=== PATIENT | male | born 1935 | race Caucasian/White ===

== ENCOUNTER 2018-06-14 15:12 | Inpatient (IN) | payer MEDICARE, MEDICAID ==
[~2018-06-14] VITALS: Ht 177.8 cm; Wt 90.5 kg
[~2018-06-14 15:12] MED LIST: ALLO300T2; AZIT250T7 PO; DOCU-94 PO; DOXA1TAB28; ENAL20TA70 OR; FAMO40TA49 PO; FLUO20CA19; ISOS20TA56; METO-169; TAMS0.4C36 OR; WARF2TAB55 PO
[2018-06-14 16:45] LABS: Basophils # (auto) 0 uL; Basophils % (auto) 0.5 % (0.0-2.0); Eosinophils # (auto) 0.1 uL; Eosinophils % (auto) 0.5 % (0.0-7.0); Hematocrit 30.6 % (41.0-53.0); Hemoglobin 10.2 g/dL (13.5-17.5); Lymphocytes # (auto) 0.6 uL; Lymphocytes % (auto) 6.3 % (10.0-50.0); Mean Corpuscular Hemoglobin 32.1 pg (28.0-32.0); Mean Corpuscular Hgb Conc. 33.3 g/dL (32.0-36.0); Mean Corpuscular Volume 96.5 fL (80.0-100.0); Monocytes # (auto) 0.6 uL; Monocytes % (auto) 6.4 % (0.0-12.0); Neutrophils # (auto) 8.4 uL; Neutrophils % (auto) 86.3 % (37.0-80.0); Platelet Count (auto) 110 10^3/uL (140-450); Red Blood Cells 3.17 10^6/uL (4.5-5.90); Red Cell Distribution Width 15.9 % (11.8-14.3); White Blood Cell 9.8 10^3/uL (4.4-10.8)
[2018-06-14 16:58] LABS: INR 2.3 (0.9-1.15); Partial Thromboplastin Time 51.3 sec (23.78-33.04); Prothrombin Time 23.5 sec (9.27-12.13)
[2018-06-14 17:01] LABS: Albumin 2.9 g/dL (3.4-5.0); BUN/Creatinine Ratio 10.8; Calcium 8.2 mg/dL (8.5-10.1); Magnesium 2.2 mg/dL (1.6-2.6); Potassium 5.1 mmol/L (3.5-5.1)
[2018-06-14 17:07] LABS: Bilirubin, Total 0.4 mg/dL (0.2-1.0); Total Protein 7.1 g/dL (6.4-8.2)
[2018-06-14 17:16] LABS: Urine Bacteria NONE SEEN /hpf (None Seen); Urine Blood Negative /uL (Negative); Urine Hyaline Cast FEW /lpf (0 - 2); Urine Mucus FEW (None Seen); Urine Specific Gravity 1.014 (1.001-1.035); Urine WBC 1 /hpf (0 - 3)
[2018-06-14] MEDS ORDERED: ASPirin 81 mg TAB PO ONE (17:45)
[2018-06-14] MEDS ORDERED: ENOXAPARIN SOD 100 MG/1 ML SYRINGE SC ONE (17:45)
[2018-06-14] MEDS ORDERED: B-CO1CAP6 PO (19:01)
[2018-06-14] MEDS ORDERED: MULT1CAP30 PO (19:01)
[2018-06-14] MEDS ORDERED: FERR27TA2 PO (19:01)
[2018-06-14] MEDS ORDERED: MAGN400T5 OR (19:01)
[2018-06-14] MEDS ORDERED: CETI10TA93 PO (19:01)
[2018-06-14] MEDS ORDERED: B-COCAP34 OR (19:01)
[2018-06-14] MEDS ORDERED: CHOL20007 PO (19:01)
[2018-06-14] MEDS ORDERED: CITA-73 PO (19:01)
[2018-06-14] MEDS ORDERED: MORPHINE SULF INJ 2 MG/ML SYRINGE 1ML IV PRN (21:45)
[2018-06-14] MEDS ORDERED: TEMAZEPAM 15 MG CAP PO PRN (21:45)
[2018-06-14] MEDS ORDERED: ONDANSETRON HCL 4 MG/2 ML VIAL IV PRN (21:45)
[2018-06-14] MEDS ORDERED: HYDROcodone-ACET 5/325MG TAB PO PRN (21:45)
[2018-06-14] MEDS ORDERED: NITROGLYCERIN 0.4 MG SL TAB SL PRN (21:45)
[2018-06-14] MEDS ORDERED: ACETAMINOPHEN 325 MG TAB PO PRN (21:45)
[2018-06-14] MEDS ORDERED: DOXAZOSIN MESYL 2 MG TAB PO SCH (22:00)
[2018-06-14] MEDS ORDERED: METOPROLOL TARTRATE 50 MG TAB PO SCH (22:00)
[2018-06-14 23:00] VITALS: BP 132/83
[2018-06-14] MEDS: FAMOTIDINE 20 MG TAB PO SCH (23:06)
[2018-06-14] MEDS: ISOSORBIDE MONONITRATE 20 MG TAB PO SCH (23:06)
[2018-06-14] MEDS ORDERED: FUROSEMIDE 20 MG/2 ML VIAL IV ONE (23:15)
[2018-06-14] MEDS ORDERED: ALBUTEROL SULF 2.5 MG/0.5ML(0.5%) NEB SOLN NEB PRN (23:30)
[2018-06-14] MEDS ORDERED: METO25TA62 PO (23:46)
[2018-06-15] VITALS (7 sets, daily range): BP systolic 108–145; BP diastolic 73–85
[2018-06-15 05:52] LABS: Basophils # (auto) 0.1 uL; Eosinophils # (auto) 0.1 uL; Eosinophils % (auto) 1.6 % (0.0-7.0); Hematocrit 33.1 % (41.0-53.0); Lymphocytes # (auto) 1.1 uL; Lymphocytes % (auto) 16.2 % (10.0-50.0); Mean Corpuscular Hemoglobin 33.6 pg (28.0-32.0); Mean Corpuscular Hgb Conc. 33.2 g/dL (32.0-36.0); Mean Corpuscular Volume 101.3 fL (80.0-100.0); Monocytes # (auto) 0.5 uL; Monocytes % (auto) 7.6 % (0.0-12.0); Neutrophils # (auto) 4.8 uL; Neutrophils % (auto) 73.6 % (37.0-80.0); Nucleated Red Blood Cells % 0.1 %; Platelet Count (auto) 129 10^3/uL (140-450); Red Blood Cells 3.26 10^6/uL (4.5-5.90); White Blood Cell 6.6 10^3/uL (4.4-10.8)
[2018-06-15 06:23] LABS: Alanine Aminotransferase 29 U/L (16-61); Albumin 3.3 g/dL (3.4-5.0); Anion Gap 8 (5-15); Aspartate Aminotransferase 27 U/L (15-37); BUN/Creatinine Ratio 11.4; Blood Urea Nitrogen 20 mg/dL (7-18); Calcium 9.1 mg/dL (8.5-10.1); Carbon Dioxide 22 mmol/L (21-32); Chloride 110 mmol/L (98-107); GFR African American 48 mL/min; GFR Non-African American 40 mL/min; Glucose 89 mg/dL (74-106); Potassium 4.9 mmol/L (3.5-5.1); Sodium 140 mmol/L (136-145)
[2018-06-15 06:25] LABS: Alkaline Phosphatase 139 U/L (45-117); Bilirubin, Total 0.6 mg/dL (0.2-1.0); Total Protein 8.2 g/dL (6.4-8.2)
[2018-06-15] MEDS ORDERED: FUROSEMIDE 40 MG TAB PO SCH (10:00)
[2018-06-15] MEDS: METOPROLOL SUCCINATE XL 50 MG TAB PO SCH ×2 (10:55→22:51)
[2018-06-15] MEDS: ASPirin 81 mg TAB PO SCH (10:55)
[2018-06-15] MEDS: ENALAPRIL MALEATE 10 MG TAB PO SCH (10:56)
[2018-06-15] MEDS: ALLOPURINOL 300 MG TAB PO SCH (10:56)
[2018-06-15] MEDS ORDERED: SODIUM CHLORIDE 0.9% 1,000 ML IV ONE (14:15)
[2018-06-15 14:32] LABS: INR 1.91 (0.9-1.15); Prothrombin Time 19.7 sec (9.27-12.13)
[2018-06-15] MEDS ORDERED: WARFARIN SODIUM 2.5 MG TAB PO ONE (17:00)
[2018-06-15] MEDS: ISOSORBIDE MONONITRATE 20 MG TAB PO SCH (22:50)
[2018-06-15] MEDS: FAMOTIDINE 20 MG TAB PO SCH (22:51)
[2018-06-16 05:49] VITALS: BP 107/77
[2018-06-16 05:54] LABS: INR 1.69 (0.9-1.15); Prothrombin Time 17.6 sec (9.27-12.13)
[2018-06-16 06:10] LABS: Albumin 3.1 g/dL (3.4-5.0); BUN/Creatinine Ratio 14.8; Bilirubin, Total 0.5 mg/dL (0.2-1.0); Calcium 8.6 mg/dL (8.5-10.1); Potassium 4.6 mmol/L (3.5-5.1); Total Protein 7.5 g/dL (6.4-8.2)
[2018-06-16 08:00] VITALS: BP 115/81
[2018-06-16] MEDS: ASPirin 81 mg TAB PO SCH (10:00)
[2018-06-16] MEDS: METOPROLOL SUCCINATE XL 50 MG TAB PO SCH ×2 (10:04→22:29)
[2018-06-16] MEDS: ENALAPRIL MALEATE 10 MG TAB PO SCH (10:04)
[2018-06-16] MEDS: ALLOPURINOL 300 MG TAB PO SCH (10:04)
[2018-06-16 12:00] VITALS: BP 110/75
[2018-06-16] MEDS ORDERED: FUROSEMIDE 40 MG TAB PO ONE (12:45)
[2018-06-16 17:00] VITALS: BP 98/58
[2018-06-16] MEDS ORDERED: WARFARIN SODIUM 5 MG TAB PO ONE (17:00)
[2018-06-16] MEDS ORDERED: TAMSULOSIN HYDROCHLORIDE 0.4 MG CAP PO SCH (18:00)
[2018-06-16 21:30] VITALS: BP 122/77
[2018-06-16] MEDS: FAMOTIDINE 20 MG TAB PO SCH (22:30)
[2018-06-16] MEDS: ISOSORBIDE MONONITRATE 20 MG TAB PO SCH (22:30)
[2018-06-17 04:59] VITALS: BP 97/64
[2018-06-17 06:12] LABS: Basophils # (auto) 0.1 uL; Basophils % (auto) 0.9 % (0.0-2.0); Eosinophils # (auto) 0.2 uL; Eosinophils % (auto) 3.4 % (0.0-7.0); Hematocrit 32.1 % (41.0-53.0); Hemoglobin 10.6 g/dL (13.5-17.5); Lymphocytes % (auto) 17.1 % (10.0-50.0); Mean Corpuscular Volume 97.1 fL (80.0-100.0); Monocytes # (auto) 0.5 uL; Monocytes % (auto) 8.7 % (0.0-12.0); Neutrophils # (auto) 4.1 uL; Neutrophils % (auto) 69.9 % (37.0-80.0); Nucleated Red Blood Cells % 0.1 %; Platelet Count (auto) 123 10^3/uL (140-450); Red Blood Cells 3.31 10^6/uL (4.5-5.90); Red Cell Distribution Width 15.6 % (11.8-14.3); White Blood Cell 5.8 10^3/uL (4.4-10.8)
[2018-06-17 06:24] LABS: INR 1.63 (0.9-1.15); Partial Thromboplastin Time 44.6 sec (23.78-33.04)
[2018-06-17 06:31] LABS: Potassium 4.3 mmol/L (3.5-5.1)
[2018-06-17 06:39] LABS: BUN/Creatinine Ratio 15.5; Calcium 8.9 mg/dL (8.5-10.1)
[2018-06-17] MEDS ORDERED: ALLOPURINOL 300 MG TAB PO SCH (10:00)
[2018-06-17] MEDS ORDERED: ENALAPRIL MALEATE 10 MG TAB PO SCH (10:00)
[2018-06-17] MEDS ORDERED: FUROSEMIDE 40 MG TAB PO SCH (10:00)
[2018-06-17] MEDS: METOPROLOL SUCCINATE XL 50 MG TAB PO SCH (10:55)
[2018-06-17 12:50] VITALS: BP 96/68
[2018-06-17 13:39] VITALS: BP 109/72
[2018-06-17] MEDS ORDERED: WARFARIN SODIUM 5 MG TAB PO ONE (17:00)
== END 2018-06-17 15:30 | disposition home or self-care (01) | DRG 280 ==
LOC: EDUNIT# 15:12 → ER 15:12 → TELE 15:13 → TELE-EAST 22:21
PROVIDERS: ADMIT Nurse Practitioner; ATTEND Internal Medicine
DX: I21.4 Non-ST elevation (NSTEMI) myocardial infarction (principal); I50.43 Acute on chronic combined systolic (congestive) and diastolic (congestive) heart failure; I13.0 Hypertensive heart and chronic kidney disease with heart failure and stage 1 through stage 4 chronic kidney disease, or unspecified chronic kidney disease; D68.69 Other thrombophilia; D64.9 Anemia, unspecified; J44.9 Chronic obstructive pulmonary disease, unspecified; I48.91 Unspecified atrial fibrillation; N40.0 Benign prostatic hyperplasia without lower urinary tract symptoms; M10.9 Gout, unspecified; N18.3 Chronic kidney disease, stage 3 (moderate); I25.10 Atherosclerotic heart disease of native coronary artery without angina pectoris; F32.9 Major depressive disorder, single episode, unspecified; E78.5 Hyperlipidemia, unspecified; Z80.1 Family history of malignant neoplasm of trachea, bronchus and lung; Z80.8 Family history of malignant neoplasm of other organs or systems; Z82.0 Family history of epilepsy and other diseases of the nervous system; Z82.49 Family history of ischemic heart disease and other diseases of the circulatory system; Z82.5 Family history of asthma and other chronic lower respiratory diseases; Z82.62 Family history of osteoporosis; Z83.3 Family history of diabetes mellitus; I25.2 Old myocardial infarction; Z85.828 Personal history of other malignant neoplasm of skin; Z95.810 Presence of automatic (implantable) cardiac defibrillator; Z82.3 Family history of stroke; Z81.8 Family history of other mental and behavioral disorders; Z80.42 Family history of malignant neoplasm of prostate; Z80.3 Family history of malignant neoplasm of breast
CPT/HCPCS: 36415; 71045; 73700; 80048; 80053; 81001; 83735; 83880; 84484; 85025; 85610; 85730; 87081; 93005; 93306; 96374

== ENCOUNTER 2018-07-04 13:35 | Inpatient (IN) | payer MEDICARE, MEDICAID ==
[~2018-07-04] VITALS: Ht 172.7 cm; Wt 93.0 kg
[~2018-07-04 13:35] MED LIST changes: +B-CO1CAP6 PO; +B-COCAP34 OR; +CETI10TA93 PO; +CHOL20007 PO; +CITA-73 PO; -DOXA1TAB28; +FERR27TA2 PO; +MAGN400T5 OR; -METO-169; +METO25TA62 PO; +MULT1CAP30 PO
[2018-07-04] MEDS ORDERED: SODIUM CHLORIDE 0.9% 500 ML IVB ONE (13:50)
[2018-07-04 14:44] LABS: Basophils # (auto) 0 uL; Basophils % (auto) 0.2 % (0.0-2.0); Eosinophils # (auto) 0 uL; Hematocrit 33.4 % (41.0-53.0); Hemoglobin 10.9 g/dL (13.5-17.5); Lymphocytes # (auto) 0.3 uL; Lymphocytes % (auto) 2.5 % (10.0-50.0); Mean Corpuscular Hemoglobin 31.5 pg (28.0-32.0); Mean Corpuscular Hgb Conc. 32.6 g/dL (32.0-36.0); Mean Corpuscular Volume 96.6 fL (80.0-100.0); Monocytes # (auto) 0.6 uL; Monocytes % (auto) 5.4 % (0.0-12.0); Neutrophils # (auto) 10.7 uL; Neutrophils % (auto) 91.9 % (37.0-80.0); Red Blood Cells 3.45 10^6/uL (4.5-5.90); White Blood Cell 11.6 10^3/uL (4.4-10.8)
[2018-07-04] MEDS ORDERED: LEVOFLOXACIN 750MG 150 ML IV ONE (14:45)
[2018-07-04 15:05] LABS: INR 2.31 (0.9-1.15); Partial Thromboplastin Time 43.7 sec (23.78-33.04); Prothrombin Time 23.6 sec (9.27-12.13)
[2018-07-04 15:07] LABS: Platelet Count (auto) 97 10^3/uL (140-450)
[2018-07-04 15:12] LABS: Alanine Aminotransferase 24 U/L (16-61); Albumin 3.1 g/dL (3.4-5.0); Alkaline Phosphatase 112 U/L (45-117); Anion Gap 11 (5-15); Aspartate Aminotransferase 30 U/L (15-37); Bilirubin, Total 0.5 mg/dL (0.2-1.0); Blood Alcohol < 3.0 mg/dL (0-5); Blood Urea Nitrogen 34 mg/dL (7-18); Calcium 8.5 mg/dL (8.5-10.1); Carbon Dioxide 23 mmol/L (21-32); Chloride 106 mmol/L (98-107); GFR African American 28 mL/min; GFR Non-African American 23 mL/min; Glucose 98 mg/dL (74-106); Magnesium 2.8 mg/dL (1.6-2.6); Potassium 4.9 mmol/L (3.5-5.1); Sodium 140 mmol/L (136-145); Total Protein 7.6 g/dL (6.4-8.2)
[2018-07-04] MEDS ORDERED: LACTULOSE 20Gm/30ML SOLN PO PRN (15:15)
[2018-07-04] MEDS ORDERED: PROMETHAZINE HCL 25 MG/ML 1ML IV PRN (15:15)
[2018-07-04] MEDS ORDERED: HYDROcodone-ACET 5/325MG TAB PO PRN (15:15)
[2018-07-04] MEDS ORDERED: LORazepam 0.5 MG TAB PO PRN (15:15)
[2018-07-04] MEDS ORDERED: MORPHINE SULF INJ 2 MG/ML SYRINGE 1ML IV PRN ×2 (15:15)
[2018-07-04] MEDS ORDERED: NITROGLYCERIN 0.4 MG SL TAB SL PRN (15:15)
[2018-07-04] MEDS ORDERED: ACETAMINOPHEN 500 MG TAB PO PRN (15:15)
[2018-07-04] MEDS ORDERED: PANTOPRAZOLE 40 MG TAB PO ONE (15:30)
[2018-07-04] MEDS ORDERED: cefTRIAXone 1GM/10ml IVPUSH 10 ML IV SCH (15:30)
[2018-07-04] MEDS ORDERED: AZITHROMYCIN 500MG/ 250ML 250 ML IV ONE (15:30)
[2018-07-04] MEDS ORDERED: ENOXAPARIN SOD 40 MG/0.4 ML SYRINGE SC ONE (15:30)
[2018-07-04] MEDS ORDERED: SODIUM CHLORIDE 0.9% 1,000 ML IV ONE (16:00)
[2018-07-04] MEDS: SODIUM CHLORIDE 0.9% 1,000 ML IV SCH ×2 (16:21→21:43)
[2018-07-04 16:58] LABS: Amylase 52 U/L (25-115); Lipase 148 U/L (73-393)
[2018-07-04] MEDS: ALBUTEROL SULF 2.5 MG/0.5ML(0.5%) NEB SOLN NEB SCH (18:13)
[2018-07-04 18:47] LABS: Hemoglobin 10.6 g/dL (13.5-17.5)
[2018-07-04] MEDS: TEMAZEPAM 15 MG CAP PO PRN (21:42)
[2018-07-04] MEDS: CARVEDILOL 3.125 MG TAB PO SCH (21:43)
[2018-07-05 01:04] LABS: Hematocrit 32.7 % (41.0-53.0); Hemoglobin 10.4 g/dL (13.5-17.5)
[2018-07-05] MEDS: ALBUTEROL SULF 2.5 MG/0.5ML(0.5%) NEB SOLN NEB SCH ×4 (01:12→18:42)
[2018-07-05 06:05] VITALS: BP 97/50
[2018-07-05 06:09] LABS: Basophils # (auto) 0.1 uL; Basophils % (auto) 0.6 % (0.0-2.0); Eosinophils # (auto) 0 uL; Eosinophils % (auto) 0.3 % (0.0-7.0); Hemoglobin 10.3 g/dL (13.5-17.5); Lymphocytes # (auto) 0.6 uL; Lymphocytes % (auto) 7.1 % (10.0-50.0); Mean Corpuscular Volume 96.8 fL (80.0-100.0); Monocytes # (auto) 0.5 uL; Monocytes % (auto) 5.7 % (0.0-12.0); Neutrophils # (auto) 7.7 uL; Neutrophils % (auto) 86.3 % (37.0-80.0); Platelet Count (auto) 78 10^3/uL (140-450); Red Blood Cells 3.21 10^6/uL (4.5-5.90); Red Cell Distribution Width 15.9 % (11.8-14.3); White Blood Cell 8.9 10^3/uL (4.4-10.8)
[2018-07-05 06:51] LABS: Albumin 2.8 g/dL (3.4-5.0); BUN/Creatinine Ratio 15.9; Bilirubin, Total 0.7 mg/dL (0.2-1.0); Calcium 8.6 mg/dL (8.5-10.1); Potassium 4.7 mmol/L (3.5-5.1); Total Protein 6.9 g/dL (6.4-8.2)
[2018-07-05 07:50] VITALS: BP 104/66
[2018-07-05] MEDS: cefTRIAXone 1GM/10ml IVPUSH 10 ML IV SCH (09:14)
[2018-07-05] MEDS ORDERED: PANTOPRAZOLE 40 MG TAB PO SCH (10:00)
[2018-07-05] MEDS ORDERED: ENOXAPARIN SOD 40 MG/0.4 ML SYRINGE SC SCH (10:00)
[2018-07-05] MEDS: CARVEDILOL 3.125 MG TAB PO SCH ×2 (10:00→21:24)
[2018-07-05] MEDS: AZITHROMYCIN 500MG/ 250ML 250 ML IV SCH (10:09)
[2018-07-05 11:47] VITALS: BP 101/61
[2018-07-05] MEDS ORDERED: PANTOPRAZOLE 40 MG/10 ML VIAL IV ONE (12:15)
[2018-07-05 14:01] LABS: INR 2.5 (0.9-1.15); Prothrombin Time 25.4 sec (9.27-12.13)
[2018-07-05] MEDS: SODIUM CHLORIDE 0.9% 1,000 ML IV SCH ×2 (14:36→23:56)
[2018-07-05 15:50] VITALS: BP 97/64
[2018-07-05] MEDS ORDERED: WARFARIN SODIUM 2.5 MG TAB PO ONE (17:00)
[2018-07-05] MEDS: TAMSULOSIN HYDROCHLORIDE 0.4 MG CAP PO SCH (17:35)
[2018-07-05 19:50] VITALS: BP 123/62
[2018-07-05] MEDS: TEMAZEPAM 15 MG CAP PO PRN (23:43)
[2018-07-06] VITALS: BP 108/66
[2018-07-06] MEDS: ALBUTEROL SULF 2.5 MG/0.5ML(0.5%) NEB SOLN NEB SCH ×4 (00:25→18:11)
[2018-07-06 04:00] VITALS: BP 105/73
[2018-07-06 07:10] LABS: Basophils # (auto) 0 uL; Eosinophils # (auto) 0.1 uL; Hemoglobin 9.1 g/dL (13.5-17.5); Lymphocytes # (auto) 0.5 uL; Mean Corpuscular Hgb Conc. 32.5 g/dL (32.0-36.0); Monocytes # (auto) 0.4 uL
[2018-07-06 07:13] LABS: Basophils % (auto) 0.3 % (0.0-2.0); Lymphocytes % (auto) 8.9 % (10.0-50.0); Mean Corpuscular Hemoglobin 31.4 pg (28.0-32.0); Mean Corpuscular Volume 96.7 fL (80.0-100.0); Monocytes % (auto) 7.1 % (0.0-12.0); Neutrophils # (auto) 4.5 uL; Neutrophils % (auto) 82.7 % (37.0-80.0); Platelet Count (auto) 66 10^3/uL (140-450); Red Cell Distribution Width 16.1 % (11.8-14.3); White Blood Cell 5.4 10^3/uL (4.4-10.8)
[2018-07-06 07:16] LABS: Albumin 2.7 g/dL (3.4-5.0); BUN/Creatinine Ratio 14.4; Bilirubin, Total 0.6 mg/dL (0.2-1.0); Calcium 8.6 mg/dL (8.5-10.1); Magnesium 2.2 mg/dL (1.6-2.6); Total Protein 6.8 g/dL (6.4-8.2)
[2018-07-06 07:46] LABS: INR 2.29 (0.9-1.15); Prothrombin Time 23.4 sec (9.27-12.13)
[2018-07-06 08:00] VITALS: BP 107/79
[2018-07-06] MEDS ORDERED: MAGNESIUM OXIDE 400 MG TAB PO SCH (10:00)
[2018-07-06] MEDS: CARVEDILOL 3.125 MG TAB PO SCH ×2 (10:00→22:00)
[2018-07-06] MEDS ORDERED: ENALAPRIL MALEATE 10 MG TAB PO SCH ×2 (10:00)
[2018-07-06] MEDS: MAGNESIUM OXIDE 400 MG TAB PO SCH (10:42)
[2018-07-06] MEDS: FLUoxetine HCL 20 MG CAP PO SCH (10:42)
[2018-07-06] MEDS: AZITHROMYCIN 500MG/ 250ML 250 ML IV SCH (10:42)
[2018-07-06] MEDS: cefTRIAXone 1GM/10ml IVPUSH 10 ML IV SCH (10:43)
[2018-07-06] MEDS: PANTOPRAZOLE 40 MG/10 ML VIAL IV SCH (10:43)
[2018-07-06 12:00] VITALS: BP 102/65
[2018-07-06 16:00] VITALS: BP 111/65
[2018-07-06] MEDS: SODIUM CHLORIDE 0.9% 1,000 ML IV SCH (16:15)
[2018-07-06] MEDS ORDERED: WARFARIN SODIUM 1 MG TAB PO ONE (17:00)
[2018-07-06] MEDS: TAMSULOSIN HYDROCHLORIDE 0.4 MG CAP PO SCH (17:47)
[2018-07-06 19:59] VITALS: BP 100/63
[2018-07-06] MEDS: TEMAZEPAM 15 MG CAP PO PRN (22:14)
[2018-07-07] MEDS: ALBUTEROL SULF 2.5 MG/0.5ML(0.5%) NEB SOLN NEB SCH ×4 (00:07→19:52)
[2018-07-07] MEDS: SODIUM CHLORIDE 0.9% 1,000 ML IV SCH ×3 (01:05→13:34)
[2018-07-07 05:17] LABS: Eosinophils # (auto) 0.1 uL; Eosinophils % (auto) 2.2 % (0.0-7.0); Hemoglobin 9.1 g/dL (13.5-17.5); Lymphocytes # (auto) 0.4 uL; Lymphocytes % (auto) 12.1 % (10.0-50.0); Mean Corpuscular Hemoglobin 32.2 pg (28.0-32.0); Platelet Count (auto) 63 10^3/uL (140-450); White Blood Cell 3.5 10^3/uL (4.4-10.8)
[2018-07-07 05:19] LABS: Basophils # (auto) 0 uL; Basophils % (auto) 0.7 % (0.0-2.0); Hematocrit 27.4 % (41.0-53.0); Mean Corpuscular Hgb Conc. 33.2 g/dL (32.0-36.0); Mean Corpuscular Volume 97.1 fL (80.0-100.0); Monocytes # (auto) 0.2 uL; Neutrophils # (auto) 2.8 uL; Red Blood Cells 2.82 10^6/uL (4.5-5.90); Red Cell Distribution Width 15.6 % (11.8-14.3)
[2018-07-07 05:29] LABS: INR 2.35 (0.9-1.15)
[2018-07-07 05:36] LABS: Albumin 2.6 g/dL (3.4-5.0); BUN/Creatinine Ratio 12.4; Bilirubin, Total 0.5 mg/dL (0.2-1.0); Calcium 8.5 mg/dL (8.5-10.1); Potassium 4.4 mmol/L (3.5-5.1); Total Protein 6.5 g/dL (6.4-8.2)
[2018-07-07 07:50] VITALS: BP 109/61
[2018-07-07] MEDS: cefTRIAXone 1GM/10ml IVPUSH 10 ML IV SCH (09:15)
[2018-07-07] MEDS: PANTOPRAZOLE 40 MG/10 ML VIAL IV SCH (10:35)
[2018-07-07] MEDS: MAGNESIUM OXIDE 400 MG TAB PO SCH (10:36)
[2018-07-07] MEDS: FLUoxetine HCL 20 MG CAP PO SCH (10:36)
[2018-07-07] MEDS: AZITHROMYCIN 500MG/ 250ML 250 ML IV SCH (10:37)
[2018-07-07] MEDS: CARVEDILOL 3.125 MG TAB PO SCH ×2 (10:37→22:00)
[2018-07-07 11:51] VITALS: BP 102/69
[2018-07-07 14:34] VITALS: BP 102/69
[2018-07-07 16:00] VITALS: BP 105/74
[2018-07-07] MEDS ORDERED: WARFARIN SODIUM 2.5 MG TAB PO ONE (17:00)
[2018-07-07] MEDS: TAMSULOSIN HYDROCHLORIDE 0.4 MG CAP PO SCH (17:31)
[2018-07-07] MEDS: TEMAZEPAM 15 MG CAP PO PRN (21:00)
[2018-07-07 22:00] VITALS: BP 99/62
[2018-07-08] MEDS: ALBUTEROL SULF 2.5 MG/0.5ML(0.5%) NEB SOLN NEB SCH ×4 (00:39→19:26)
[2018-07-08 05:00] VITALS: BP 115/64
[2018-07-08] MEDS: SODIUM CHLORIDE 0.9% 1,000 ML IV SCH ×3 (05:25→21:29)
[2018-07-08 07:08] LABS: Basophils # (auto) 0 uL; Basophils % (auto) 0.5 % (0.0-2.0); Eosinophils # (auto) 0.1 uL; Eosinophils % (auto) 2.9 % (0.0-7.0); Hematocrit 27.6 % (41.0-53.0); Hemoglobin 9.2 g/dL (13.5-17.5); Lymphocytes # (auto) 0.3 uL; Lymphocytes % (auto) 9.7 % (10.0-50.0); Mean Corpuscular Hemoglobin 32.3 pg (28.0-32.0); Mean Corpuscular Hgb Conc. 33.2 g/dL (32.0-36.0); Mean Corpuscular Volume 97.3 fL (80.0-100.0); Monocytes # (auto) 0.3 uL; Monocytes % (auto) 8.6 % (0.0-12.0); Neutrophils # (auto) 2.7 uL; Neutrophils % (auto) 78.3 % (37.0-80.0); Platelet Count (auto) 71 10^3/uL (140-450); Red Blood Cells 2.83 10^6/uL (4.5-5.90); Red Cell Distribution Width 15.8 % (11.8-14.3); White Blood Cell 3.4 10^3/uL (4.4-10.8)
[2018-07-08 07:16] LABS: Calcium 8.7 mg/dL (8.5-10.1); Potassium 4.3 mmol/L (3.5-5.1)
[2018-07-08 07:23] LABS: Albumin 2.5 g/dL (3.4-5.0); Bilirubin, Total 0.6 mg/dL (0.2-1.0); Total Protein 6.5 g/dL (6.4-8.2)
[2018-07-08 07:26] LABS: INR 2.53 (0.9-1.15); Prothrombin Time 25.7 sec (9.27-12.13)
[2018-07-08 09:00] VITALS: BP 110/70
[2018-07-08] MEDS: cefTRIAXone 1GM/10ml IVPUSH 10 ML IV SCH (09:37)
[2018-07-08] MEDS: PANTOPRAZOLE 40 MG/10 ML VIAL IV SCH (09:37)
[2018-07-08] MEDS: MAGNESIUM OXIDE 400 MG TAB PO SCH (09:39)
[2018-07-08] MEDS: FLUoxetine HCL 20 MG CAP PO SCH (09:39)
[2018-07-08] MEDS: AZITHROMYCIN 500MG/ 250ML 250 ML IV SCH (09:40)
[2018-07-08] MEDS: CARVEDILOL 3.125 MG TAB PO SCH ×2 (09:40→21:28)
[2018-07-08 13:00] VITALS: BP 107/74
[2018-07-08 17:00] VITALS: BP 109/67
[2018-07-08] MEDS ORDERED: WARFARIN SODIUM 2.5 MG TAB PO ONE (17:00)
[2018-07-08] MEDS: TAMSULOSIN HYDROCHLORIDE 0.4 MG CAP PO SCH (17:40)
[2018-07-08] MEDS: TEMAZEPAM 15 MG CAP PO PRN (21:28)
[2018-07-08 22:00] VITALS: BP 118/70
[2018-07-09] MEDS: ALBUTEROL SULF 2.5 MG/0.5ML(0.5%) NEB SOLN NEB SCH ×4 (00:31→18:32)
[2018-07-09 05:00] VITALS: BP 114/76
[2018-07-09] MEDS: SODIUM CHLORIDE 0.9% 1,000 ML IV SCH ×3 (05:38→17:27)
[2018-07-09 06:41] LABS: INR 2.58 (0.9-1.15); Prothrombin Time 26.2 sec (9.27-12.13)
[2018-07-09 06:46] LABS: Basophils # (auto) 0 uL; Basophils % (auto) 0.6 % (0.0-2.0); Eosinophils # (auto) 0.1 uL; Eosinophils % (auto) 2.9 % (0.0-7.0); Hemoglobin 9.3 g/dL (13.5-17.5); Lymphocytes # (auto) 0.4 uL; Lymphocytes % (auto) 10.6 % (10.0-50.0); Mean Corpuscular Hemoglobin 32.2 pg (28.0-32.0); Mean Corpuscular Hgb Conc. 33.1 g/dL (32.0-36.0); Mean Corpuscular Volume 97.1 fL (80.0-100.0); Monocytes # (auto) 0.4 uL; Monocytes % (auto) 9.6 % (0.0-12.0); Neutrophils % (auto) 76.3 % (37.0-80.0); Nucleated Red Blood Cells % 0.1 %; Platelet Count (auto) 79 10^3/uL (140-450); Red Blood Cells 2.88 10^6/uL (4.5-5.90); Red Cell Distribution Width 15.6 % (11.8-14.3); White Blood Cell 3.9 10^3/uL (4.4-10.8)
[2018-07-09 06:53] LABS: Potassium 4.2 mmol/L (3.5-5.1)
[2018-07-09 06:58] LABS: Albumin 2.6 g/dL (3.4-5.0); BUN/Creatinine Ratio 11.4; Bilirubin, Total 0.4 mg/dL (0.2-1.0); Calcium 8.7 mg/dL (8.5-10.1); Total Protein 6.5 g/dL (6.4-8.2)
[2018-07-09 08:30] VITALS: BP 121/78
[2018-07-09] MEDS: AZITHROMYCIN 500MG/ 250ML 250 ML IV SCH (09:30)
[2018-07-09] MEDS: PANTOPRAZOLE 40 MG/10 ML VIAL IV SCH (09:30)
[2018-07-09] MEDS: cefTRIAXone 1GM/10ml IVPUSH 10 ML IV SCH (09:30)
[2018-07-09] MEDS: FLUoxetine HCL 20 MG CAP PO SCH (09:31)
[2018-07-09] MEDS: MAGNESIUM OXIDE 400 MG TAB PO SCH (09:31)
[2018-07-09] MEDS: CARVEDILOL 3.125 MG TAB PO SCH ×2 (09:32→21:28)
[2018-07-09 13:08] VITALS: BP 137/85
[2018-07-09 16:56] VITALS: BP 110/68
[2018-07-09] MEDS ORDERED: WARFARIN SODIUM 2.5 MG TAB PO ONE (17:00)
[2018-07-09] MEDS: TAMSULOSIN HYDROCHLORIDE 0.4 MG CAP PO SCH (17:26)
[2018-07-09] MEDS: TEMAZEPAM 15 MG CAP PO PRN (21:28)
[2018-07-09 22:34] VITALS: BP 110/74
[2018-07-10] MEDS: ALBUTEROL SULF 2.5 MG/0.5ML(0.5%) NEB SOLN NEB SCH ×3 (00:19→11:27)
[2018-07-10] MEDS: SODIUM CHLORIDE 0.9% 1,000 ML IV SCH ×2 (02:18→12:00)
[2018-07-10 05:52] VITALS: BP 119/81
[2018-07-10 07:33] LABS: INR 2.55 (0.9-1.15); Prothrombin Time 25.9 sec (9.27-12.13)
[2018-07-10] MEDS: cefTRIAXone 1GM/10ml IVPUSH 10 ML IV SCH (09:00)
[2018-07-10 09:49] LABS: Basophils # (auto) 0 uL; Basophils % (auto) 0.8 % (0.0-2.0); Eosinophils # (auto) 0.2 uL; Eosinophils % (auto) 3.5 % (0.0-7.0); Hematocrit 29.9 % (41.0-53.0); Hemoglobin 9.5 g/dL (13.5-17.5); Lymphocytes # (auto) 0.6 uL; Lymphocytes % (auto) 13.1 % (10.0-50.0); Mean Corpuscular Hemoglobin 30.8 pg (28.0-32.0); Mean Corpuscular Hgb Conc. 31.7 g/dL (32.0-36.0); Mean Corpuscular Volume 97.4 fL (80.0-100.0); Monocytes # (auto) 0.4 uL; Monocytes % (auto) 8.7 % (0.0-12.0); Neutrophils # (auto) 3.4 uL; Neutrophils % (auto) 73.9 % (37.0-80.0); Nucleated Red Blood Cells % 0.1 %; Platelet Count (auto) 88 10^3/uL (140-450); Red Blood Cells 3.07 10^6/uL (4.5-5.90); Red Cell Distribution Width 15.9 % (11.8-14.3); White Blood Cell 4.6 10^3/uL (4.4-10.8)
[2018-07-10] MEDS: AZITHROMYCIN 500MG/ 250ML 250 ML IV SCH (10:00)
[2018-07-10] MEDS: PANTOPRAZOLE 40 MG/10 ML VIAL IV SCH (10:00)
[2018-07-10 10:01] LABS: BUN/Creatinine Ratio 13.3; Calcium 8.8 mg/dL (8.5-10.1); Potassium 4.3 mmol/L (3.5-5.1)
[2018-07-10] MEDS: MAGNESIUM OXIDE 400 MG TAB PO SCH (10:22)
[2018-07-10] MEDS: CARVEDILOL 3.125 MG TAB PO SCH (10:22)
[2018-07-10] MEDS: FLUoxetine HCL 20 MG CAP PO SCH (10:22)
[2018-07-10] MEDS ORDERED: WARFARIN SODIUM 2.5 MG TAB PO ONE (17:00)
== END 2018-07-10 13:03 | disposition home or self-care (01) | DRG 280 ==
LOC: ER 13:35 → EDBD 13:35 → TELE 13:36 → DOU IN ICU 07-05 06:01 → TELE-EAST 07-07 18:47
PROVIDERS: ADMIT Internal Medicine; ATTEND Family Medicine
DX: I21.4 Non-ST elevation (NSTEMI) myocardial infarction (principal); J18.9 Pneumonia, unspecified organism; G93.41 Metabolic encephalopathy; N17.9 Acute kidney failure, unspecified; I13.0 Hypertensive heart and chronic kidney disease with heart failure and stage 1 through stage 4 chronic kidney disease, or unspecified chronic kidney disease; J44.0 Chronic obstructive pulmonary disease with (acute) lower respiratory infection; K80.10 Calculus of gallbladder with chronic cholecystitis without obstruction; E83.41 Hypermagnesemia; K52.9 Noninfective gastroenteritis and colitis, unspecified; N18.3 Chronic kidney disease, stage 3 (moderate); I25.10 Atherosclerotic heart disease of native coronary artery without angina pectoris; D63.8 Anemia in other chronic diseases classified elsewhere; D69.6 Thrombocytopenia, unspecified; Z85.828 Personal history of other malignant neoplasm of skin; I50.9 Heart failure, unspecified; F32.9 Major depressive disorder, single episode, unspecified; Z81.8 Family history of other mental and behavioral disorders; I48.91 Unspecified atrial fibrillation; E78.5 Hyperlipidemia, unspecified; I25.5 Ischemic cardiomyopathy; N40.0 Benign prostatic hyperplasia without lower urinary tract symptoms; M10.9 Gout, unspecified; K82.8 Other specified diseases of gallbladder; N26.1 Atrophy of kidney (terminal); Z82.5 Family history of asthma and other chronic lower respiratory diseases; Z83.3 Family history of diabetes mellitus; Z91.041 Radiographic dye allergy status; Z79.899 Other long term (current) drug therapy; Z95.0 Presence of cardiac pacemaker
CPT/HCPCS: 36415; 70450; 71045; 74176; 76705; 78226; 80048; 80053; 80320; 82150; 82550; 83690; 83735; 83880; 84443; 84484; 85014; 85018; 85025; 85045; 85610; 85652; 85730; 87040; 87081; 93005; 94640; 94761; 96365; 96366; 96368; 96372; 96375; 97163; C9113; J0696; J1956

== ENCOUNTER 2018-09-04 21:31 | Inpatient (IN) | payer MEDICARE, MEDICAID ==
[~2018-09-04] VITALS: Ht 177.8 cm; Wt 90.0 kg
[2018-09-04 22:18] LABS: Basophils # (auto) 0 uL; Basophils % (auto) 0.7 % (0.0-2.0); Eosinophils # (auto) 0 uL; Eosinophils % (auto) 1.1 % (0.0-7.0); Hematocrit 31.2 % (41.0-53.0); Hemoglobin 10.3 g/dL (13.5-17.5); Lymphocytes # (auto) 0.6 uL; Lymphocytes % (auto) 14.2 % (10.0-50.0); Mean Corpuscular Hemoglobin 31.8 pg (28.0-32.0); Mean Corpuscular Volume 96.3 fL (80.0-100.0); Monocytes # (auto) 0.4 uL; Monocytes % (auto) 8.7 % (0.0-12.0); Neutrophils # (auto) 3.4 uL; Neutrophils % (auto) 75.3 % (37.0-80.0); Nucleated Red Blood Cells % 0.1 %; Platelet Count (auto) 72 10^3/uL (140-450); Red Blood Cells 3.24 10^6/uL (4.5-5.90); Red Cell Distribution Width 15.9 % (11.8-14.3); White Blood Cell 4.5 10^3/uL (4.4-10.8)
[2018-09-04 22:21] LABS: Albumin 3.6 g/dL (3.4-5.0); Calcium 8.8 mg/dL (8.5-10.1); Magnesium 2.9 mg/dL (1.6-2.6)
[2018-09-04 22:24] LABS: BUN/Creatinine Ratio 20.4; Bilirubin, Total 0.4 mg/dL (0.2-1.0); Total Protein 7.5 g/dL (6.4-8.2)
[2018-09-04 22:25] LABS: INR 2.32 (0.9-1.15); Partial Thromboplastin Time 53.2 sec (23.78-33.04); Prothrombin Time 23.7 sec (9.27-12.13)
[2018-09-04 22:31] LABS: Urine Bacteria NONE SEEN /hpf (None Seen); Urine Blood Negative /uL (Negative); Urine Mucus FEW (None Seen); Urine WBC 1 /hpf (0 - 3)
[2018-09-04 22:39] LABS: Potassium 6.3 mmol/L (3.5-5.1)
[2018-09-04] MEDS ORDERED: InsuLIN REG 1unit/0.01ml Soln (100units/ml) IV ONE (23:00)
[2018-09-04] MEDS ORDERED: CALCIUM GLUC 4.65meq/50ml D5AE 50 ML IV ONE (23:00)
[2018-09-04] MEDS ORDERED: DEXTROSE (50%) 50ML SYRG IV ONE (23:00)
[2018-09-04] MEDS ORDERED: SODIUM BICARBONATE 8.4 % INJ 50ML VIAL IV ONE (23:00)
[2018-09-05] MEDS ORDERED: FUROSEMIDE 20 MG/2 ML VIAL IV ONE (00:30)
[2018-09-05] MEDS ORDERED: SODIUM CHLORIDE 0.9% 1,000 ML IV ONE (02:15)
[2018-09-05] MEDS ORDERED: SODIUM POLYSTYRENE SULF 15 GM POWDER PO ONE ×3 (02:30→10:45)
[2018-09-05] MEDS: SODIUM CHLORIDE 0.9% 1,000 ML IV SCH ×2 (02:45→12:53)
[2018-09-05 03:45] VITALS: BP 91/54
[2018-09-05 07:40] LABS: Albumin 3.1 g/dL (3.4-5.0); Calcium 8.6 mg/dL (8.5-10.1)
[2018-09-05 07:44] LABS: BUN/Creatinine Ratio 20.4; Bilirubin, Total 0.4 mg/dL (0.2-1.0); Total Protein 6.9 g/dL (6.4-8.2)
[2018-09-05 08:03] LABS: Potassium 6.1 mmol/L (3.5-5.1)
[2018-09-05 09:00] VITALS: BP 93/59
[2018-09-05] MEDS ORDERED: FLUoxetine HCL 20 MG CAP PO ONE (10:00)
[2018-09-05] MEDS ORDERED: METOPROLOL SUCCINATE XL 50 MG TAB PO ONE (10:00)
[2018-09-05] MEDS: FAMOTIDINE 20 MG TAB PO SCH (10:00)
[2018-09-05] MEDS ORDERED: TAMSULOSIN HYDROCHLORIDE 0.4 MG CAP PO ONE (10:00)
[2018-09-05] MEDS: METOPROLOL SUCCINATE XL 50 MG TAB PO SCH ×2 (10:00→21:08)
[2018-09-05] MEDS ORDERED: DOCUSATE SOD 100 MG CAP PO ONE (10:00)
[2018-09-05] MEDS ORDERED: FAMOTIDINE 20 MG TAB PO ONE (10:00)
[2018-09-05] MEDS: FLUoxetine HCL 20 MG CAP PO SCH (10:24)
[2018-09-05] MEDS: TAMSULOSIN HYDROCHLORIDE 0.4 MG CAP PO SCH (10:25)
[2018-09-05] MEDS: DOCUSATE SOD 100 MG CAP PO SCH (10:28)
[2018-09-05] MEDS ORDERED: InsuLIN REG 1unit/0.01ml Soln (100units/ml) IV ONE (11:30)
[2018-09-05] MEDS ORDERED: DEXTROSE (50%) 50ML SYRG IV ONE (11:30)
[2018-09-05] MEDS ORDERED: ALBUTEROL SULF 2.5 MG/0.5ML(0.5%) NEB SOLN NEB ONE (11:30)
[2018-09-05] MEDS ORDERED: SODIUM BICARBONATE 8.4 % INJ 50ML VIAL IV ONE (11:30)
[2018-09-05 13:00] VITALS: BP 100/66
[2018-09-05 14:36] LABS: BUN/Creatinine Ratio 21.8; Calcium 8.5 mg/dL (8.5-10.1); Potassium 4.6 mmol/L (3.5-5.1)
[2018-09-05 16:39] VITALS: BP 92/45
[2018-09-05] MEDS ORDERED: WARFARIN SODIUM 5 MG TAB PO ONE (17:00)
[2018-09-05] MEDS: WARFARIN SODIUM 1 MG TAB PO SCH (17:21)
[2018-09-05 22:00] VITALS: BP 95/43
[2018-09-06] MEDS: SODIUM CHLORIDE 0.9% 1,000 ML IV SCH ×3 (02:05→20:43)
[2018-09-06 05:00] VITALS: BP 98/60
[2018-09-06 07:27] LABS: INR 2.12 (0.9-1.15); Prothrombin Time 21.7 sec (9.27-12.13)
[2018-09-06 07:34] LABS: BUN/Creatinine Ratio 23.5; Calcium 8.8 mg/dL (8.5-10.1)
[2018-09-06 07:44] LABS: Potassium 5.7 mmol/L (3.5-5.1)
[2018-09-06 09:00] VITALS: BP 85/51
[2018-09-06] MEDS: METOPROLOL SUCCINATE XL 50 MG TAB PO SCH ×2 (10:00→21:45)
[2018-09-06] MEDS: FAMOTIDINE 20 MG TAB PO SCH (11:01)
[2018-09-06] MEDS: FLUoxetine HCL 20 MG CAP PO SCH (11:01)
[2018-09-06] MEDS: DOCUSATE SOD 100 MG CAP PO SCH (11:01)
[2018-09-06] MEDS: TAMSULOSIN HYDROCHLORIDE 0.4 MG CAP PO SCH (11:02)
[2018-09-06 13:00] VITALS: BP 103/61
[2018-09-06 17:00] VITALS: BP 91/69
[2018-09-06] MEDS: WARFARIN SODIUM 1 MG TAB PO SCH (17:13)
[2018-09-06 19:42] LABS: BUN/Creatinine Ratio 24.9; Calcium 8.4 mg/dL (8.5-10.1); Potassium 5.5 mmol/L (3.5-5.1)
[2018-09-06 22:00] VITALS: BP 100/58
[2018-09-07 05:00] VITALS: BP 103/74
[2018-09-07] MEDS: SODIUM CHLORIDE 0.9% 1,000 ML IV SCH ×2 (05:15→16:18)
[2018-09-07 07:45] LABS: Basophils # (auto) 0 uL; Eosinophils # (auto) 0.1 uL; Hematocrit 26.7 % (41.0-53.0); Hemoglobin 8.8 g/dL (13.5-17.5); Mean Corpuscular Hemoglobin 31.8 pg (28.0-32.0); Mean Corpuscular Hgb Conc. 32.9 g/dL (32.0-36.0); Mean Corpuscular Volume 96.6 fL (80.0-100.0); Monocytes # (auto) 0.3 uL; Neutrophils # (auto) 2.1 uL; Platelet Count (auto) 51 10^3/uL (140-450); Red Blood Cells 2.76 10^6/uL (4.5-5.90); White Blood Cell 3.3 10^3/uL (4.4-10.8)
[2018-09-07 07:46] LABS: Basophils % (auto) 0.8 % (0.0-2.0); Lymphocytes # (auto) 0.7 uL; Lymphocytes % (auto) 22.9 % (10.0-50.0); Neutrophils % (auto) 65.3 % (37.0-80.0); Red Cell Distribution Width 16.1 % (11.8-14.3)
[2018-09-07 07:57] LABS: Calcium 8.7 mg/dL (8.5-10.1); Potassium 5.3 mmol/L (3.5-5.1)
[2018-09-07 07:58] LABS: BUN/Creatinine Ratio 25.3; INR 2.33 (0.9-1.15); Prothrombin Time 23.8 sec (9.27-12.13)
[2018-09-07 08:37] VITALS: BP 101/54
[2018-09-07] MEDS: METOPROLOL SUCCINATE XL 50 MG TAB PO SCH ×2 (10:00→22:00)
[2018-09-07] MEDS: TAMSULOSIN HYDROCHLORIDE 0.4 MG CAP PO SCH (10:15)
[2018-09-07] MEDS: FAMOTIDINE 20 MG TAB PO SCH (10:15)
[2018-09-07] MEDS: DOCUSATE SOD 100 MG CAP PO SCH (10:15)
[2018-09-07] MEDS: FLUoxetine HCL 20 MG CAP PO SCH (10:16)
[2018-09-07 13:18] VITALS: BP 104/63
[2018-09-07 16:49] VITALS: BP 100/54
[2018-09-07] MEDS: WARFARIN SODIUM 1 MG TAB PO SCH (17:22)
[2018-09-07 22:00] VITALS: BP 98/59
[2018-09-08] MEDS: SODIUM CHLORIDE 0.9% 1,000 ML IV SCH ×2 (01:01→11:46)
[2018-09-08 05:00] VITALS: BP 110/76
[2018-09-08 06:51] LABS: INR 2.57 (0.9-1.15); Prothrombin Time 26.1 sec (9.27-12.13)
[2018-09-08 07:16] LABS: BUN/Creatinine Ratio 22.2; Calcium 8.7 mg/dL (8.5-10.1)
[2018-09-08 08:21] LABS: Potassium 5.6 mmol/L (3.5-5.1)
[2018-09-08 08:31] VITALS: BP 136/55
[2018-09-08] MEDS ORDERED: SODIUM POLYSTYRENE SULF 15 GM POWDER PO ONE (09:15)
[2018-09-08] MEDS: TAMSULOSIN HYDROCHLORIDE 0.4 MG CAP PO SCH (10:38)
[2018-09-08] MEDS: DOCUSATE SOD 100 MG CAP PO SCH (10:38)
[2018-09-08] MEDS: METOPROLOL SUCCINATE XL 50 MG TAB PO SCH ×2 (10:38→21:51)
[2018-09-08] MEDS: FAMOTIDINE 20 MG TAB PO SCH (10:38)
[2018-09-08] MEDS: FLUoxetine HCL 20 MG CAP PO SCH (10:39)
[2018-09-08 13:17] VITALS: BP 115/66
[2018-09-08] MEDS ORDERED: EPOETIN ALFA 10,000 UNIT/1 ML VIAL SC ONE (14:00)
[2018-09-08 14:06] LABS: Basophils # (auto) 0 uL; Basophils % (auto) 0.5 % (0.0-2.0); Eosinophils # (auto) 0.1 uL; Eosinophils % (auto) 1.4 % (0.0-7.0); Neutrophils # (auto) 3.2 uL; White Blood Cell 4.3 10^3/uL (4.4-10.8)
[2018-09-08 14:10] LABS: Hematocrit 27.5 % (41.0-53.0); Lymphocytes # (auto) 0.7 uL; Lymphocytes % (auto) 15.9 % (10.0-50.0); Mean Corpuscular Hgb Conc. 32.9 g/dL (32.0-36.0); Mean Corpuscular Volume 97.5 fL (80.0-100.0); Monocytes # (auto) 0.3 uL; Neutrophils % (auto) 74.2 % (37.0-80.0); Platelet Count (auto) 56 10^3/uL (140-450); Red Blood Cells 2.82 10^6/uL (4.5-5.90); Red Cell Distribution Width 16.5 % (11.8-14.3)
[2018-09-08 16:33] VITALS: BP 112/66
[2018-09-08] MEDS: SOD CHL 0.45% 1,000 ML IV SCH (18:15)
[2018-09-08] MEDS: WARFARIN SODIUM 1 MG TAB PO SCH (18:15)
[2018-09-08 22:33] VITALS: BP 114/70
[2018-09-09] MEDS: SOD CHL 0.45% 1,000 ML IV SCH ×3 (03:22→22:00)
[2018-09-09 05:18] VITALS: BP 108/68
[2018-09-09 06:56] LABS: INR 2.78 (0.9-1.15); Prothrombin Time 28.1 sec (9.27-12.13)
[2018-09-09 07:13] LABS: BUN/Creatinine Ratio 17.9; Bilirubin, Total 0.5 mg/dL (0.2-1.0); Calcium 8.4 mg/dL (8.5-10.1); Total Protein 6.5 g/dL (6.4-8.2)
[2018-09-09 07:44] LABS: Potassium 5.6 mmol/L (3.5-5.1)
[2018-09-09] MEDS ORDERED: FUROSEMIDE 40 MG/4 ML VIAL IV ONE (08:15)
[2018-09-09] MEDS ORDERED: SODIUM CHLORIDE 0.9% 500 ML IV ONE (08:15)
[2018-09-09] MEDS: DOCUSATE SOD 100 MG CAP PO SCH (09:04)
[2018-09-09] MEDS: TAMSULOSIN HYDROCHLORIDE 0.4 MG CAP PO SCH (09:04)
[2018-09-09] MEDS: FLUoxetine HCL 20 MG CAP PO SCH (09:04)
[2018-09-09] MEDS: FAMOTIDINE 20 MG TAB PO SCH (09:04)
[2018-09-09 09:24] VITALS: BP 116/72
[2018-09-09] MEDS: METOPROLOL SUCCINATE XL 50 MG TAB PO SCH ×2 (10:00→21:59)
[2018-09-09] MEDS: WARFARIN SODIUM 1 MG TAB PO SCH (17:30)
[2018-09-09 17:49] VITALS: BP 124/64
[2018-09-09 22:08] VITALS: BP 105/59
[2018-09-10 05:19] VITALS: BP 108/69
[2018-09-10 06:44] LABS: INR 2.88 (0.9-1.15)
[2018-09-10 06:55] LABS: BUN/Creatinine Ratio 14.8; Calcium 8.1 mg/dL (8.5-10.1); Potassium 4.4 mmol/L (3.5-5.1)
[2018-09-10] MEDS: SOD CHL 0.45% 1,000 ML IV SCH (08:15)
[2018-09-10 08:20] LABS: Basophils # (auto) 0 uL; Eosinophils # (auto) 0.1 uL; Lymphocytes # (auto) 0.9 uL; Monocytes # (auto) 0.4 uL
[2018-09-10 08:24] LABS: Basophils % (auto) 0.8 % (0.0-2.0); Eosinophils % (auto) 2.6 % (0.0-7.0); Hematocrit 27.1 % (41.0-53.0); Lymphocytes % (auto) 19.3 % (10.0-50.0); Mean Corpuscular Hgb Conc. 33.2 g/dL (32.0-36.0); Mean Corpuscular Volume 96.3 fL (80.0-100.0); Monocytes % (auto) 8.4 % (0.0-12.0); Neutrophils # (auto) 3.2 uL; Neutrophils % (auto) 68.9 % (37.0-80.0); Nucleated Red Blood Cells % 0.1 %; Platelet Count (auto) 62 10^3/uL (140-450); Red Blood Cells 2.81 10^6/uL (4.5-5.90); White Blood Cell 4.7 10^3/uL (4.4-10.8)
[2018-09-10 09:00] VITALS: BP 120/75
[2018-09-10 09:29] LABS: Bilirubin, Total 0.3 mg/dL (0.2-1.0); Total Protein 6.4 g/dL (6.4-8.2)
[2018-09-10] MEDS: FLUoxetine HCL 20 MG CAP PO SCH (09:41)
[2018-09-10] MEDS: TAMSULOSIN HYDROCHLORIDE 0.4 MG CAP PO SCH (09:42)
[2018-09-10] MEDS: DOCUSATE SOD 100 MG CAP PO SCH (09:42)
[2018-09-10] MEDS: FAMOTIDINE 20 MG TAB PO SCH (09:42)
[2018-09-10] MEDS: METOPROLOL SUCCINATE XL 50 MG TAB PO SCH ×2 (09:44→22:22)
[2018-09-10 13:00] VITALS: BP 100/70
[2018-09-10] MEDS ORDERED: EPOETIN ALFA 10,000 UNIT/1 ML VIAL SC ONE (14:15)
[2018-09-10 17:00] VITALS: BP 106/76
[2018-09-10] MEDS: WARFARIN SODIUM 2 MG TAB PO SCH (17:09)
[2018-09-10 22:00] VITALS: BP_SYST 110; BP_SYST 131; BP_DIAS 66; BP_DIAS 78
[2018-09-10 23:05] VITALS: BP 104/79
[2018-09-11 05:00] VITALS: BP 116/77
[2018-09-11 09:00] VITALS: BP 101/51
[2018-09-11 09:56] LABS: Basophils # (auto) 0 uL; Basophils % (auto) 0.5 % (0.0-2.0); Eosinophils # (auto) 0.1 uL; Eosinophils % (auto) 2.3 % (0.0-7.0); Hematocrit 27.8 % (41.0-53.0); Hemoglobin 9.1 g/dL (13.5-17.5); Lymphocytes # (auto) 0.5 uL; Lymphocytes % (auto) 13.6 % (10.0-50.0); Mean Corpuscular Hemoglobin 31.4 pg (28.0-32.0); Mean Corpuscular Hgb Conc. 32.8 g/dL (32.0-36.0); Mean Corpuscular Volume 95.6 fL (80.0-100.0); Monocytes # (auto) 0.3 uL; Monocytes % (auto) 7.9 % (0.0-12.0); Neutrophils % (auto) 75.7 % (37.0-80.0); Nucleated Red Blood Cells % 0.1 %; Platelet Count (auto) 67 10^3/uL (140-450); Red Blood Cells 2.91 10^6/uL (4.5-5.90); Red Cell Distribution Width 15.8 % (11.8-14.3)
[2018-09-11] MEDS: METOPROLOL SUCCINATE XL 50 MG TAB PO SCH ×2 (10:00→21:59)
[2018-09-11 10:14] LABS: INR 2.7 (0.9-1.15); Partial Thromboplastin Time 43.1 sec (23.78-33.04); Prothrombin Time 27.3 sec (9.27-12.13)
[2018-09-11] MEDS: FLUoxetine HCL 20 MG CAP PO SCH (10:53)
[2018-09-11] MEDS: DOCUSATE SOD 100 MG CAP PO SCH (10:53)
[2018-09-11] MEDS: TAMSULOSIN HYDROCHLORIDE 0.4 MG CAP PO SCH (10:54)
[2018-09-11] MEDS: FAMOTIDINE 20 MG TAB PO SCH (10:54)
[2018-09-11 13:00] VITALS: BP 103/73
[2018-09-11 17:00] VITALS: BP 99/63
[2018-09-11] MEDS: WARFARIN SODIUM 2 MG TAB PO SCH (17:30)
[2018-09-11 21:50] VITALS: BP 93/60
[2018-09-12 05:03] VITALS: BP 101/71
[2018-09-12 08:24] LABS: INR 2.59 (0.9-1.15); Prothrombin Time 26.3 sec (9.27-12.13)
[2018-09-12 09:00] VITALS: BP 105/73
[2018-09-12] MEDS: METOPROLOL SUCCINATE XL 50 MG TAB PO SCH (10:00)
[2018-09-12] MEDS: DOCUSATE SOD 100 MG CAP PO SCH (10:33)
[2018-09-12] MEDS: FAMOTIDINE 20 MG TAB PO SCH (10:34)
[2018-09-12] MEDS: TAMSULOSIN HYDROCHLORIDE 0.4 MG CAP PO SCH (10:34)
[2018-09-12] MEDS: FLUoxetine HCL 20 MG CAP PO SCH (10:34)
[2018-09-12 13:00] VITALS: BP 95/66
[2018-09-12 17:00] VITALS: BP 105/69
[2018-09-12] MEDS: WARFARIN SODIUM 2 MG TAB PO SCH (18:48)
== END 2018-09-12 20:10 | disposition home or self-care (01) | DRG 871 ==
LOC: EDUNIT# 21:31 → EDBD 21:31 → ER 21:36 → TELE 21:37 → TELE-CENTR 09-05 03:15
PROVIDERS: ADMIT Internal Medicine Cardiovascular Disease; ATTEND Internal Medicine Cardiovascular Disease
DX: A41.9 Sepsis, unspecified organism (principal); I50.23 Acute on chronic systolic (congestive) heart failure; N17.9 Acute kidney failure, unspecified; I13.0 Hypertensive heart and chronic kidney disease with heart failure and stage 1 through stage 4 chronic kidney disease, or unspecified chronic kidney disease; E87.5 Hyperkalemia; E86.9 Volume depletion, unspecified; I25.10 Atherosclerotic heart disease of native coronary artery without angina pectoris; D64.9 Anemia, unspecified; E86.1 Hypovolemia; F32.9 Major depressive disorder, single episode, unspecified; I25.5 Ischemic cardiomyopathy; I27.20 Pulmonary hypertension, unspecified; I48.91 Unspecified atrial fibrillation; J44.9 Chronic obstructive pulmonary disease, unspecified; Z82.49 Family history of ischemic heart disease and other diseases of the circulatory system; Z79.01 Long term (current) use of anticoagulants; Z79.899 Other long term (current) drug therapy; I25.2 Old myocardial infarction; Z83.3 Family history of diabetes mellitus; Z95.810 Presence of automatic (implantable) cardiac defibrillator
CPT/HCPCS: 36415; 71045; 76775; 80048; 80053; 81001; 82962; 83735; 83880; 84132; 84484; 85025; 85379; 85610; 85730; 87081; 94644; 94761; 96374; 96375; G0378; J0610; J0885; J1815

== ENCOUNTER → 2018-09-24 | Outpatient (CLI) | payer MEDICARE, MEDICAID ==
[~2018-09-24] MED LIST changes: +SODIUM POLYSTYRENE SULF 15 GM POWDER PO ONE; +SODIUM POLYSTYRENE SULF 15GM/60ML SUSP ONE
[2018-09-24 12:44] LABS: BUN/Creatinine Ratio 8.5; Calcium 8.7 mg/dL (8.5-10.1)
[2018-09-24 12:45] LABS: Basophils # (auto) 0 uL; Basophils % (auto) 0.6 % (0.0-2.0); Eosinophils # (auto) 0.1 uL; Eosinophils % (auto) 1.3 % (0.0-7.0); Hematocrit 29.9 % (41.0-53.0); Hemoglobin 9.6 g/dL (13.5-17.5); Lymphocytes # (auto) 0.7 uL; Lymphocytes % (auto) 16.4 % (10.0-50.0); Mean Corpuscular Hemoglobin 32.5 pg (28.0-32.0); Mean Corpuscular Hgb Conc. 32.3 g/dL (32.0-36.0); Mean Corpuscular Volume 100.7 fL (80.0-100.0); Monocytes # (auto) 0.3 uL; Monocytes % (auto) 7.8 % (0.0-12.0); Neutrophils % (auto) 73.9 % (37.0-80.0); Nucleated Red Blood Cells % 0.1 %; Platelet Count (auto) 104 10^3/uL (140-450); Red Blood Cells 2.97 10^6/uL (4.5-5.90); Red Cell Distribution Width 17.3 % (11.8-14.3); White Blood Cell 4.1 10^3/uL (4.4-10.8)
[2018-09-24 14:07] LABS: Potassium 5.6 mmol/L (3.5-5.1)
[2018-09-24 15:15] VITALS: BP 112/72
[2018-09-24 15:30] VITALS: BP 108/74
== END | disposition home or self-care (01) ==
LOC: LAB 10:14
PROVIDERS: ATTEND Internal Medicine Cardiovascular Disease
DX: I12.9 Hypertensive chronic kidney disease with stage 1 through stage 4 chronic kidney disease, or unspecified chronic kidney disease (principal); D63.1 Anemia in chronic kidney disease; N18.9 Chronic kidney disease, unspecified; R79.1 Abnormal coagulation profile
CPT/HCPCS: 36415; 80048; 85025; 85610; G0463

== ENCOUNTER → 2018-09-25 | Outpatient (CLI) | payer MEDICARE, MEDICAID ==
[2018-09-25 08:55] VITALS: BP 103/61
[2018-09-25 09:40] VITALS: BP 102/68
== END | disposition home or self-care (01) ==
LOC: CHF HDHVI 09:02
PROVIDERS: ATTEND Internal Medicine Cardiovascular Disease
DX: E87.6 Hypokalemia (principal); N28.9 Disorder of kidney and ureter, unspecified
CPT/HCPCS: G0463

== ENCOUNTER → 2018-09-26 | Outpatient (CLI) | payer MEDICARE, MEDICAID ==
[~2018-09-26] MED LIST changes: -SODIUM POLYSTYRENE SULF 15 GM POWDER PO ONE; -SODIUM POLYSTYRENE SULF 15GM/60ML SUSP ONE
[2018-09-26 09:00] VITALS: BP 109/72
[2018-09-26 09:13] VITALS: BP 108/65
== END | disposition home or self-care (01) ==
LOC: CHF HDHVI 09:01
PROVIDERS: ATTEND Internal Medicine Cardiovascular Disease
DX: E87.5 Hyperkalemia (principal)
CPT/HCPCS: 36415; 84132

== ENCOUNTER → 2018-09-30 | Outpatient (CLI) | payer MEDICARE, MEDICAID | END | disposition home or self-care (01) | LOC: CHF HDHVI 10:17 | PROVIDERS: ATTEND Internal Medicine Cardiovascular Disease | DX: E87.5 Hyperkalemia (principal) | CPT/HCPCS: 36415; 84132 ==

== ENCOUNTER → 2018-10-06 | Outpatient (CLI) | payer MEDICARE, MEDICAID ==
[2018-10-06 12:31] LABS: Basophils # (auto) 0 uL; Eosinophils # (auto) 0.1 uL; Monocytes # (auto) 0.7 uL
[2018-10-06 12:34] LABS: Basophils % (auto) 1.2 % (0.0-2.0); Eosinophils % (auto) 1.9 % (0.0-7.0); Hematocrit 29.4 % (41.0-53.0); Hemoglobin 9.7 g/dL (13.5-17.5); Lymphocytes # (auto) 0.7 uL; Lymphocytes % (auto) 15.3 % (10.0-50.0); Mean Corpuscular Hemoglobin 34.2 pg (28.0-32.0); Mean Corpuscular Hgb Conc. 33.2 g/dL (32.0-36.0); Mean Corpuscular Volume 103.1 fL (80.0-100.0); Neutrophils # (auto) 2.8 uL; Neutrophils % (auto) 64.6 % (37.0-80.0); Nucleated Red Blood Cells % 0.5 %; Platelet Count (auto) 96 10^3/uL (140-450); Red Blood Cells 2.85 10^6/uL (4.5-5.90); Red Cell Distribution Width 17.4 % (11.8-14.3); White Blood Cell 4.3 10^3/uL (4.4-10.8)
[2018-10-06 12:44] LABS: BUN/Creatinine Ratio 6.2
[2018-10-06 14:06] LABS: Potassium 5.9 mmol/L (3.5-5.1)
== END | disposition home or self-care (01) ==
LOC: LAB 09:10
PROVIDERS: ATTEND Internal Medicine Cardiovascular Disease
DX: D64.9 Anemia, unspecified (principal); E87.6 Hypokalemia; I10 Essential (primary) hypertension
CPT/HCPCS: 36415; 80048; 85025

== ENCOUNTER → 2018-10-08 | Outpatient (CLI) | payer MEDICARE, MEDICAID | END | disposition home or self-care (01) | LOC: LAB 14:34 | PROVIDERS: ATTEND Internal Medicine Cardiovascular Disease | DX: E87.6 Hypokalemia (principal) | CPT/HCPCS: 36415; 84132 ==

== ENCOUNTER → 2018-10-13 | Outpatient (CLI) | payer MEDICARE, MEDICAID ==
[2018-10-13 13:15] LABS: Potassium 4.8 mmol/L (3.5-5.1)
[2018-10-13 13:21] LABS: BUN/Creatinine Ratio 9.9; Calcium 9.2 mg/dL (8.5-10.1)
== END | disposition home or self-care (01) ==
LOC: LAB 08:48
PROVIDERS: ATTEND Internal Medicine Cardiovascular Disease
DX: E87.5 Hyperkalemia (principal); I10 Essential (primary) hypertension; R79.1 Abnormal coagulation profile; Z79.01 Long term (current) use of anticoagulants
CPT/HCPCS: 36415; 80048; 85610

== ENCOUNTER → 2018-10-21 | Outpatient (CLI) | payer MEDICARE, MEDICAID | END | disposition home or self-care (01) | LOC: CHF HDHVI 08:25 | PROVIDERS: ATTEND Internal Medicine Cardiovascular Disease | DX: E87.6 Hypokalemia (principal); R94.4 Abnormal results of kidney function studies | CPT/HCPCS: 36415; 82565; 84132; 84520 ==

== ENCOUNTER → 2018-10-30 | Outpatient (CLI) | payer MEDICARE, MEDICAID ==
[2018-10-30 12:03] LABS: Basophils # (auto) 0 uL; Eosinophils # (auto) 0.1 uL; Eosinophils % (auto) 1.2 % (0.0-7.0); Lymphocytes # (auto) 0.5 uL; Monocytes # (auto) 0.4 uL; Nucleated Red Blood Cells % 0.2 %; Red Blood Cells 2.41 10^6/uL (4.5-5.90); White Blood Cell 4.5 10^3/uL (4.4-10.8)
[2018-10-30 12:05] LABS: Basophils % (auto) 0.5 % (0.0-2.0); Hemoglobin 8.2 g/dL (13.5-17.5); Lymphocytes % (auto) 10.8 % (10.0-50.0); Mean Corpuscular Hemoglobin 34.2 pg (28.0-32.0); Mean Corpuscular Hgb Conc. 32.9 g/dL (32.0-36.0); Mean Corpuscular Volume 103.9 fL (80.0-100.0); Monocytes % (auto) 8.4 % (0.0-12.0); Neutrophils # (auto) 3.6 uL; Neutrophils % (auto) 79.1 % (37.0-80.0); Platelet Count (auto) 90 10^3/uL (140-450); Red Cell Distribution Width 18.6 % (11.8-14.3)
[2018-10-30 12:10] LABS: Calcium 8.3 mg/dL (8.5-10.1); Potassium 3.5 mmol/L (3.5-5.1)
[2018-10-30 12:12] LABS: BUN/Creatinine Ratio 9.9
== END | disposition home or self-care (01) ==
LOC: CHF HDHVI 08:35
PROVIDERS: ATTEND Internal Medicine Cardiovascular Disease
DX: D64.9 Anemia, unspecified (principal); I11.0 Hypertensive heart disease with heart failure; I50.9 Heart failure, unspecified
CPT/HCPCS: 36415; 80048; 85025

== ENCOUNTER → 2018-10-31 | Outpatient (CLI) | payer MEDICARE, MEDICAID | END | disposition home or self-care (01) | LOC: Rad HDHVI 08:11 | PROVIDERS: ATTEND Internal Medicine Cardiovascular Disease | DX: I70.0 Atherosclerosis of aorta (principal); I51.7 Cardiomegaly; R79.1 Abnormal coagulation profile; J98.4 Other disorders of lung | CPT/HCPCS: 71046; 85610 ==

== ENCOUNTER → 2018-11-13 | Outpatient (CLI) | payer MEDICARE, MEDICAID | END | disposition home or self-care (01) | LOC: CHF HDHVI 09:41 | PROVIDERS: ATTEND Internal Medicine Cardiovascular Disease | DX: E87.5 Hyperkalemia (principal); R79.1 Abnormal coagulation profile | CPT/HCPCS: 36415; 84132; 85610 ==

== ENCOUNTER → 2018-11-19 | Outpatient (CLI) | payer MEDICARE, MEDICAID ==
[2018-11-19 16:15] VITALS: BP 112/66
--- NOTE | 2018-11-19 16:15 | NUR ---
CHF PT TO CHF CLINIC FOR BASELINE CARDIODYNAMICS AND MEDICATION MANAGEMENT AND INSTRUCTION.
[2018-11-19 16:35] VITALS: BP 115/73
--- NOTE | 2018-11-19 16:35 | NUR ---
CHF Discharge Instructions See e-MAR for any mediations given with this visit. Patient education given on disease process. Patient verbalized understanding. Previous labs reviewed. Patient discharged in stable condition with after care instructions and follow up appointment.
== END | disposition home or self-care (01) ==
LOC: CHF HDHVI 16:14
PROVIDERS: ATTEND Internal Medicine Cardiovascular Disease
CPT/HCPCS: 93701 ×2; G0463 ×2

== ENCOUNTER → 2018-11-21 | Outpatient (CLI) | payer MEDICARE, MEDICAID ==
[2018-11-21 10:40] VITALS: BP 117/76
[2018-11-21 11:50] VITALS: BP 128/71
--- NOTE | 2018-11-21 11:50 | NUR ---
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 WALKS WITH WALKER AND GAIT STEADY. ALERT AND ORIENTED AND HARD OF HEARING. VS WNL. LABS DRAWN AND SENT. EKG DONE AND REVIEWED. PT DOES HAVE PACEMAKER. 6 M W T DONE AND PT TOLERATED WELL. REVIEWED RESULTS WITH PATIENT. INTRODUCTION TO CHF CLINIC AND CHF MANAGEMENT AT HOME. REVIEWED DIET RESTRICTIONS AND AVOIDING LOW SODIUM FOODS. RECEPTIVE TO TEACHING. REPEAT BACK INSTRUCTIONS VERBALIZED. Discharge Instructions See e-MAR for any mediations given with this visit. Patient education given on disease process. Patient verbalized understanding. Previous labs reviewed. Patient discharged in stable condition with after care instructions and follow up appointment FOR 12/04/18 AT 10 AM
[2018-11-21 15:51] LABS: Eosinophils # (auto) 0.1 uL; Hematocrit 32.6 % (41.0-53.0); Red Cell Distribution Width 17.8 % (11.8-14.3); White Blood Cell 4.7 10^3/uL (4.4-10.8)
[2018-11-21 15:53] LABS: Basophils # (auto) 0.1 uL; Basophils % (auto) 1.4 % (0.0-2.0); Eosinophils % (auto) 2.7 % (0.0-7.0); Hemoglobin 10.5 g/dL (13.5-17.5); Mean Corpuscular Hemoglobin 34.6 pg (28.0-32.0); Mean Corpuscular Hgb Conc. 32.3 g/dL (32.0-36.0); Mean Corpuscular Volume 107.2 fL (80.0-100.0); Monocytes # (auto) 0.4 uL; Monocytes % (auto) 7.8 % (0.0-12.0); Neutrophils # (auto) 3.2 uL; Neutrophils % (auto) 67.1 % (37.0-80.0); Nucleated Red Blood Cells % 0.4 %; Platelet Count (auto) 144 10^3/uL (140-450); Red Blood Cells 3.04 10^6/uL (4.5-5.90)
[2018-11-21 15:59] LABS: Albumin 3.4 g/dL (3.4-5.0); BUN/Creatinine Ratio 12.2; Calcium 9.2 mg/dL (8.5-10.1); Magnesium 2.7 mg/dL (1.6-2.6); Potassium 3.8 mmol/L (3.5-5.1)
[2018-11-21 16:03] LABS: Bilirubin, Total 0.4 mg/dL (0.2-1.0); Total Protein 7.8 g/dL (6.4-8.2)
== END | disposition home or self-care (01) ==
LOC: CHF HDHVI 10:35
PROVIDERS: ATTEND Internal Medicine Cardiovascular Disease
DX: I11.0 Hypertensive heart disease with heart failure (principal); I50.9 Heart failure, unspecified; D64.9 Anemia, unspecified; E03.9 Hypothyroidism, unspecified; E55.9 Vitamin D deficiency, unspecified
CPT/HCPCS: 36415; 80053; 82306; 83735; 83880; 84403; 84443; 85025; 93005; G0463

== ENCOUNTER → 2018-12-04 | Outpatient (CLI) | payer MEDICARE, MEDICAID ==
[~2018-12-04] MED LIST changes: +CYANOCOBALAMIN (B-12) 1000 MCG/1 ML VIAL IM ONE; +CYANOCOBALAMIN (B-12) 1000 MCG/1 ML VIAL ONE
--- NOTE | 2018-12-04 10:00 | NUR ---
PT. TO CHF CLINIC FOR EVAL. AND TX. PT. STATES HE IS FEELING BETTER, WITH WT. STABLE AND DOWN SINCE LAST VISIT. PT. IS SCHEDULED FOR AICD CHECK ON 12/09, WITH APPT. WITH DR. CASTRO ON 12/31. PT. BROUGHT IN DIARY OF HIS WT. FOR LAST 2 WEEKS AND REVIEWED WITH PT. ORDERS RECEIVED AND CARRIED OUT . SEE NSG. ASSESS.
--- NOTE | 2018-12-04 10:30 | NUR ---
LABS: LABS DRAWN AND SENT. INR IS 2.8, WITH INSTRUCTIONS TO PT. TO REMAIN ON 3MG Q HS.
--- NOTE | 2018-12-04 10:39 | NUR ---
MEDS: PT. MEDICATED WITH VIT. B12 PER MD ORDER.
[2018-12-04 10:50] VITALS: BP 107/65
--- NOTE | 2018-12-04 10:50 | NUR ---
Discharge Instructions See e-MAR for any mediations given with this visit. Patient education given on disease process. Patient verbalized understanding. Previous labs reviewed. Patient discharged in stable condition with after care instructions and follow up appointment.
[2018-12-04 13:04] LABS: Potassium 4.6 mmol/L (3.5-5.1)
== END | disposition home or self-care (01) ==
LOC: CHF HDHVI 09:55
PROVIDERS: ATTEND Internal Medicine Cardiovascular Disease
DX: D64.9 Anemia, unspecified (principal); I13.0 Hypertensive heart and chronic kidney disease with heart failure and stage 1 through stage 4 chronic kidney disease, or unspecified chronic kidney disease; E11.22 Type 2 diabetes mellitus with diabetic chronic kidney disease; N18.3 Chronic kidney disease, stage 3 (moderate); I50.42 Chronic combined systolic (congestive) and diastolic (congestive) heart failure; R94.4 Abnormal results of kidney function studies; E87.5 Hyperkalemia; I25.10 Atherosclerotic heart disease of native coronary artery without angina pectoris; I70.0 Atherosclerosis of aorta; I42.9 Cardiomyopathy, unspecified; I48.0 Paroxysmal atrial fibrillation; J44.9 Chronic obstructive pulmonary disease, unspecified; E03.9 Hypothyroidism, unspecified; E78.5 Hyperlipidemia, unspecified; F32.9 Major depressive disorder, single episode, unspecified; I25.2 Old myocardial infarction; F41.9 Anxiety disorder, unspecified; E11.21 Type 2 diabetes mellitus with diabetic nephropathy; K21.9 Gastro-esophageal reflux disease without esophagitis; M48.02 Spinal stenosis, cervical region; Z79.01 Long term (current) use of anticoagulants; Z79.899 Other long term (current) drug therapy; Z95.810 Presence of automatic (implantable) cardiac defibrillator; Z85.828 Personal history of other malignant neoplasm of skin
CPT/HCPCS: 36415; 82565; 84132; 84520; 96372; G0463; J3420

== ENCOUNTER → 2018-12-30 | Outpatient (CLI) | payer MEDICARE, MEDICAID ==
--- NOTE | 2018-12-30 11:00 | NUR ---
CHF PT TO CHF CLINIC C/O ERMIAS VILLA. CHF PATIENT WITH RENAL INSUFFICIENCY.
--- NOTE | 2018-12-30 11:15 | NUR ---
CHF Clinic Provider Clinic Provider DR. CASTRO, with new orders received and carried out. CARDIODYNAMICS. REVIEWED MEDICATION REGIMEN . DRAW CBC,BUN/CREAT/K STAT AND PTINR . ADMINISTER VIT B12 1000MCG IM per MD order.
[2018-12-30 13:00] LABS: Basophils # (auto) 0 uL; Basophils % (auto) 0.2 % (0.0-2.0); Eosinophils # (auto) 0 uL; Eosinophils % (auto) 0.1 % (0.0-7.0); Hematocrit 34.3 % (41.0-53.0); Hemoglobin 11.2 g/dL (13.5-17.5); Lymphocytes # (auto) 0.4 uL; Lymphocytes % (auto) 3.4 % (10.0-50.0); Mean Corpuscular Hemoglobin 32.5 pg (28.0-32.0); Mean Corpuscular Hgb Conc. 32.8 g/dL (32.0-36.0); Monocytes # (auto) 0.6 uL; Monocytes % (auto) 5.6 % (0.0-12.0); Neutrophils # (auto) 9.4 uL; Neutrophils % (auto) 90.7 % (37.0-80.0); Nucleated Red Blood Cells % 0.1 %; Platelet Count (auto) 105 10^3/uL (140-450); Red Blood Cells 3.46 10^6/uL (4.5-5.90); Red Cell Distribution Width 16.3 % (11.8-14.3); White Blood Cell 10.4 10^3/uL (4.4-10.8)
[2018-12-30 13:13] LABS: Potassium 4.9 mmol/L (3.5-5.1)
[2018-12-30 13:25] VITALS: BP 114/68
--- NOTE | 2018-12-30 13:25 | NUR ---
CHF Discharge Instructions See e-MAR for any mediations given with this visit.COUMADIN TONIGHT 1.5 MG , THAN RESUME 3MG Q PM THEREAFTER PER MD CASTRO ORDER. Patient education given on disease process. Patient verbalized understanding. Previous labs reviewed. Patient discharged in stable condition with after care instructions and follow up appointment. FOLLOW UP WITH DR. CASTRO SCHEDULED. PT VERB UNDERSTANDING.
== END | disposition home or self-care (01) ==
LOC: CHF HDHVI 10:40
PROVIDERS: ATTEND Internal Medicine Cardiovascular Disease
DX: I13.0 Hypertensive heart and chronic kidney disease with heart failure and stage 1 through stage 4 chronic kidney disease, or unspecified chronic kidney disease (principal); E11.22 Type 2 diabetes mellitus with diabetic chronic kidney disease; I50.42 Chronic combined systolic (congestive) and diastolic (congestive) heart failure; N18.3 Chronic kidney disease, stage 3 (moderate); E87.6 Hypokalemia; R94.4 Abnormal results of kidney function studies; D64.9 Anemia, unspecified; N28.9 Disorder of kidney and ureter, unspecified; N40.0 Benign prostatic hyperplasia without lower urinary tract symptoms; I25.2 Old myocardial infarction; I48.0 Paroxysmal atrial fibrillation; I42.9 Cardiomyopathy, unspecified; J44.9 Chronic obstructive pulmonary disease, unspecified; K21.9 Gastro-esophageal reflux disease without esophagitis; E78.5 Hyperlipidemia, unspecified; E03.9 Hypothyroidism, unspecified; F41.9 Anxiety disorder, unspecified; F32.9 Major depressive disorder, single episode, unspecified; M10.9 Gout, unspecified; M48.00 Spinal stenosis, site unspecified; Z79.01 Long term (current) use of anticoagulants; Z85.828 Personal history of other malignant neoplasm of skin; Z95.810 Presence of automatic (implantable) cardiac defibrillator
CPT/HCPCS: 36415; 82565; 84132; 84520; 85025; 85610; 93701; 96372; G0463; J3420

== ENCOUNTER → 2019-01-14 | Outpatient (CLI) | payer MEDICARE, MEDICAID ==
[~2019-01-14] MED LIST changes: -CYANOCOBALAMIN (B-12) 1000 MCG/1 ML VIAL IM ONE; -CYANOCOBALAMIN (B-12) 1000 MCG/1 ML VIAL ONE
--- NOTE | 2019-01-14 11:50 | NUR ---
MEDS: ROCEPHIN 1 GM IVPB STARTED PER MD ORDER. PT. TOLERATED VANCO WELL. Addendum: 01/14/19 at 1238 by Elder Toribio RN DE CANCEL ABOVE NURSING NOTE. WRONG PATIENT.
[2019-01-14 12:13] LABS: Urine Blood Negative /uL (Negative); Urine Specific Gravity 1.007 (1.001-1.035)
== END | disposition home or self-care (01) ==
LOC: LAB 08:30
PROVIDERS: ATTEND Internal Medicine Cardiovascular Disease
DX: N39.0 Urinary tract infection, site not specified (principal)
CPT/HCPCS: 81003; 87086

== ENCOUNTER → 2019-02-05 | Outpatient (CLI) | payer MEDICARE, MEDICAID ==
[2019-02-05 10:45] VITALS: BP 99/57
--- NOTE | 2019-02-05 10:45 | NUR ---
PT. TO CHF CLINIC FOR MONTHLY EVAL. PT. WITH C/O LEFT KNEE PAIN AND SWELLING X 24 HOURS, WITH SEVERE PAIN WITH WT. BEARING. HX. OF PREVIOUS SURGERY TOTAL KNEE REPLACEMENT SEVERAL YEARS AGO. AOX4. PT. AND CAREGIVER STAES HE TOOK HIS LAST NORCO AT 0800 THIS AM, WITH SOME IMPROVEMENT IN PAIN. LEFT KNEE SWOLLEN NOT HOT TO TOUCH. N/V STATUS DISTALLY WNL WITH NO PERIPHERAL EDEMA NOTED. PT. STATES IMPROVEMENT WITH LEG SUPPORTED ON PILLOW. ORDERS RECEIVED AND CARRIED OUT.
--- NOTE | 2019-02-05 11:00 | NUR ---
LABS DRAWN AND SENT.
--- NOTE | 2019-02-05 11:30 | NUR ---
GUSTAVO WRAP APPLIED TO LEFT KNEE FOR SUPPORT. PT. INSTRUCTED TO HOLD COUMADIN TONIGHT AFTER INR WAS 3.8.PT. STATES KNEE FEELS BETTER WITH GUSTAVO SUPPORT.
[2019-02-05 11:35] VITALS: BP 104/60
--- NOTE | 2019-02-05 11:35 | NUR ---
Discharge Instructions See e-MAR for any mediations given with this visit. Patient education given on disease process. Patient verbalized understanding. Previous labs reviewed. Patient discharged in stable condition with after care instructions and follow up appointment.PT. TO RTC IN AM AT 0930 FOR XRAY, LAB AND APPT. WITH DR. CASTRO FOR LEFT KNEE. PT. GIVEN RX FOR NORCO 10/325MG TABS WITH INSTRUCTIONS BY DR. CASTRO 1 TAB Q 8 HRS PRN PAIN., QUANTITY 30 TABS. ASSISTED TO POV WITH STAFF FOR TRANSFER HOME.
[2019-02-05 12:26] LABS: Basophils # (auto) 0 uL; Basophils % (auto) 0.6 % (0.0-2.0); Eosinophils # (auto) 0.1 uL; Eosinophils % (auto) 1.2 % (0.0-7.0); Hematocrit 31.3 % (41.0-53.0); Hemoglobin 10.3 g/dL (13.5-17.5); Lymphocytes # (auto) 0.7 uL; Lymphocytes % (auto) 13.4 % (10.0-50.0); Mean Corpuscular Hemoglobin 32.2 pg (28.0-32.0); Mean Corpuscular Hgb Conc. 33.1 g/dL (32.0-36.0); Mean Corpuscular Volume 97.6 fL (80.0-100.0); Monocytes # (auto) 0.5 uL; Monocytes % (auto) 8.9 % (0.0-12.0); Neutrophils # (auto) 3.8 uL; Neutrophils % (auto) 75.9 % (37.0-80.0); Platelet Count (auto) 106 10^3/uL (140-450); Red Blood Cells 3.21 10^6/uL (4.5-5.90); White Blood Cell 5.1 10^3/uL (4.4-10.8)
[2019-02-05 12:44] LABS: BUN/Creatinine Ratio 12.1; Calcium 9.1 mg/dL (8.5-10.1); Magnesium 2.4 mg/dL (1.6-2.6); Potassium 4.9 mmol/L (3.5-5.1)
[2019-02-05 12:49] LABS: Uric Acid 4.9 mg/dL (3.5-7.2)
== END | disposition home or self-care (01) ==
LOC: CHF HDHVI 10:41
PROVIDERS: ATTEND Internal Medicine Cardiovascular Disease
DX: I11.0 Hypertensive heart disease with heart failure (principal); I50.9 Heart failure, unspecified; M10.9 Gout, unspecified; D64.9 Anemia, unspecified; E83.40 Disorders of magnesium metabolism, unspecified; R70.0 Elevated erythrocyte sedimentation rate; I25.10 Atherosclerotic heart disease of native coronary artery without angina pectoris; M25.562 Pain in left knee
CPT/HCPCS: 36415; 80048; 83735; 84550; 85025; 85610; 85652; G0463

== ENCOUNTER → 2019-02-06 | Outpatient (CLI) | payer MEDICARE, MEDICAID ==
[~2019-02-06] MED LIST changes: +CYANOCOBALAMIN (B-12) 1000 MCG/1 ML VIAL IM ONE; +CYANOCOBALAMIN (B-12) 1000 MCG/1 ML VIAL ONE
[2019-02-06 09:16] VITALS: BP 110/62
--- NOTE | 2019-02-06 09:25 | NUR ---
IN TO CLINIC WITH CAREGIVER WITH MULTIPLE ISSUES TO BE ADDRESSED. KNEE X RAY TO BE DONE. REPEAT INR RESULTS. PT TO BE SEEN BY .
--- NOTE | 2019-02-06 10:16 | NUR ---
INR REPEATED X 2 WITH SAME RESULTS, INR 5.3. KNEE XRAY DONE. POSITIONED FOR COMFORT IN RECLINER WITH CAREGIVER IN ATTENDANCE.
[2019-02-06 10:20] VITALS: BP 103/63
--- NOTE | 2019-02-06 12:37 | NUR ---
PT SAW PHYSICIAN IN BACK OFFICE FOR NEEDLE ASPIRATION OF LEFT KNEE. TOLERATED WELL. PT REPORTED IMMEDIATE IMPROVEMENT IN LEFT KNEE MOVEMENT AND WEIGHT BEARING. DISCHARGED TO CAREGIVER IN NO DISTRESS OR DISCOMFORT AT TIME OF DISCHARGE. Discharge Instructions See e-MAR for any mediations given with this visit. Patient education given on disease process. Patient verbalized understanding. Previous labs reviewed. Patient discharged in stable condition with after care instructions and follow up appointment FOR 02/09/[address] CASTRO MEDICATION ADMINISTRATION VIT B12 1000 MCG IM TO LEFT DELTOID
== END | disposition home or self-care (01) ==
LOC: CHF HDHVI 09:21
PROVIDERS: ATTEND Internal Medicine Cardiovascular Disease
DX: I13.0 Hypertensive heart and chronic kidney disease with heart failure and stage 1 through stage 4 chronic kidney disease, or unspecified chronic kidney disease (principal); E11.22 Type 2 diabetes mellitus with diabetic chronic kidney disease; I50.42 Chronic combined systolic (congestive) and diastolic (congestive) heart failure; N18.3 Chronic kidney disease, stage 3 (moderate); R53.83 Other fatigue; I25.10 Atherosclerotic heart disease of native coronary artery without angina pectoris; I48.0 Paroxysmal atrial fibrillation; I25.2 Old myocardial infarction; J44.9 Chronic obstructive pulmonary disease, unspecified; K21.9 Gastro-esophageal reflux disease without esophagitis; M48.00 Spinal stenosis, site unspecified; F32.9 Major depressive disorder, single episode, unspecified; E03.9 Hypothyroidism, unspecified; E78.5 Hyperlipidemia, unspecified; F41.9 Anxiety disorder, unspecified; M10.9 Gout, unspecified; M25.562 Pain in left knee; R79.1 Abnormal coagulation profile; M25.462 Effusion, left knee; Z95.810 Presence of automatic (implantable) cardiac defibrillator; Z85.828 Personal history of other malignant neoplasm of skin; Z79.01 Long term (current) use of anticoagulants; Z87.440 Personal history of urinary (tract) infections; W19.XXXA Unspecified fall, initial encounter; X58.XXXA Exposure to other specified factors, initial encounter; Y92.89 Other specified places as the place of occurrence of the external cause
CPT/HCPCS: 73562; 96372; G0463; J3420

== ENCOUNTER → 2019-02-09 | Outpatient (CLI) | payer MEDICARE, MEDICAID ==
[~2019-02-09] MED LIST changes: -CYANOCOBALAMIN (B-12) 1000 MCG/1 ML VIAL IM ONE; -CYANOCOBALAMIN (B-12) 1000 MCG/1 ML VIAL ONE
== END | disposition home or self-care (01) ==
LOC: LAB 10:38
PROVIDERS: ATTEND Internal Medicine Cardiovascular Disease
DX: R79.1 Abnormal coagulation profile (principal)
CPT/HCPCS: 85610

== ENCOUNTER → 2019-03-10 | Outpatient (CLI) | payer MEDICARE, MEDICAID | END | disposition home or self-care (01) | LOC: Rad HDHVI 09:36 | PROVIDERS: ATTEND Internal Medicine Cardiovascular Disease | DX: I08.3 Combined rheumatic disorders of mitral, aortic and tricuspid valves (principal); R79.1 Abnormal coagulation profile; J44.9 Chronic obstructive pulmonary disease, unspecified; I50.33 Acute on chronic diastolic (congestive) heart failure | CPT/HCPCS: 85610; 93306 ==

== ENCOUNTER → 2019-03-30 | Outpatient (CLI) | payer MEDICARE, MEDICAID | END | disposition home or self-care (01) | LOC: LAB 15:49 | PROVIDERS: ATTEND Internal Medicine Cardiovascular Disease | DX: R79.1 Abnormal coagulation profile (principal) | CPT/HCPCS: 85610 ==

== ENCOUNTER → 2019-04-07 | Outpatient (CLI) | payer MEDICARE, MEDICAID | END | disposition home or self-care (01) | LOC: Rad HDHVI 09:54 | PROVIDERS: ATTEND Internal Medicine Cardiovascular Disease | DX: M25.562 Pain in left knee (principal); R79.1 Abnormal coagulation profile; I70.0 Atherosclerosis of aorta | CPT/HCPCS: 73700; 85610 ==

== ENCOUNTER → 2019-04-13 | Outpatient (CLI) | payer MEDICARE, MEDICAID | END | disposition home or self-care (01) | LOC: LAB 08:46 | PROVIDERS: ATTEND Internal Medicine Cardiovascular Disease | DX: R79.1 Abnormal coagulation profile (principal) | CPT/HCPCS: 85610 ==

== ENCOUNTER → 2019-05-05 | Outpatient (CLI) | payer MEDICARE, MEDICAID | END | disposition home or self-care (01) | LOC: LAB 10:45 | PROVIDERS: ATTEND Internal Medicine Cardiovascular Disease | DX: R79.1 Abnormal coagulation profile (principal) | CPT/HCPCS: 85610 ==

== ENCOUNTER → 2019-05-11 | Outpatient (CLI) | payer MEDICARE, MEDICAID ==
[~2019-05-11] MED LIST changes: +FUROSEMIDE 20 MG TAB PO ONE; +FUROSEMIDE 40 MG TAB ONE; +POTASSIUM CHL 10 Meq TABLET PO ONE
--- NOTE | 2019-05-11 09:15 | NUR ---
PT. TO CHF CLINIC WITH DAUGHTER WITH C/O NOT BEING ABLE TO URINATE BUT SMALL AMOUNTS. ABD SOFT AND NONTENDER TO PALPATION. ORDERS FOR BLADDER SCAN OBTAINED AND CARRIED OUT . SEE NSG ASSESS.
--- NOTE | 2019-05-11 09:45 | NUR ---
PT. TO AND FROM BACK OFFICE FOR BLADDER SCAN. RESULTS SHOW NO URINE IN BLADDER WITH REPEAT PROCEDURE BY Cj. PT. TOLERATED PROCEDURE WELL, STATING HE DOES NOT HAVE URGE TO URINATE. NEW ORDERS RECEIVED AND CARRIED OUT.
--- NOTE | 2019-05-11 10:15 | NUR ---
LABS DRAWN AND SENT.
--- NOTE | 2019-05-11 10:22 | NUR ---
MEDS: PT. MEDICATED WITH LASIX 40MG PO AND KDUR 10 MEQ PO PER MD ORDER.
--- NOTE | 2019-05-11 10:30 | NUR ---
LAB: INR 3.5 ON 3MG COUMADIN . PT. AND DAUGHTER INSTRUCTED TO CONTINUE SAME DOSE.
[2019-05-11 10:40] VITALS: BP 91/66
--- NOTE | 2019-05-11 10:40 | NUR ---
Discharge Instructions See e-MAR for any mediations given with this visit. Patient education given on disease process. Patient verbalized understanding. Previous labs reviewed. Patient discharged in stable condition with after care instructions and follow up appointment. PT. TO RTC IN AM FOR EVAL. DAUGHTER TO CALL THIS RN IF ANY DIFFICULTY TODAY.
[2019-05-11 11:01] LABS: Basophils # (auto) 0 uL; Basophils % (auto) 0.6 % (0.0-2.0); Eosinophils # (auto) 0.1 uL; Eosinophils % (auto) 1.1 % (0.0-7.0); Hematocrit 34.2 % (41.0-53.0); Hemoglobin 11.6 g/dL (13.5-17.5); Lymphocytes # (auto) 1.2 uL; Mean Corpuscular Hgb Conc. 33.9 g/dL (32.0-36.0); Mean Corpuscular Volume 97.6 fL (80.0-100.0); Monocytes # (auto) 0.5 uL; Monocytes % (auto) 7.3 % (0.0-12.0); Neutrophils # (auto) 4.7 uL; Nucleated Red Blood Cells % 0.2 %; Platelet Count (auto) 112 10^3/uL (140-450); White Blood Cell 6.5 10^3/uL (4.4-10.8)
[2019-05-11 11:03] LABS: Potassium 3.7 mmol/L (3.5-5.1)
[2019-05-11 11:10] LABS: Albumin 3.9 g/dL (3.4-5.0); BUN/Creatinine Ratio 15.8; Bilirubin, Total 0.6 mg/dL (0.2-1.0); Total Protein 7.8 g/dL (6.4-8.2)
== END | disposition home or self-care (01) ==
LOC: CHF HDHVI 09:19
PROVIDERS: ATTEND Internal Medicine Cardiovascular Disease
DX: D64.9 Anemia, unspecified (principal); R70.0 Elevated erythrocyte sedimentation rate; I11.0 Hypertensive heart disease with heart failure; I50.9 Heart failure, unspecified
CPT/HCPCS: 36415; 80053; 85025; 85610; 85652; G0463

== ENCOUNTER → 2019-05-12 | Outpatient (CLI) | payer MEDICARE, MEDICAID ==
[~2019-05-12] MED LIST changes: +CYANOCOBALAMIN (B-12) 1000 MCG/1 ML VIAL IM ONE; +CYANOCOBALAMIN (B-12) 1000 MCG/1 ML VIAL ONE; -FUROSEMIDE 20 MG TAB PO ONE; -FUROSEMIDE 40 MG TAB ONE
[2019-05-12 10:41] VITALS: BP_SYST 117; BP_SYST 98; BP_DIAS 58; BP_DIAS 77
--- NOTE | 2019-05-12 10:41 | NUR ---
IN FOR POST LAB AND TREATMENT EVALUATION. CAREGIVER IN ATTENDANCE. WITHOUT DISTRESS OR DISCOMFORT. CLINIC PROVIDER CONSULTED AND ORDERS RECIEVED AND CARRIED OUT. DISCHARGED TO CAREGIVER WITHOUT DISTRESS.
== END | disposition home or self-care (01) ==
LOC: CHF HDHVI 09:01
PROVIDERS: ATTEND Internal Medicine Cardiovascular Disease
DX: I13.0 Hypertensive heart and chronic kidney disease with heart failure and stage 1 through stage 4 chronic kidney disease, or unspecified chronic kidney disease (principal); E11.22 Type 2 diabetes mellitus with diabetic chronic kidney disease; I50.42 Chronic combined systolic (congestive) and diastolic (congestive) heart failure; N18.4 Chronic kidney disease, stage 4 (severe); I25.10 Atherosclerotic heart disease of native coronary artery without angina pectoris; I27.21 Secondary pulmonary arterial hypertension; J96.10 Chronic respiratory failure, unspecified whether with hypoxia or hypercapnia; D64.9 Anemia, unspecified; E78.00 Pure hypercholesterolemia, unspecified; R53.83 Other fatigue; J44.9 Chronic obstructive pulmonary disease, unspecified; E87.5 Hyperkalemia; F32.9 Major depressive disorder, single episode, unspecified; Z79.899 Other long term (current) drug therapy; Z95.5 Presence of coronary angioplasty implant and graft
CPT/HCPCS: 96372; G0463; J3420

== ENCOUNTER → 2019-05-13 | Outpatient (CLI) | payer MEDICARE, MEDICAID ==
[~2019-05-13] MED LIST changes: -CYANOCOBALAMIN (B-12) 1000 MCG/1 ML VIAL IM ONE; -CYANOCOBALAMIN (B-12) 1000 MCG/1 ML VIAL ONE; +MAGNESIUM CITRATE SOLUTION 300 ML BTL ONE; +MAGNESIUM CITRATE SOLUTION 300 ML BTL PO ONE; -POTASSIUM CHL 10 Meq TABLET PO ONE
[2019-05-13 08:00] VITALS: BP 109/70
--- NOTE | 2019-05-13 09:36 | NUR ---
DISCHARGED TO HOME CARE AND CAREGIVER IN NO DISTRESS OR DISCOMFORT. VS WNL. Discharge Instructions See e-MAR for any mediations given with this visit. Patient education given on disease process. Patient verbalized understanding. Previous labs reviewed. Patient discharged in stable condition with after care instructions and follow up appointment.
[2019-05-13 09:40] VITALS: BP 105/78
[2019-05-13 12:42] LABS: Basophils # (auto) 0 uL; Basophils % (auto) 0.8 % (0.0-2.0); Eosinophils # (auto) 0.1 uL; Eosinophils % (auto) 1.3 % (0.0-7.0); Hematocrit 34.9 % (41.0-53.0); Hemoglobin 11.7 g/dL (13.5-17.5); Lymphocytes # (auto) 1.1 uL; Lymphocytes % (auto) 19.3 % (10.0-50.0); Mean Corpuscular Hemoglobin 32.7 pg (28.0-32.0); Mean Corpuscular Hgb Conc. 33.4 g/dL (32.0-36.0); Monocytes # (auto) 0.4 uL; Monocytes % (auto) 7.3 % (0.0-12.0); Neutrophils # (auto) 3.9 uL; Neutrophils % (auto) 71.3 % (37.0-80.0); Nucleated Red Blood Cells % 0.1 %; Platelet Count (auto) 114 10^3/uL (140-450); Red Blood Cells 3.56 10^6/uL (4.5-5.90); Red Cell Distribution Width 16.3 % (11.8-14.3); White Blood Cell 5.5 10^3/uL (4.4-10.8)
[2019-05-13 12:52] LABS: Urine Blood Negative /uL (Negative); Urine Specific Gravity 1.011 (1.001-1.035)
[2019-05-13 13:23] LABS: Albumin 3.8 g/dL (3.4-5.0); Bilirubin, Total 0.5 mg/dL (0.2-1.0); Calcium 9.7 mg/dL (8.5-10.1); Total Protein 8.1 g/dL (6.4-8.2)
== END | disposition home or self-care (01) ==
LOC: CHF HDHVI 08:03
PROVIDERS: ATTEND Internal Medicine Cardiovascular Disease
DX: I70.0 Atherosclerosis of aorta (principal); I13.0 Hypertensive heart and chronic kidney disease with heart failure and stage 1 through stage 4 chronic kidney disease, or unspecified chronic kidney disease; I50.43 Acute on chronic combined systolic (congestive) and diastolic (congestive) heart failure; N18.9 Chronic kidney disease, unspecified; E78.5 Hyperlipidemia, unspecified; C61 Malignant neoplasm of prostate; R91.8 Other nonspecific abnormal finding of lung field; D64.9 Anemia, unspecified; R53.83 Other fatigue; Z79.899 Other long term (current) drug therapy
CPT/HCPCS: 36415; 71046; 80053; 80061; 81003; 82306; 83036; 83880; 84153; 84403; 85025; G0463

== ENCOUNTER → 2019-06-22 | Outpatient (CLI) | payer MEDICARE, MEDICAID ==
[~2019-06-22] MED LIST changes: +ENAL20TA OR; -ENAL20TA70 OR; -MAGNESIUM CITRATE SOLUTION 300 ML BTL ONE; -MAGNESIUM CITRATE SOLUTION 300 ML BTL PO ONE; +WARF2TAB PO; -WARF2TAB55 PO
[2019-06-22 12:09] LABS: Eosinophils # (auto) 0.1 uL; Eosinophils % (auto) 2.4 % (0.0-7.0)
[2019-06-22 12:16] LABS: Basophils # (auto) 0 uL; Basophils % (auto) 0.9 % (0.0-2.0); Hematocrit 31.9 % (41.0-53.0); Hemoglobin 10.4 g/dL (13.5-17.5); Lymphocytes # (auto) 0.9 uL; Lymphocytes % (auto) 16.3 % (10.0-50.0); Mean Corpuscular Hemoglobin 33.6 pg (28.0-32.0); Mean Corpuscular Hgb Conc. 32.6 g/dL (32.0-36.0); Monocytes # (auto) 0.4 uL; Monocytes % (auto) 8.3 % (0.0-12.0); Neutrophils # (auto) 3.9 uL; Neutrophils % (auto) 72.1 % (37.0-80.0); Nucleated Red Blood Cells % 0.1 %; Platelet Count (auto) 89 10^3/uL (140-450); Red Cell Distribution Width 17.2 % (11.8-14.3); White Blood Cell 5.3 10^3/uL (4.4-10.8)
[2019-06-22 12:19] LABS: Urine Bacteria NONE SEEN /hpf (None Seen); Urine Blood Negative /uL (Negative); Urine Hyaline Cast FEW /lpf (0 - 2); Urine Mucus FEW (None Seen); Urine Specific Gravity 1.015 (1.001-1.035); Urine WBC 2 /hpf (0 - 3)
[2019-06-22 12:23] LABS: % Iron Saturation 32.1 % (20-55)
[2019-06-22 12:25] LABS: BUN/Creatinine Ratio 13.3; Calcium 9.2 mg/dL (8.5-10.1); Magnesium 2.4 mg/dL (1.6-2.6); Phosphorus 3.2 mg/dL (2.5-4.90); Potassium 4.5 mmol/L (3.5-5.1); Uric Acid 4.9 mg/dL (3.5-7.2)
[2019-06-22 13:02] LABS: Micro Albumin 8.68 mg/L (0-30.0)
[2019-06-22 13:21] LABS: Protein, Urine 20.5 mg/dL (0.0-11.9)
== END | disposition home or self-care (01) ==
LOC: CHF HDHVI 08:01
PROVIDERS: ATTEND Internal Medicine Cardiovascular Disease
DX: I13.0 Hypertensive heart and chronic kidney disease with heart failure and stage 1 through stage 4 chronic kidney disease, or unspecified chronic kidney disease (principal); I50.23 Acute on chronic systolic (congestive) heart failure; N18.4 Chronic kidney disease, stage 4 (severe); D63.1 Anemia in chronic kidney disease; E87.5 Hyperkalemia; M10.9 Gout, unspecified; N39.0 Urinary tract infection, site not specified; K90.9 Intestinal malabsorption, unspecified; E55.9 Vitamin D deficiency, unspecified; R79.1 Abnormal coagulation profile
CPT/HCPCS: 36415; 80048; 81001; 82043; 82306; 82570; 82728; 83540; 83550; 83735; 83880; 83970; 84100; 84156; 84550; 85025; 85610

== ENCOUNTER → 2019-06-25 | Outpatient (CLI) | payer MEDICARE, MEDICAID ==
[~2019-06-25] VITALS: Ht 30.5 cm; Wt 87.2 kg
[~2019-06-25] MED LIST changes: +CYANOCOBALAMIN (B-12) 1000 MCG/1 ML VIAL IM ONE; +CYANOCOBALAMIN (B-12) 1000 MCG/1 ML VIAL ONE
[2019-06-25 09:40] VITALS: BP 102/66
--- NOTE | 2019-06-25 09:40 | NUR ---
CHF CLINIC Discharge Instructions See e-MAR for any mediations given with this visit. Patient education given on disease process. Patient verbalized understanding. Previous labs reviewed. Patient discharged in stable condition with after care instructions and follow up appointment. NOTE B12 IM L DELTOID ADMIN BY WILLOW MEDINA INR 2.7 ON 3MG DAILY, PATIENT WILL REMAIN TAKING CURRENT DOSE.
== END | disposition home or self-care (01) ==
LOC: CHF HDHVI 09:10
PROVIDERS: ATTEND Internal Medicine Cardiovascular Disease
DX: I13.0 Hypertensive heart and chronic kidney disease with heart failure and stage 1 through stage 4 chronic kidney disease, or unspecified chronic kidney disease (principal); E11.22 Type 2 diabetes mellitus with diabetic chronic kidney disease; I50.42 Chronic combined systolic (congestive) and diastolic (congestive) heart failure; N18.4 Chronic kidney disease, stage 4 (severe); I48.91 Unspecified atrial fibrillation; E78.5 Hyperlipidemia, unspecified; R79.1 Abnormal coagulation profile; J44.9 Chronic obstructive pulmonary disease, unspecified; I25.2 Old myocardial infarction; I27.21 Secondary pulmonary arterial hypertension; E78.00 Pure hypercholesterolemia, unspecified; M10.9 Gout, unspecified; F32.9 Major depressive disorder, single episode, unspecified; Z79.899 Other long term (current) drug therapy; Z87.01 Personal history of pneumonia (recurrent); Z96.641 Presence of right artificial hip joint; Z95.5 Presence of coronary angioplasty implant and graft; Z85.46 Personal history of malignant neoplasm of prostate; Z99.81 Dependence on supplemental oxygen
CPT/HCPCS: 85610; 96372; G0463; J3420

== ENCOUNTER → 2019-07-06 | Outpatient (CLI) | payer MEDICARE, MEDICAID ==
[2019-07-06 10:45] VITALS: BP 104/59
[2019-07-06 11:22] VITALS: BP 93/56
--- NOTE | 2019-07-06 11:22 | NUR ---
IN TO CLINIC WITH CAREGIVER IN ATTENDANCE. REPORTS FEELING WELL WITH GOOD APPETITE. VS WNL. GAIT STEADY WITH USE OF WALKER. RECENT LABS DONE AND LABS REVIEWED WITH PATIENT. QUESTIONS DENIED AFTER REVIEW. INR RESULTS DONE AND TO REMAIN TAKING 3 MG DAILY . DISCHARGED TO CARE OF CAREGIVER IN NO DISTRESS OR DISCOMFORT.
== END | disposition home or self-care (01) ==
LOC: CHF HDHVI 10:52
PROVIDERS: ATTEND Internal Medicine Cardiovascular Disease
DX: I13.0 Hypertensive heart and chronic kidney disease with heart failure and stage 1 through stage 4 chronic kidney disease, or unspecified chronic kidney disease (principal); E11.22 Type 2 diabetes mellitus with diabetic chronic kidney disease; N18.4 Chronic kidney disease, stage 4 (severe); I50.42 Chronic combined systolic (congestive) and diastolic (congestive) heart failure; I25.10 Atherosclerotic heart disease of native coronary artery without angina pectoris; R53.83 Other fatigue; D64.9 Anemia, unspecified; I27.21 Secondary pulmonary arterial hypertension; I25.2 Old myocardial infarction; I48.91 Unspecified atrial fibrillation; J44.9 Chronic obstructive pulmonary disease, unspecified; E78.5 Hyperlipidemia, unspecified; F32.9 Major depressive disorder, single episode, unspecified; E78.00 Pure hypercholesterolemia, unspecified; Z79.899 Other long term (current) drug therapy; Z85.46 Personal history of malignant neoplasm of prostate; Z95.5 Presence of coronary angioplasty implant and graft
CPT/HCPCS: 85610; 96372; G0463; J3420

== ENCOUNTER → 2019-07-27 | Outpatient (CLI) | payer MEDICARE, MEDICAID ==
[~2019-07-27] MED LIST changes: -CYANOCOBALAMIN (B-12) 1000 MCG/1 ML VIAL IM ONE; -CYANOCOBALAMIN (B-12) 1000 MCG/1 ML VIAL ONE
== END | disposition home or self-care (01) ==
LOC: CHF HDHVI 14:53
PROVIDERS: ATTEND Internal Medicine Cardiovascular Disease
DX: I25.2 Old myocardial infarction (principal); R79.1 Abnormal coagulation profile; Z79.899 Other long term (current) drug therapy
CPT/HCPCS: 85610

== ENCOUNTER → 2019-09-07 | Outpatient (CLI) | payer MEDICARE, MEDICAID | END | disposition home or self-care (01) | LOC: LAB 14:47 | PROVIDERS: ATTEND Internal Medicine Cardiovascular Disease | DX: R79.1 Abnormal coagulation profile (principal) | CPT/HCPCS: 85610 ==

== ENCOUNTER → 2019-10-05 | Outpatient (CLI) | payer MEDICARE, MEDICAID | END | disposition home or self-care (01) | LOC: LAB 08:15 | PROVIDERS: ATTEND Internal Medicine Cardiovascular Disease | DX: R79.1 Abnormal coagulation profile (principal) | CPT/HCPCS: 85610 ==

== ENCOUNTER → 2019-10-21 | Outpatient (CLI) | payer MEDICARE, MEDICAID ==
[~2019-10-21] MED LIST changes: -AZIT250T7 PO; +AZIT250T9 PO; +BACITRACIN TOP OINT 1 UD PKG TOP ONE; +CYANOCOBALAMIN (B-12) 1000 MCG/1 ML VIAL IM ONE; +CYANOCOBALAMIN (B-12) 1000 MCG/1 ML VIAL ONE; +MAGN400T40 OR; -MAGN400T5 OR; -METO25TA62 PO; +METO25TA93 PO
[2019-10-21 10:03] VITALS: BP 128/74
[2019-10-21 10:45] VITALS: BP 102/69
--- NOTE | 2019-10-21 10:45 | NUR ---
CHF CLINIC Discharge Instructions See e-MAR for any mediations given with this visit. Patient education given on disease process. Patient verbalized understanding. Previous labs reviewed. Patient discharged in stable condition with after care instructions and follow up appointment. NOTE B12 IM L DELTOID ADMIN BY KAREN MEDINA WOUND CLEANSED AND APPLIED STERI STRIPS AND BACITRACIN, NON ADHERENT DRESSING AND TEGADERM APPLIED.
== END | disposition home or self-care (01) ==
LOC: LAB 09:17
PROVIDERS: ATTEND Internal Medicine Cardiovascular Disease
DX: R53.83 Other fatigue (principal); S51.812A Laceration without foreign body of left forearm, initial encounter; R79.1 Abnormal coagulation profile; X58.XXXA Exposure to other specified factors, initial encounter
CPT/HCPCS: 85610; 96372; G0463; J3420

== ENCOUNTER → 2019-11-18 | Outpatient (CLI) | payer MEDICARE, MEDICAID ==
[~2019-11-18] MED LIST changes: -BACITRACIN TOP OINT 1 UD PKG TOP ONE; -CYANOCOBALAMIN (B-12) 1000 MCG/1 ML VIAL IM ONE; -CYANOCOBALAMIN (B-12) 1000 MCG/1 ML VIAL ONE
[2019-11-18 12:04] LABS: Urine Blood Negative /uL (Negative); Urine Specific Gravity 1.013 (1.001-1.035)
[2019-11-18 12:06] LABS: Basophils # (auto) 0.1 uL; Eosinophils # (auto) 0.1 uL; Hemoglobin 11.1 g/dL (13.5-17.5); Monocytes # (auto) 0.5 uL; Monocytes % (auto) 9.1 % (0.0-12.0); Neutrophils # (auto) 3.8 uL; Platelet Count (auto) 118 10^3/uL (140-450); White Blood Cell 5.5 10^3/uL (4.4-10.8)
[2019-11-18 12:08] LABS: Eosinophils % (auto) 2.1 % (0.0-7.0); Hematocrit 33.2 % (41.0-53.0); Lymphocytes % (auto) 18.2 % (10.0-50.0); Mean Corpuscular Hemoglobin 33.9 pg (28.0-32.0); Mean Corpuscular Hgb Conc. 33.4 g/dL (32.0-36.0); Mean Corpuscular Volume 101.5 fL (80.0-100.0); Neutrophils % (auto) 69.6 % (37.0-80.0); Nucleated Red Blood Cells % 0.1 %; Red Blood Cells 3.27 10^6/uL (4.5-5.90); Red Cell Distribution Width 15.3 % (11.8-14.3)
[2019-11-18 12:14] LABS: Potassium 4.3 mmol/L (3.5-5.1)
[2019-11-18 12:22] LABS: BUN/Creatinine Ratio 14.9; Calcium 9.6 mg/dL (8.5-10.1); Phosphorus 3.3 mg/dL (2.5-4.90); Uric Acid 5.3 mg/dL (3.5-7.2)
[2019-11-18 12:33] LABS: Protein, Urine 8.8 mg/dL (0.0-11.9)
[2019-11-18 12:44] LABS: Creatinine, Urine 99 mg/dL (30.0-125.0); Micro Albumin 7.78 mg/L (0-30.0)
[2019-11-18 12:49] LABS: % Iron Saturation 28.7 % (20-55)
== END | disposition home or self-care (01) ==
LOC: LAB 08:44
PROVIDERS: ATTEND Internal Medicine Cardiovascular Disease
DX: I12.9 Hypertensive chronic kidney disease with stage 1 through stage 4 chronic kidney disease, or unspecified chronic kidney disease (principal); N18.4 Chronic kidney disease, stage 4 (severe); E87.1 Hypo-osmolality and hyponatremia; E55.9 Vitamin D deficiency, unspecified; D63.1 Anemia in chronic kidney disease; R79.1 Abnormal coagulation profile
CPT/HCPCS: 36415; 80048; 81003; 82043; 82306; 82570; 82728; 83540; 83550; 83970; 84100; 84156; 84550; 85025; 85610

== ENCOUNTER → 2019-12-07 | Outpatient (CLI) | payer MEDICARE, MEDICAID | END | disposition home or self-care (01) | LOC: LAB 14:36 | PROVIDERS: ATTEND Internal Medicine Cardiovascular Disease | DX: R79.1 Abnormal coagulation profile (principal) | CPT/HCPCS: 85610 ==

== ENCOUNTER → 2019-12-23 | Outpatient (CLI) | payer MEDICARE, MEDICAID ==
[~2019-12-23] MED LIST changes: +BACITRACIN TOP OINT 1 UD PKG TOP ONE; +CYANOCOBALAMIN (B-12) 1000 MCG/1 ML VIAL IM ONE; +CYANOCOBALAMIN (B-12) 1000 MCG/1 ML VIAL ONE
[2019-12-23 10:35] VITALS: BP 113/65
--- NOTE | 2019-12-23 11:00 | NUR ---
Wound Care Wound care provided per MD order. Patient tolerated well and verbalized dressing care instructions. Follow up in clinic as directed. See e-MAR for medications given during this visit. NOTE GUILLERMO MATHIS PROVIDED WOUND CARE CLEANSED WITH NS APPLIED BACITRACIN OINTMENT NON ADHERENT DRESSING SECURED WITH COBAN. PT TOLERATED WELL
[2019-12-23 12:15] LABS: Basophils # (auto) 0 uL; Basophils % (auto) 0.9 % (0.0-2.0); Eosinophils # (auto) 0.1 uL; Eosinophils % (auto) 1.4 % (0.0-7.0); Hematocrit 33.5 % (41.0-53.0); Hemoglobin 11.1 g/dL (13.5-17.5); Lymphocytes # (auto) 0.5 uL; Lymphocytes % (auto) 13.6 % (10.0-50.0); Mean Corpuscular Hemoglobin 33.4 pg (28.0-32.0); Mean Corpuscular Hgb Conc. 33.2 g/dL (32.0-36.0); Mean Corpuscular Volume 100.5 fL (80.0-100.0); Monocytes # (auto) 0.6 uL; Monocytes % (auto) 17.2 % (0.0-12.0); Neutrophils # (auto) 2.4 uL; Neutrophils % (auto) 66.9 % (37.0-80.0); Nucleated Red Blood Cells % 0.1 %; Platelet Count (auto) 75 10^3/uL (140-450); Red Blood Cells 3.34 10^6/uL (4.5-5.90); Red Cell Distribution Width 15.6 % (11.8-14.3); White Blood Cell 3.6 10^3/uL (4.4-10.8)
[2019-12-23 12:25] VITALS: BP 113/68
--- NOTE | 2019-12-23 12:25 | NUR ---
Discharge Instructions See e-MAR for any mediations given with this visit. Patient education given on disease process. Patient verbalized understanding. Previous labs reviewed. Patient discharged in stable condition with after care instructions and follow up appointment. NOTE B12 IM L DELT CXR COMPLETED MD PROVIDED PRESCRIPTIONS FOR ANTIBIOTICS AND STEROID THERAPY
[2019-12-23 12:27] LABS: Calcium 9.8 mg/dL (8.5-10.1); Magnesium 2.6 mg/dL (1.6-2.6); Potassium 4.5 mmol/L (3.5-5.1)
[2019-12-23 12:30] LABS: BUN/Creatinine Ratio 14.3
--- NOTE | 2019-12-23 14:42 | NUR ---
CHF PT ARRIVED TO CHF CLINIC WITH COMPLAINTS OF SOB AND FATIGUE A/O X4 V/S S Addendum: 12/23/19 at 1508 by JEFF RIOS RN RN IA pt arrived at 0669
== END | disposition home or self-care (01) ==
LOC: CHF HDHVI 10:43
PROVIDERS: ATTEND Internal Medicine Cardiovascular Disease
DX: R53.83 Other fatigue (principal); S51.811A Laceration without foreign body of right forearm, initial encounter; R06.02 Shortness of breath; R05 Cough; I13.0 Hypertensive heart and chronic kidney disease with heart failure and stage 1 through stage 4 chronic kidney disease, or unspecified chronic kidney disease; I50.9 Heart failure, unspecified; N18.4 Chronic kidney disease, stage 4 (severe); D63.1 Anemia in chronic kidney disease; Z79.899 Other long term (current) drug therapy
CPT/HCPCS: 36415; 71046; 80048; 83735; 83880; 85025; 85610; 96372; G0463; J3420

== ENCOUNTER → 2019-12-30 | Outpatient (CLI) | payer MEDICARE, MEDICAID ==
[~2019-12-30] MED LIST changes: -CYANOCOBALAMIN (B-12) 1000 MCG/1 ML VIAL IM ONE; -CYANOCOBALAMIN (B-12) 1000 MCG/1 ML VIAL ONE
[2019-12-30 10:00] VITALS: BP 108/72
--- NOTE | 2019-12-30 10:00 | NUR ---
PATIENT IN CLINIC FOR SKIN TEAR ON LEFT HAND, PATIENT PLACED BANDAID AT HOME ON WOUND. WOUND CARE PROVIDED DOCUMENTED.
[2019-12-30 10:30] VITALS: BP 110/72
--- NOTE | 2019-12-30 10:30 | NUR ---
CHF CLINIC Discharge Instructions See e-MAR for any mediations given with this visit. Patient education given on disease process. Patient verbalized understanding. Previous labs reviewed. Patient discharged in stable condition with after care instructions and follow up appointment. NOTE WOUND CARE PROVIDED BY ANGELA MATHIS.
== END | disposition home or self-care (01) ==
LOC: LAB 09:47
PROVIDERS: ATTEND Internal Medicine Cardiovascular Disease
DX: R79.1 Abnormal coagulation profile (principal)
CPT/HCPCS: 85610; G0463

== ENCOUNTER → 2020-01-11 | Outpatient (CLI) | payer MEDICARE, MEDICAID ==
[~2020-01-11] MED LIST changes: +CYANOCOBALAMIN (B-12) 1000 MCG/1 ML VIAL IM ONE; +CYANOCOBALAMIN (B-12) 1000 MCG/1 ML VIAL ONE
[2020-01-11 09:57] VITALS: BP 107/56
--- NOTE | 2020-01-11 09:57 | NUR ---
CHF PT ARRIVED TO THE CHF CLINIC FOR TX AND EVAL. SKIN TEAR TO EWA, PT HAS BANDAID ON IT THAT IS CRUSTY WITH BLOOD, STATES GRANDSON HAS BEEN CHANGING BANDAIDS, VSS 0 DISTRESS. 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 UPDATED MD ORDERS RECEIVED AND NOTED
--- NOTE | 2020-01-11 10:18 | NUR ---
Wound Care Wound care provided per MD order. Patient tolerated well and verbalized dressing care instructions. Follow up in clinic as directed. See e-MAR for medications given during this visit. Addendum: 01/11/20 at 1226 by KEVON STRONG. DELFINA NJ REMOVED OLD BANDAID AFTER SOAKING WITH NS. EWA SKIN TEAR APPROXIMATELY 2.5CM BY 1 CM . SKIN IS MISSING. CLEANSED WITH NS DABBED WITH STERILE GUAZE APPLIED BACITRACIN. AND COVERED WITH STERILE NON ADHERENT GAUZE AND TEGADERM.
[2020-01-11 10:33] VITALS: BP 110/55
--- NOTE | 2020-01-11 10:33 | NUR ---
Discharge Instructions See e-MAR for any mediations given with this visit. Patient education given on disease process. Patient verbalized understanding. Previous labs reviewed. Patient discharged in stable condition with after care instructions and follow up appointment. MEDICATIONS VITAMIN B12 IM RIGHT DELTOID LOT # [id number] EXP 05-01 BACITRACIN OINTMENT INR DONE. PT TO HOLD COUMADIN DOSE TONIGHT AND FOLLOW UP IN THE CLINIC ON SATURDAY FOR REPEAT INR PER MD CASTRO
== END | disposition home or self-care (01) ==
LOC: CHF HDHVI 09:52
PROVIDERS: ATTEND Internal Medicine Cardiovascular Disease
DX: R53.83 Other fatigue (principal); I48.91 Unspecified atrial fibrillation; S51.811D Laceration without foreign body of right forearm, subsequent encounter; I13.0 Hypertensive heart and chronic kidney disease with heart failure and stage 1 through stage 4 chronic kidney disease, or unspecified chronic kidney disease; N18.4 Chronic kidney disease, stage 4 (severe); I50.9 Heart failure, unspecified; Z79.899 Other long term (current) drug therapy
CPT/HCPCS: 85610; 96372; G0463; J3420

== ENCOUNTER → 2020-01-14 | Outpatient (CLI) | payer MEDICARE, MEDICAID ==
[~2020-01-14] MED LIST changes: -BACITRACIN TOP OINT 1 UD PKG TOP ONE; -CYANOCOBALAMIN (B-12) 1000 MCG/1 ML VIAL IM ONE; -CYANOCOBALAMIN (B-12) 1000 MCG/1 ML VIAL ONE
== END | disposition home or self-care (01) ==
LOC: LAB 09:43
PROVIDERS: ATTEND Internal Medicine Cardiovascular Disease
DX: R79.1 Abnormal coagulation profile (principal)
CPT/HCPCS: 85610

== ENCOUNTER → 2020-01-21 | Outpatient (CLI) | payer MEDICARE, MEDICAID ==
[2020-01-21 12:11] VITALS: BP 94/56
== END | disposition home or self-care (01) ==
LOC: LAB 11:37
PROVIDERS: ATTEND Internal Medicine Cardiovascular Disease
DX: R79.1 Abnormal coagulation profile (principal)
CPT/HCPCS: 85610

== ENCOUNTER → 2020-02-15 | Outpatient (CLI) | payer MEDICARE, MEDICAID ==
[~2020-02-15] MED LIST changes: +BACITRACIN TOP OINT 1 UD PKG TOP ONE; +PHYTONADIONE (VIT K)10 MG/ML 1ML VIAL SUBCUT ONE
[2020-02-15 11:15] VITALS: BP 104/68
[2020-02-15 11:40] VITALS: BP 104/68
[2020-02-15 12:04] LABS: Eosinophils # (auto) 0.1 10 ^3/uL (0-0.8); Hemoglobin 10.1 g/dL (13.5-17.5); Monocytes # (auto) 0.6 10 ^3/uL (0-1.3); Nucleated Red Blood Cells % 0.1 %
[2020-02-15 12:05] LABS: Basophils # (auto) 0 10 ^3/uL (0-0.2); Basophils % (auto) 0.5 % (0.0-2.0); Hematocrit 29.1 % (41.0-53.0); Lymphocytes # (auto) 0.8 10 ^3/uL (0.4-5.4); Lymphocytes % (auto) 11.1 % (10.0-50.0); Mean Corpuscular Hemoglobin 34.7 pg (28.0-32.0); Mean Corpuscular Hgb Conc. 34.7 g/dL (32.0-36.0); Mean Corpuscular Volume 99.9 fL (80.0-100.0); Monocytes % (auto) 8.2 % (0.0-12.0); Neutrophils % (auto) 79.2 % (37.0-80.0); Platelet Count (auto) 154 10^3/uL (140-450); Red Blood Cells 2.91 10^6/uL (4.5-5.90); Red Cell Distribution Width 15.5 % (11.8-14.3); White Blood Cell 7.6 10^3/uL (4.4-10.8)
[2020-02-15 14:23] LABS: INR > 8.0 (0.9-1.15)
[2020-02-15 14:24] LABS: Partial Thromboplastin Time > 139.0 sec (23.64-32.05)
== END | disposition home or self-care (01) ==
LOC: Rad HDHVI 10:53
PROVIDERS: ATTEND Internal Medicine Cardiovascular Disease
DX: D64.9 Anemia, unspecified (principal); M25.562 Pain in left knee; Z91.041 Radiographic dye allergy status; Z98.890 Other specified postprocedural states
CPT/HCPCS: 36415; 73562; 85025; 85610; 85730; 96372; G0463; 90471

== ENCOUNTER → 2020-02-19 | Outpatient (CLI) | payer MEDICARE, MEDICAID ==
[~2020-02-19] MED LIST changes: -PHYTONADIONE (VIT K)10 MG/ML 1ML VIAL SUBCUT ONE
[2020-02-19 11:17] VITALS: BP 118/64
--- NOTE | 2020-02-19 11:17 | NUR ---
PT TO CHF CLINIC FROM B/O PT SENT TO SENT CLINIC FROM B/O. PT ALERT AND AWAKE WITH NO S/S OF DISTRESS/SOB. VSS. WILL CARRY OUT MD ORDERS.
[2020-02-19 11:30] VITALS: BP 118/64
--- NOTE | 2020-02-19 11:30 | NUR ---
WOUND CARE PT HAS CHRONIC SKIN TEAR TO RIGHT FOREARM. DRESSING APPEARS DIRTY. WOUND CARE PERFORMED BY KAREN MEDINA. OLD DRESSING REMOVED. SITE CLEANED WITH NS AND PATTED DRY WITH STERILE GAUZE. BACITRACIN APPLIED PER MD ORDERS. SITE COVERED WITH STERI STRIPS, DRY GAUZE, KERLIX, AND SECURED WITH TAPE. PT TOLERATED WELL. PT/PCG EDUCATED TO KEEP DRESSING C/D/I AND EDUCATED REGARDING S/S OF INFECTION. PT/PCG VERBALIZED UNDERSTANDING.
[2020-02-19 11:40] VITALS: BP 122/70
--- NOTE | 2020-02-19 11:40 | NUR ---
CHF Discharge Instructions See e-MAR for any mediations given with this visit. Patient education given on disease process. Patient verbalized understanding. Previous labs reviewed. Patient discharged in stable condition with after care instructions and follow up appointment. NOTES WOUND CARE PERFORMED BY KAREN MEDINA. PT/PCG EDUCATED ON WOUND CARE AND KEEPING DRESSING C/D/I ALSO EDUCATED RE:S/S OF INFECTION AND WHEN TO REPORT TO DOCTOR/ PT/PCG VERBALIZED UNDERSTANDING. Addendum: 02/19/20 at 1352 by WILLOW MOMIN RN PT/PCG ALSO RE-EDUCATED AGAIN TO STOP COUMADIN IMMEDIATELY AND TO START XARELTO 10MG DAILY ON SATURDAY. PT/PCG VERBALIZED UNDERSTANDING.
[2020-02-19 15:53] LABS: Hemoglobin 9.6 g/dL (13.5-17.5)
[2020-02-19 15:55] LABS: Hematocrit 28.5 % (41.0-53.0); Mean Corpuscular Hemoglobin 34.6 pg (28.0-32.0); Mean Corpuscular Hgb Conc. 33.6 g/dL (32.0-36.0); Mean Corpuscular Volume 103.1 fL (80.0-100.0); Platelet Count (auto) 174 10^3/uL (140-450); Red Blood Cells 2.76 10^6/uL (4.5-5.90); Red Cell Distribution Width 16.3 % (11.8-14.3)
[2020-02-19 15:59] LABS: Basophils % (manual) 0 (0.0-2.0); Blast Cells 0; Eosinophils % (manual) 0 (0-7); Metamyelocytes % 0; Myelocytes % 0; Promyelocytes % 0; Reactive Lymphocytes 0
[2020-02-19 16:21] LABS: Band Neutrophils % (manual) 1; Lymphocytes % (manual) 8 (10.0-50.0); Monocytes % (manual) 7 (0-12)
== END | disposition home or self-care (01) ==
LOC: CHF HDHVI 11:14
PROVIDERS: ATTEND Internal Medicine Cardiovascular Disease
DX: D64.9 Anemia, unspecified (principal); R79.1 Abnormal coagulation profile
CPT/HCPCS: 36415; 85007; 85027; G0463

== ENCOUNTER → 2020-03-11 | Outpatient (CLI) | payer MEDICARE, MEDICAID ==
[~2020-03-11] MED LIST changes: -BACITRACIN TOP OINT 1 UD PKG TOP ONE
== END | disposition home or self-care (01) ==
LOC: LAB 11:42
PROVIDERS: ATTEND Internal Medicine Cardiovascular Disease
DX: R89.9 Unspecified abnormal finding in specimens from other organs, systems and tissues (principal)
CPT/HCPCS: 87205; 89051; 89060

== ENCOUNTER → 2020-03-21 | Outpatient (CLI) | payer MEDICARE, MEDICAID | END | disposition home or self-care (01) | LOC: CHF HDHVI 11:17 | PROVIDERS: ATTEND Internal Medicine Cardiovascular Disease | DX: R79.1 Abnormal coagulation profile (principal) | CPT/HCPCS: 85610 ==

== ENCOUNTER → 2020-03-30 | Outpatient (CLI) | payer MEDICARE, MEDICAID ==
[2020-03-30 11:59] LABS: Eosinophils # (auto) 0.1 10 ^3/uL (0-0.8); Hemoglobin 9.7 g/dL (13.5-17.5); Lymphocytes # (auto) 1.2 10 ^3/uL (0.4-5.4); Neutrophils # (auto) 4.2 10 ^3/uL (1.6-8.6)
[2020-03-30 12:03] LABS: Basophils # (auto) 0.1 10 ^3/uL (0-0.2); Basophils % (auto) 0.9 % (0.0-2.0); Eosinophils % (auto) 2.2 % (0.0-7.0); Lymphocytes % (auto) 19.7 % (10.0-50.0); Mean Corpuscular Hemoglobin 33.3 pg (28.0-32.0); Mean Corpuscular Hgb Conc. 32.5 g/dL (32.0-36.0); Mean Corpuscular Volume 102.5 fL (80.0-100.0); Monocytes # (auto) 0.4 10 ^3/uL (0-1.3); Monocytes % (auto) 7.1 % (0.0-12.0); Neutrophils % (auto) 70.1 % (37.0-80.0); Nucleated Red Blood Cells % 0.1 %; Platelet Count (auto) 129 10^3/uL (140-450); Red Blood Cells 2.93 10^6/uL (4.5-5.90); Red Cell Distribution Width 16.6 % (11.8-14.3)
[2020-03-30 12:19] LABS: Albumin 2.8 g/dL (3.4-5.0); Calcium 9.1 mg/dL (8.5-10.1); Potassium 4.7 mmol/L (3.5-5.1)
[2020-03-30 12:22] LABS: BUN/Creatinine Ratio 13.6; Bilirubin, Total 0.3 mg/dL (0.2-1.0); Total Protein 7.1 g/dL (6.4-8.2)
== END | disposition home or self-care (01) ==
LOC: LAB 09:07
PROVIDERS: ATTEND Internal Medicine Cardiovascular Disease
DX: I50.9 Heart failure, unspecified (principal); Z79.899 Other long term (current) drug therapy
CPT/HCPCS: 36415; 80053; 83880; 85025

== ENCOUNTER → 2020-05-09 | Outpatient (CLI) | payer MEDICARE, MEDICAID ==
[~2020-05-09] VITALS: Ht 177.8 cm; Wt 86.2 kg
[~2020-05-09] MED LIST changes: +AZEL137S7; +FURO20TA3 PO; +HYDR-531 PO; +RIVA10TA PO
[2020-05-09 08:15] VITALS: BP 115/72
--- NOTE | 2020-05-09 08:15 | NUR ---
Patient in clinic for scheduled preop visit, AAOx4, ambulatory, breathing even and unlabored. Caregiver Mariluz with patient.
[2020-05-09 08:38] VITALS: BP 100/68
--- NOTE | 2020-05-09 08:38 | NUR ---
Pre-Op Discharge Summary: See e-MAR for any medications given for this visit. Pre-op orders received and carried out per MD of EKG, LABS and chest xrays. Patient given a copy of EKG with instructions to go to [facility] out patient for further follow up care. Note Patient caregiver Mariluz given instructions, caregiver verbalized understanding.
[2020-05-09 12:04] LABS: Basophils # (auto) 0 10 ^3/uL (0-0.2); Basophils % (auto) 0.6 % (0.0-2.0); Eosinophils # (auto) 0.1 10 ^3/uL (0-0.8); Eosinophils % (auto) 1.8 % (0.0-7.0); Hematocrit 31.3 % (41.0-53.0); Hemoglobin 10.2 g/dL (13.5-17.5); Lymphocytes # (auto) 0.8 10 ^3/uL (0.4-5.4); Lymphocytes % (auto) 12.2 % (10.0-50.0); Mean Corpuscular Hemoglobin 32.7 pg (28.0-32.0); Mean Corpuscular Hgb Conc. 32.8 g/dL (32.0-36.0); Mean Corpuscular Volume 99.7 fL (80.0-100.0); Monocytes # (auto) 0.4 10 ^3/uL (0-1.3); Monocytes % (auto) 6.8 % (0.0-12.0); Neutrophils # (auto) 4.9 10 ^3/uL (1.6-8.6); Neutrophils % (auto) 78.6 % (37.0-80.0); Platelet Count (auto) 114 10^3/uL (140-450); Red Blood Cells 3.14 10^6/uL (4.5-5.90); Red Cell Distribution Width 15.9 % (11.8-14.3); White Blood Cell 6.2 10^3/uL (4.4-10.8)
[2020-05-09 12:16] LABS: INR 1.01 (0.9-1.15); Partial Thromboplastin Time 33.6 sec (23.64-32.05)
[2020-05-09 12:18] LABS: BUN/Creatinine Ratio 14.4; Calcium 9.7 mg/dL (8.5-10.1); Potassium 4.1 mmol/L (3.5-5.1)
== END | disposition home or self-care (01) ==
LOC: Rad HDHVI 08:01
PROVIDERS: ATTEND Internal Medicine Cardiovascular Disease
DX: I70.0 Atherosclerosis of aorta (principal); Z01.812 Encounter for preprocedural laboratory examination; D64.9 Anemia, unspecified; I10 Essential (primary) hypertension; R79.1 Abnormal coagulation profile; I51.7 Cardiomegaly
CPT/HCPCS: 36415; 71046; 80048; 85025; 85610; 85730; 93005; G0463

== ENCOUNTER 2020-05-12 06:45 | Inpatient (IN) | payer MEDICARE, MEDICAID ==
[~2020-05-12] VITALS: Ht 177.8 cm; Wt 87.1 kg
[~2020-05-12 06:45] MED LIST changes: -AZIT250T9 PO; -CETI10TA93 PO; -DOCU-94 PO; -ENAL20TA OR; -FAMO40TA49 PO; -FERR27TA2 PO; -FLUO20CA19; -ISOS20TA56; -MAGN400T40 OR; -WARF2TAB PO
[2020-05-12] MEDS ORDERED: VANCOMYCIN 1GM/250ML 250 ML IV ONE (08:45)
[2020-05-12] MEDS ORDERED: MIDAZOLAM HCL 1MG/1ML-2 ML VIAL ONE ×2 (10:09→10:26)
[2020-05-12] MEDS ORDERED: LIDOCAINE 2%HCL (LOCAL ANESTH.) INJ 20ML MDV ONE (10:09)
[2020-05-12] MEDS ORDERED: VANCOMYCIN HCL 1000 MG VL ONE (10:09)
[2020-05-12] MEDS ORDERED: fentaNYL CITRATE 100 MCG/2 ML VL ONE (10:09)
[2020-05-12] MEDS ORDERED: NITROGLYCERIN 0.4 MG SL TAB SL PRN (11:15)
[2020-05-12] MEDS ORDERED: ACETAMINOPHEN 500 MG TAB PO PRN (11:15)
[2020-05-12] MEDS ORDERED: MORPHINE SULF INJ 2 MG/ML SYRINGE 1ML IV PRN (11:15)
[2020-05-12] MEDS ORDERED: ONDANSETRON HCL 4 MG/2 ML VIAL IV PRN (11:15)
[2020-05-12] MEDS: HYDROcodone-ACET 5/325MG TAB PO PRN ×2 (12:12→20:40)
[2020-05-12] MEDS: SODIUM CHLOR 0.9% PF (SALINE LOCK) 10ML VIAL/SYR IV SCH ×2 (14:32→22:11)
[2020-05-12] MEDS: ceFAZolin 1GM/50ML 50 ML IV SCH ×2 (14:32→22:10)
--- NOTE | 2020-05-12 16:30 | NUR ---
Telemetry admit from clinical lab assistant ELIZABETH WAHL admitted to Telemetry unit after SBAR received. Patient oriented to Erika Green, primary RN, unit, room, bed, and unit policies regarding patient care and visiting hours. Patient now on continuous telemetry monitoring, tele box # [id number] and telemetry reading on arrival to unit is . Patient weighed by bedscale and encouraged to call if they need something. All questions and concerns addressed, patient verbalized understanding. Note:
[2020-05-12 16:44] VITALS: BP 116/79
[2020-05-12 17:21] VITALS: BP 116/76
--- NOTE | 2020-05-12 19:15 | NUR ---
Opening Shift Note Assumed care of patient. Patient is awake, alert, and oriented X 4. No S/S of respiratory distress noted. Respirations are regular and non-labored. Patient reports pain 6 out of 10. Will be addressed per dr's order. Bed in lowest locked position, call light within reach, side rails up x 2, fall precautions in place. Urinal at bed side. POC discussed with the patient and pt instructed to call for assistance PRN. Will continue to monitor for changes Q1hr and PRN.
[2020-05-12 20:00] VITALS: BP 99/70
[2020-05-12 22:00] VITALS: BP 99/70
[2020-05-12] MEDS: FLUTICASONE PROPIONATE SCH (22:00)
[2020-05-12] MEDS ORDERED: ALLOPURINOL 300 MG TAB PO SCH (22:00)
[2020-05-12] MEDS: AZELASTINE SCH (22:00)
[2020-05-12] MEDS: VANCOMYCIN 1GM/250ML 250 ML IV SCH (22:11)
[2020-05-13 05:00] VITALS: BP 108/66
[2020-05-13] MEDS: ceFAZolin 1GM/50ML 50 ML IV SCH (05:55)
[2020-05-13] MEDS: SODIUM CHLOR 0.9% PF (SALINE LOCK) 10ML VIAL/SYR IV SCH ×2 (05:56→10:14)
[2020-05-13] MEDS ORDERED: METOPROLOL SUCCINATE XL 50 MG TAB PO SCH (10:00)
[2020-05-13] MEDS: FLUTICASONE PROPIONATE SCH (10:00)
[2020-05-13] MEDS ORDERED: FUROSEMIDE 20 MG TAB PO SCH (10:00)
[2020-05-13] MEDS: AZELASTINE SCH (10:00)
[2020-05-13 10:02] VITALS: BP 103/71
[2020-05-13] MEDS: VANCOMYCIN 1GM/250ML 250 ML IV SCH (10:12)
--- NOTE | 2020-05-13 12:20 | NUR ---
Home Health Spoke with patient in regards to home health. Patient currently does not have home health and has no preference in regards to which home health and is okay with Dr. Nroris's suggestion.
--- NOTE | 2020-05-13 12:50 | NUR ---
faxed paperwork to [facility].
[2020-05-13 13:00] VITALS: BP 116/67
--- NOTE | 2020-05-13 13:08 | NUR ---
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 Per DELFINA Rowley patient has not been on service with [facility] but agrees to receives service from agency. Advised DELFINA Rowley to fax orders to [facility] [phone] . DELFINA Rowley verbalize understanding d/c plan.
[2020-05-13 14:10] VITALS: BP 103/71
--- NOTE | 2020-05-13 14:18 | NUR ---
Home Health Approved by Diane hagan [facility]
== END 2020-05-13 17:03 | disposition home health service (06) | DRG 245 ==
LOC: CATH 06:45 → TELE-WESTW 06:46
PROVIDERS: ADMIT Internal Medicine Cardiovascular Disease; ATTEND Internal Medicine Cardiovascular Disease
PROC: 0JPT0PZ Removal of Cardiac Rhythm Related Device from Trunk Subcutaneous Tissue and Fascia, Open Approach (ICD-10-PCS; principal; 2020-05-12)
PROC: 0JH609Z Insertion of Cardiac Resynchronization Defibrillator Pulse Generator into Chest Subcutaneous Tissue and Fascia, Open Approach (ICD-10-PCS; 2020-05-12)
DX: I13.0 Hypertensive heart and chronic kidney disease with heart failure and stage 1 through stage 4 chronic kidney disease, or unspecified chronic kidney disease (principal); I50.23 Acute on chronic systolic (congestive) heart failure; D68.59 Other primary thrombophilia; I48.20 Chronic atrial fibrillation, unspecified; N18.3 Chronic kidney disease, stage 3 (moderate); D69.6 Thrombocytopenia, unspecified; E78.5 Hyperlipidemia, unspecified; I25.10 Atherosclerotic heart disease of native coronary artery without angina pectoris; I42.0 Dilated cardiomyopathy; J44.9 Chronic obstructive pulmonary disease, unspecified; M19.90 Unspecified osteoarthritis, unspecified site; Z11.59 Encounter for screening for other viral diseases
CPT/HCPCS: 33215; 99152; 99153; G0378; J0690; J2250

== ENCOUNTER → 2020-06-07 | Outpatient (CLI) | payer MEDICARE, MEDICAID | END | disposition home or self-care (01) | LOC: Rad HDHVI 10:25 | PROVIDERS: ATTEND Internal Medicine Cardiovascular Disease | DX: J98.11 Atelectasis (principal); J98.4 Other disorders of lung; R91.8 Other nonspecific abnormal finding of lung field; R06.02 Shortness of breath; Z91.041 Radiographic dye allergy status; Z95.0 Presence of cardiac pacemaker | CPT/HCPCS: 71046 ==

== ENCOUNTER → 2020-09-13 | Outpatient (CLI) | payer MEDICARE, MEDICAID ==
[~2020-09-13] MED LIST changes: +BACITRACIN TOP OINT 1 UD PKG TOP ONE
[2020-09-13 11:15] VITALS: BP 96/65
[2020-09-13 11:49] VITALS: BP 93/60
== END | disposition home or self-care (01) ==
LOC: CHF HDHVI 11:35
PROVIDERS: ATTEND Internal Medicine Cardiovascular Disease
DX: S41.111A Laceration without foreign body of right upper arm, initial encounter (principal); X58.XXXA Exposure to other specified factors, initial encounter; Y93.89 Activity, other specified; Y92.89 Other specified places as the place of occurrence of the external cause; Y99.8 Other external cause status
CPT/HCPCS: G0463

== ENCOUNTER → 2020-09-16 | Outpatient (CLI) | payer MEDICARE, MEDICAID ==
[~2020-09-16] MED LIST changes: -BACITRACIN TOP OINT 1 UD PKG TOP ONE
[2020-09-16 10:30] VITALS: BP 108/60
[2020-09-16 10:58] VITALS: BP 108/60
== END | disposition home or self-care (01) ==
LOC: CHF HDHVI 10:14
PROVIDERS: ATTEND Internal Medicine Cardiovascular Disease
DX: S41.112A Laceration without foreign body of left upper arm, initial encounter (principal); I11.0 Hypertensive heart disease with heart failure; I50.23 Acute on chronic systolic (congestive) heart failure; X58.XXXA Exposure to other specified factors, initial encounter; Y93.89 Activity, other specified; Y92.89 Other specified places as the place of occurrence of the external cause; Y99.8 Other external cause status
CPT/HCPCS: G0463

== ENCOUNTER 2020-11-08 14:42 | Emergency (ER) | payer MEDICARE, MEDICAID ==
[~2020-11-08] VITALS: Ht 175.3 cm; Wt 79.4 kg
[2020-11-08 15:47] LABS: Basophils # (auto) 0 10 ^3/uL (0-0.2); Eosinophils # (auto) 0 10 ^3/uL (0-0.8); Hemoglobin 10.2 g/dL (13.5-17.5); Lymphocytes # (auto) 0.7 10 ^3/uL (0.4-5.4); Lymphocytes % (auto) 14.5 % (10.0-50.0); Monocytes # (auto) 0.4 10 ^3/uL (0-1.3); Neutrophils # (auto) 3.5 10 ^3/uL (1.6-8.6); Neutrophils % (auto) 75.1 % (37.0-80.0); Red Cell Distribution Width 16.1 % (11.8-14.3); White Blood Cell 4.7 10^3/uL (4.4-10.8)
[2020-11-08 15:49] LABS: Basophils % (auto) 0.6 % (0.0-2.0); Eosinophils % (auto) 0.8 % (0.0-7.0); Hematocrit 29.4 % (41.0-53.0); Mean Corpuscular Hemoglobin 34.9 pg (28.0-32.0); Mean Corpuscular Hgb Conc. 34.6 g/dL (32.0-36.0); Mean Corpuscular Volume 100.8 fL (80.0-100.0); Platelet Count (auto) 93 10^3/uL (140-450); Red Blood Cells 2.91 10^6/uL (4.5-5.90)
[2020-11-08 16:10] LABS: Calcium 9.2 mg/dL (8.5-10.1); Potassium 4.3 mmol/L (3.5-5.1)
[2020-11-08 16:13] LABS: BUN/Creatinine Ratio 16.5; Bilirubin, Total 0.4 mg/dL (0.2-1.0); Total Protein 6.8 g/dL (6.4-8.2)
[2020-11-08 17:17] LABS: Urine Bacteria NONE SEEN /hpf (None Seen); Urine Blood Negative /uL (Negative); Urine Specific Gravity 1.009 (1.001-1.035); Urine WBC <1 /hpf (0 - 3)
[2020-11-08 19:55] VITALS: BP 98/59
== END 2020-11-08 23:53 | disposition home or self-care (01) ==
LOC: ER 14:42
DX: R33.8 Other retention of urine (principal); I13.0 Hypertensive heart and chronic kidney disease with heart failure and stage 1 through stage 4 chronic kidney disease, or unspecified chronic kidney disease; N18.9 Chronic kidney disease, unspecified; I50.9 Heart failure, unspecified; E78.5 Hyperlipidemia, unspecified; I25.2 Old myocardial infarction; Z95.0 Presence of cardiac pacemaker; Z79.899 Other long term (current) drug therapy; Z88.8 Allergy status to other drugs, medicaments and biological substances
CPT/HCPCS: 36415; 51702; 80053; 81001; 85025

== ENCOUNTER → 2020-11-23 | Outpatient (CLI) | payer MEDICARE, MEDICAID ==
[2020-11-23 11:34] LABS: Urine Blood 2+ /uL (Negative); Urine Specific Gravity 1.015 (1.001-1.035)
== END | disposition home or self-care (01) ==
LOC: LAB 09:52
PROVIDERS: ATTEND Internal Medicine Cardiovascular Disease
DX: N39.0 Urinary tract infection, site not specified (principal)
CPT/HCPCS: 81003; 87086

== ENCOUNTER → 2020-12-20 | Outpatient (CLI) | payer MEDICARE, MEDICAID ==
[2020-12-20 15:41] LABS: Basophils # (auto) 0 10 ^3/uL (0-0.2); Lymphocytes # (auto) 0.6 10 ^3/uL (0.4-5.4); Mean Corpuscular Volume 102.7 fL (80.0-100.0); Monocytes # (auto) 0.4 10 ^3/uL (0-1.3)
[2020-12-20 15:42] LABS: Basophils % (auto) 0.7 % (0.0-2.0); Eosinophils # (auto) 0.1 10 ^3/uL (0-0.8); Eosinophils % (auto) 2.7 % (0.0-7.0); Hematocrit 24.3 % (41.0-53.0); Hemoglobin 8.4 g/dL (13.5-17.5); Mean Corpuscular Hemoglobin 35.5 pg (28.0-32.0); Mean Corpuscular Hgb Conc. 34.6 g/dL (32.0-36.0); Monocytes % (auto) 7.9 % (0.0-12.0); Neutrophils % (auto) 77.7 % (37.0-80.0); Platelet Count (auto) 97 10^3/uL (140-450); Red Blood Cells 2.36 10^6/uL (4.5-5.90); White Blood Cell 5.1 10^3/uL (4.4-10.8)
[2020-12-20 15:59] LABS: BUN/Creatinine Ratio 12.9; Calcium 8.9 mg/dL (8.5-10.1); Potassium 3.8 mmol/L (3.5-5.1)
== END | disposition home or self-care (01) ==
LOC: Rad HDHVI 11:10
PROVIDERS: ATTEND Internal Medicine Cardiovascular Disease
DX: I70.0 Atherosclerosis of aorta (principal); I51.7 Cardiomegaly; I50.23 Acute on chronic systolic (congestive) heart failure; R06.02 Shortness of breath; D64.9 Anemia, unspecified; Z95.810 Presence of automatic (implantable) cardiac defibrillator
CPT/HCPCS: 36415; 71046; 80048; 83880; 85025

== ENCOUNTER → 2020-12-23 | Outpatient (CLI) | payer MEDICARE, MEDICAID ==
[~2020-12-23] MED LIST changes: +IOHEXOL 350 MG/ML 100ML IJ ONE; +SODIUM CHLORIDE 0.9% 100 ML IV ONE; +diphenhdrAMINE HCL 50 MG/1 ML VL IV ONE; +diphenhdrAMINE HCL 50 MG/1 ML VL ONE; +methylPREDNISolone SOD SUCC 125 MG/2 ML VL IV ONE; +methylPREDNISolone SOD SUCC 125 MG/2 ML VL ONE
[2020-12-23 10:05] VITALS: BP 126/76
[2020-12-23 11:32] VITALS: BP 135/79
== END | disposition home or self-care (01) ==
LOC: Rad HDHVI 09:50
PROVIDERS: ATTEND Internal Medicine Cardiovascular Disease
DX: R91.8 Other nonspecific abnormal finding of lung field (principal); R79.89 Other specified abnormal findings of blood chemistry; I13.0 Hypertensive heart and chronic kidney disease with heart failure and stage 1 through stage 4 chronic kidney disease, or unspecified chronic kidney disease; I50.23 Acute on chronic systolic (congestive) heart failure; N18.9 Chronic kidney disease, unspecified; E78.5 Hyperlipidemia, unspecified; I25.2 Old myocardial infarction; Z95.810 Presence of automatic (implantable) cardiac defibrillator; Z79.899 Other long term (current) drug therapy
CPT/HCPCS: 71260; 96374; 96375; G0463; J1200; J2930; Q9967; 96361

== ENCOUNTER → 2021-01-27 | Outpatient (CLI) | payer MEDICARE, MEDICAID ==
[~2021-01-27] MED LIST changes: -IOHEXOL 350 MG/ML 100ML IJ ONE; -SODIUM CHLORIDE 0.9% 100 ML IV ONE; -diphenhdrAMINE HCL 50 MG/1 ML VL IV ONE; -diphenhdrAMINE HCL 50 MG/1 ML VL ONE; -methylPREDNISolone SOD SUCC 125 MG/2 ML VL IV ONE; -methylPREDNISolone SOD SUCC 125 MG/2 ML VL ONE
[2021-01-27 11:40] LABS: Urine Blood 1+ /uL (Negative); Urine Specific Gravity 1.014 (1.001-1.035)
[2021-01-27 11:49] LABS: Basophils # (auto) 0 10 ^3/uL (0-0.2); Basophils % (auto) 0.5 % (0.0-2.0); Eosinophils # (auto) 0.1 10 ^3/uL (0-0.8); Eosinophils % (auto) 1.5 % (0.0-7.0); Hematocrit 25.6 % (41.0-53.0); Hemoglobin 8.5 g/dL (13.5-17.5); Lymphocytes # (auto) 0.5 10 ^3/uL (0.4-5.4); Lymphocytes % (auto) 9.9 % (10.0-50.0); Mean Corpuscular Hemoglobin 32.9 pg (28.0-32.0); Mean Corpuscular Hgb Conc. 33.3 g/dL (32.0-36.0); Mean Corpuscular Volume 98.8 fL (80.0-100.0); Monocytes # (auto) 0.4 10 ^3/uL (0-1.3); Monocytes % (auto) 8.1 % (0.0-12.0); Neutrophils # (auto) 3.8 10 ^3/uL (1.6-8.6); Platelet Count (auto) 96 10^3/uL (140-450); Red Blood Cells 2.59 10^6/uL (4.5-5.90); White Blood Cell 4.8 10^3/uL (4.4-10.8)
[2021-01-27 15:43] LABS: Calcium 8.9 mg/dL (8.5-10.1)
[2021-01-27 15:45] LABS: BUN/Creatinine Ratio 8.5; Phosphorus 2.5 mg/dL (2.5-4.90); Uric Acid 3.4 mg/dL (3.5-7.2)
[2021-01-27 16:13] LABS: Creatinine, Urine 54 mg/dL (30.0-125.0); Protein, Urine 94.5 mg/dL (0.0-11.9)
[2021-01-27 16:25] LABS: % Iron Saturation 17.3 % (20-55)
== END | disposition home or self-care (01) ==
LOC: LAB 10:08
PROVIDERS: ATTEND Internal Medicine Cardiovascular Disease
DX: I12.9 Hypertensive chronic kidney disease with stage 1 through stage 4 chronic kidney disease, or unspecified chronic kidney disease (principal); N18.4 Chronic kidney disease, stage 4 (severe); D63.1 Anemia in chronic kidney disease; E87.5 Hyperkalemia; Z79.899 Other long term (current) drug therapy
CPT/HCPCS: 36415; 80048; 81003; 82043; 82306; 82570; 82728; 83540; 83550; 83970; 84100; 84156; 84550; 85025; 87086; 87088; 87186

== ENCOUNTER 2021-04-08 17:31 | Inpatient (IN) | payer MEDICARE, MEDICAID ==
[~2021-04-08] VITALS: Ht 175.3 cm; Wt 78.5 kg
[~2021-04-08 17:31] MED LIST changes: -ALLO300T2; +ALLO300T2 PO; -TAMS0.4C36 OR; +TAMS0.4C36 PO
[2021-04-08] MEDS ORDERED: MORPHINE SULFATE 4 MG/ML SYR/VIAL IV ONE (18:15)
[2021-04-08 19:14] LABS: Basophils # (auto) 0.1 10 ^3/uL (0-0.2); Eosinophils # (auto) 0.2 10 ^3/uL (0-0.8); Eosinophils % (auto) 2.9 % (0.0-7.0); Hemoglobin 9.8 g/dL (13.5-17.5); Lymphocytes # (auto) 0.7 10 ^3/uL (0.4-5.4); Lymphocytes % (auto) 9.9 % (10.0-50.0); Mean Corpuscular Hemoglobin 31.3 pg (28.0-32.0); Mean Corpuscular Hgb Conc. 33.7 g/dL (32.0-36.0); Monocytes # (auto) 0.5 10 ^3/uL (0-1.3); Monocytes % (auto) 7.5 % (0.0-12.0); Neutrophils # (auto) 5.3 10 ^3/uL (1.6-8.6); Neutrophils % (auto) 78.7 % (37.0-80.0); Red Blood Cells 3.12 10^6/uL (4.5-5.90); Red Cell Distribution Width 17.1 % (11.8-14.3); White Blood Cell 6.7 10^3/uL (4.4-10.8)
[2021-04-08 19:32] LABS: Potassium 3.9 mmol/L (3.5-5.1)
[2021-04-08 19:38] LABS: INR 1.11 (0.9-1.15); Partial Thromboplastin Time 31.3 sec (23.0-31.2)
[2021-04-08 19:42] LABS: Albumin 3.1 g/dL (3.4-5.0); BUN/Creatinine Ratio 23.2; Bilirubin, Total 0.4 mg/dL (0.2-1.0); Calcium 9.2 mg/dL (8.5-10.1); Magnesium 1.2 mg/dL (1.6-2.6); Total Protein 7.5 g/dL (6.4-8.2)
[2021-04-08] MEDS ORDERED: MAGNESIUM SULFATE 1GM/100ML 100 ML IV ONE (21:45)
[2021-04-08] MEDS ORDERED: ALBUTEROL SULF 2.5 MG/0.5ML(0.5%) NEB SOLN NEB PRN (21:45)
[2021-04-08] MEDS ORDERED: NITROGLYCERIN 0.4 MG SL TAB SL PRN (21:45)
[2021-04-08] MEDS ORDERED: HYDROcodone-ACET 5/325MG TAB PO PRN (21:45)
[2021-04-08] MEDS ORDERED: IPRATROPIUM BROM 0.5 MG/2.5ML INH SOL NEB PRN (21:45)
[2021-04-08] MEDS ORDERED: ACETAMINOPHEN 325 MG TAB PO PRN (21:45)
[2021-04-08] MEDS ORDERED: MORPHINE SULFATE INJECTION 2 MG/ML SYRG IV PRN (21:45)
[2021-04-08] MEDS ORDERED: ONDANSETRON HCL 4 MG/2 ML VIAL IV PRN (21:45)
[2021-04-08 21:55] VITALS: BP 87/60
[2021-04-08] MEDS ORDERED: HYDROcodone-ACET 5/325MG TAB PO ONE (22:00)
[2021-04-08] MEDS: FAMOTIDINE (10MG/ML) 2ML VL IV SCH (22:37)
[2021-04-08] MEDS: ASCORBIC ACID 500 MG TAB PO SCH (22:37)
[2021-04-08] MEDS: SODIUM CHLOR 0.9% PF (SALINE LOCK) 10ML VIAL/SYR IV SCH (22:37)
[2021-04-08] MEDS: cefTRIAXone 1GM/50ML D5W 50 ML IV SCH (22:37)
[2021-04-09 04:06] LABS: Urine Bacteria FEW /hpf (None Seen); Urine Blood 2+ /uL (Negative); Urine WBC 88 /hpf (0 - 3)
[2021-04-09 05:00] VITALS: BP 104/77
[2021-04-09 05:58] LABS: Basophils # (auto) 0.1 10 ^3/uL (0-0.2); Basophils % (auto) 0.9 % (0.0-2.0); Eosinophils # (auto) 0.2 10 ^3/uL (0-0.8); Eosinophils % (auto) 2.8 % (0.0-7.0); Hematocrit 28.2 % (41.0-53.0); Hemoglobin 9.6 g/dL (13.5-17.5); Lymphocytes # (auto) 0.7 10 ^3/uL (0.4-5.4); Lymphocytes % (auto) 11.5 % (10.0-50.0); Mean Corpuscular Hemoglobin 31.9 pg (28.0-32.0); Mean Corpuscular Hgb Conc. 34.1 g/dL (32.0-36.0); Mean Corpuscular Volume 93.6 fL (80.0-100.0); Monocytes # (auto) 0.4 10 ^3/uL (0-1.3); Monocytes % (auto) 6.6 % (0.0-12.0); Neutrophils # (auto) 4.8 10 ^3/uL (1.6-8.6); Neutrophils % (auto) 78.2 % (37.0-80.0); Red Blood Cells 3.01 10^6/uL (4.5-5.90); Red Cell Distribution Width 17.1 % (11.8-14.3); White Blood Cell 6.1 10^3/uL (4.4-10.8)
[2021-04-09] MEDS: SODIUM CHLOR 0.9% PF (SALINE LOCK) 10ML VIAL/SYR IV SCH ×3 (06:00→22:12)
[2021-04-09 06:12] LABS: Albumin 2.9 g/dL (3.4-5.0); Calcium 8.9 mg/dL (8.5-10.1)
[2021-04-09 06:23] LABS: Bilirubin, Total 0.6 mg/dL (0.2-1.0); Total Protein 7.4 g/dL (6.4-8.2)
[2021-04-09 09:02] VITALS: BP 94/68
[2021-04-09] MEDS: FAMOTIDINE (10MG/ML) 2ML VL IV SCH ×2 (09:57→22:12)
[2021-04-09] MEDS: MULTIPLE VITAMIN TAB PO SCH (09:58)
[2021-04-09] MEDS: ASPirin 81 mg TAB PO SCH (09:58)
[2021-04-09] MEDS: ASCORBIC ACID 500 MG TAB PO SCH ×2 (09:58→22:12)
[2021-04-09] MEDS: ZINC SULFATE 220mg CAP or TAB PO SCH (09:58)
[2021-04-09 10:15] LABS: Magnesium 1.7 mg/dL (1.6-2.6); Phosphorus 6.1 mg/dL (2.5-4.90)
[2021-04-09 11:03] LABS: Protein, Urine 29.5 mg/dL (0.0-11.9)
[2021-04-09] MEDS ORDERED: SODIUM BICARBONATE 50ML VIAL 50 ML in D5W 5% 1,000 ML IV ONE (11:15)
[2021-04-09 13:05] VITALS: BP 100/61
[2021-04-09] MEDS ORDERED: SODIUM CHLORIDE 0.9% 1,000 ML IV ONE (16:45)
[2021-04-09 17:06] VITALS: BP 98/65
[2021-04-09] MEDS: TAMSULOSIN HYDROCHLORIDE 0.4 MG CAP PO SCH (18:08)
[2021-04-09 21:38] VITALS: BP 97/75
[2021-04-09] MEDS: cefTRIAXone 1GM/50ML D5W 50 ML IV SCH (22:12)
[2021-04-10 05:41] VITALS: BP 96/56
[2021-04-10 05:42] LABS: Calcium 8.9 mg/dL (8.5-10.1); Potassium 3.4 mmol/L (3.5-5.1)
[2021-04-10 05:47] LABS: BUN/Creatinine Ratio 22.6
[2021-04-10] MEDS: SODIUM CHLOR 0.9% PF (SALINE LOCK) 10ML VIAL/SYR IV SCH ×3 (06:28→20:58)
[2021-04-10] MEDS ORDERED: SODIUM BICARBONATE 50ML VIAL 75 ML in SOD CHL 0.45% 1,000 ML IV ONE ×2 (08:15→08:45)
[2021-04-10] MEDS ORDERED: DOPamine 1600MCG/ML D5W 250 ML IV SCH (08:30)
[2021-04-10 09:00] VITALS: BP 85/60
[2021-04-10] MEDS: ZINC SULFATE 220mg CAP or TAB PO SCH (10:04)
[2021-04-10] MEDS: ASCORBIC ACID 500 MG TAB PO SCH ×2 (10:04→20:58)
[2021-04-10] MEDS: MULTIPLE VITAMIN TAB PO SCH (10:04)
[2021-04-10] MEDS: FAMOTIDINE (10MG/ML) 2ML VL IV SCH ×2 (10:04→20:58)
[2021-04-10] MEDS: ASPirin 81 mg TAB PO SCH (10:04)
[2021-04-10 11:47] VITALS: BP 96/66
[2021-04-10] MEDS: SEVELAMER 800 MG TAB PO SCH ×2 (12:08→18:01)
[2021-04-10 13:00] VITALS: BP 103/65
[2021-04-10 17:00] VITALS: BP 105/59
[2021-04-10] MEDS: TAMSULOSIN HYDROCHLORIDE 0.4 MG CAP PO SCH (18:01)
[2021-04-10 20:00] VITALS: BP 91/58
[2021-04-10] MEDS: cefTRIAXone 1GM/50ML D5W 50 ML IV SCH (20:58)
[2021-04-11 05:00] VITALS: BP 90/60
[2021-04-11 05:34] LABS: Basophils # (auto) 0 10 ^3/uL (0-0.2); Basophils % (auto) 0.7 % (0.0-2.0); Eosinophils # (auto) 0.1 10 ^3/uL (0-0.8); Eosinophils % (auto) 1.9 % (0.0-7.0); Hematocrit 26.7 % (41.0-53.0); Hemoglobin 9.1 g/dL (13.5-17.5); Lymphocytes # (auto) 0.5 10 ^3/uL (0.4-5.4); Lymphocytes % (auto) 10.8 % (10.0-50.0); Mean Corpuscular Hemoglobin 31.8 pg (28.0-32.0); Mean Corpuscular Hgb Conc. 34.1 g/dL (32.0-36.0); Mean Corpuscular Volume 93.4 fL (80.0-100.0); Monocytes # (auto) 0.4 10 ^3/uL (0-1.3); Monocytes % (auto) 8.3 % (0.0-12.0); Neutrophils # (auto) 3.9 10 ^3/uL (1.6-8.6); Neutrophils % (auto) 78.3 % (37.0-80.0); Red Blood Cells 2.85 10^6/uL (4.5-5.90); Red Cell Distribution Width 17.2 % (11.8-14.3)
[2021-04-11] MEDS: SODIUM CHLOR 0.9% PF (SALINE LOCK) 10ML VIAL/SYR IV SCH ×3 (05:39→21:21)
[2021-04-11 05:54] LABS: Potassium 3.5 mmol/L (3.5-5.1)
[2021-04-11 06:05] LABS: BUN/Creatinine Ratio 22.4
[2021-04-11] MEDS: SEVELAMER 800 MG TAB PO SCH ×3 (08:00→18:29)
[2021-04-11 09:00] VITALS: BP 86/57
[2021-04-11] MEDS: FAMOTIDINE (10MG/ML) 2ML VL IV SCH ×2 (10:05→21:20)
[2021-04-11] MEDS: MULTIPLE VITAMIN TAB PO SCH (10:05)
[2021-04-11] MEDS: ASPirin 81 mg TAB PO SCH (10:05)
[2021-04-11] MEDS: ZINC SULFATE 220mg CAP or TAB PO SCH (10:05)
[2021-04-11] MEDS: ASCORBIC ACID 500 MG TAB PO SCH ×2 (10:05→21:21)
[2021-04-11 13:00] VITALS: BP 112/61
[2021-04-11] MEDS ORDERED: SODIUM CHLORIDE 0.9% 1,000 ML IV ONE (13:15)
[2021-04-11] MEDS: DOBUTamine 1000MCG/ML 250 ML IV SCH (14:21)
[2021-04-11 17:00] VITALS: BP 96/47
[2021-04-11] MEDS: TAMSULOSIN HYDROCHLORIDE 0.4 MG CAP PO SCH (18:29)
[2021-04-11] MEDS: cefTRIAXone 1GM/50ML D5W 50 ML IV SCH (21:20)
[2021-04-11 22:00] VITALS: BP 98/60
[2021-04-12 05:00] VITALS: BP 94/59
[2021-04-12] MEDS: SODIUM CHLOR 0.9% PF (SALINE LOCK) 10ML VIAL/SYR IV SCH ×3 (05:52→22:43)
[2021-04-12 09:00] VITALS: BP 93/62
[2021-04-12] MEDS: SEVELAMER 800 MG TAB PO SCH ×3 (09:00→18:34)
[2021-04-12] MEDS: FAMOTIDINE (10MG/ML) 2ML VL IV SCH ×2 (09:00→22:43)
[2021-04-12] MEDS: ASPirin 81 mg TAB PO SCH (09:01)
[2021-04-12] MEDS: ASCORBIC ACID 500 MG TAB PO SCH ×2 (09:01→22:43)
[2021-04-12] MEDS: MULTIPLE VITAMIN TAB PO SCH (09:01)
[2021-04-12] MEDS: ZINC SULFATE 220mg CAP or TAB PO SCH (09:01)
[2021-04-12 12:00] VITALS: BP 97/63
[2021-04-12] MEDS: DOBUTamine 1000MCG/ML 250 ML IV SCH (12:27)
[2021-04-12 16:47] VITALS: BP 106/61
[2021-04-12] MEDS: TAMSULOSIN HYDROCHLORIDE 0.4 MG CAP PO SCH (18:34)
[2021-04-12 22:00] VITALS: BP 103/59
[2021-04-12] MEDS: cefTRIAXone 1GM/50ML D5W 50 ML IV SCH (22:43)
[2021-04-13 05:00] VITALS: BP 104/68
[2021-04-13] MEDS: SODIUM CHLOR 0.9% PF (SALINE LOCK) 10ML VIAL/SYR IV SCH ×3 (05:31→21:43)
[2021-04-13] MEDS: ZINC SULFATE 220mg CAP or TAB PO SCH (08:48)
[2021-04-13] MEDS: MULTIPLE VITAMIN TAB PO SCH (08:48)
[2021-04-13] MEDS: ASPirin 81 mg TAB PO SCH (08:48)
[2021-04-13] MEDS: SEVELAMER 800 MG TAB PO SCH ×3 (08:48→17:10)
[2021-04-13] MEDS: FAMOTIDINE (10MG/ML) 2ML VL IV SCH ×2 (08:48→21:43)
[2021-04-13] MEDS: ASCORBIC ACID 500 MG TAB PO SCH ×2 (08:49→21:43)
[2021-04-13 09:00] VITALS: BP 102/69
[2021-04-13] MEDS: DOBUTamine 1000MCG/ML 250 ML IV SCH (11:58)
[2021-04-13 13:00] VITALS: BP 99/69
[2021-04-13 15:37] LABS: Basophils # (auto) 0 10 ^3/uL (0-0.2); Eosinophils # (auto) 0.1 10 ^3/uL (0-0.8); Lymphocytes # (auto) 0.5 10 ^3/uL (0.4-5.4)
[2021-04-13 15:40] LABS: Basophils % (auto) 0.8 % (0.0-2.0); Eosinophils % (auto) 2.5 % (0.0-7.0); Hematocrit 23.4 % (41.0-53.0); Lymphocytes % (auto) 12.3 % (10.0-50.0); Mean Corpuscular Hemoglobin 31.8 pg (28.0-32.0); Mean Corpuscular Hgb Conc. 34.1 g/dL (32.0-36.0); Mean Corpuscular Volume 93.5 fL (80.0-100.0); Monocytes # (auto) 0.3 10 ^3/uL (0-1.3); Monocytes % (auto) 8.7 % (0.0-12.0); Neutrophils # (auto) 2.8 10 ^3/uL (1.6-8.6); Neutrophils % (auto) 75.7 % (37.0-80.0); Red Cell Distribution Width 17.9 % (11.8-14.3); White Blood Cell 3.7 10^3/uL (4.4-10.8)
[2021-04-13 15:51] LABS: Albumin 2.5 g/dL (3.4-5.0); Potassium 3.9 mmol/L (3.5-5.1)
[2021-04-13 15:54] LABS: BUN/Creatinine Ratio 18.2; Bilirubin, Total 0.4 mg/dL (0.2-1.0); Total Protein 6.6 g/dL (6.4-8.2)
[2021-04-13 16:44] VITALS: BP 110/41
[2021-04-13] MEDS: TAMSULOSIN HYDROCHLORIDE 0.4 MG CAP PO SCH (17:10)
[2021-04-13] MEDS: cefTRIAXone 1GM/50ML D5W 50 ML IV SCH (21:43)
[2021-04-13 22:00] VITALS: BP 95/54
[2021-04-14] VITALS (8 sets, daily range): BP systolic 99–124; BP diastolic 61–79
[2021-04-14] MEDS: SODIUM CHLOR 0.9% PF (SALINE LOCK) 10ML VIAL/SYR IV SCH ×3 (05:34→21:24)
[2021-04-14] MEDS: SEVELAMER 800 MG TAB PO SCH ×3 (08:00→18:20)
[2021-04-14] MEDS: ZINC SULFATE 220mg CAP or TAB PO SCH (11:02)
[2021-04-14] MEDS: FAMOTIDINE (10MG/ML) 2ML VL IV SCH ×2 (11:03→21:24)
[2021-04-14] MEDS: ASPirin 81 mg TAB PO SCH (11:03)
[2021-04-14] MEDS: MULTIPLE VITAMIN TAB PO SCH (11:03)
[2021-04-14] MEDS: ASCORBIC ACID 500 MG TAB PO SCH ×2 (11:04→21:24)
[2021-04-14] MEDS: DOBUTamine 1000MCG/ML 250 ML IV SCH (11:22)
[2021-04-14] MEDS ORDERED: SODIUM CHLORIDE 0.9% 500 ML IV ONE (17:00)
[2021-04-14] MEDS: TAMSULOSIN HYDROCHLORIDE 0.4 MG CAP PO SCH (18:20)
[2021-04-14] MEDS: LACTULOSE 20Gm/30ML SOLN PO SCH (21:24)
[2021-04-14] MEDS: cefTRIAXone 1GM/50ML D5W 50 ML IV SCH (23:52)
[2021-04-15] VITALS (9 sets, daily range): BP systolic 94–113; BP diastolic 50–73
[2021-04-15 02:42] LABS: Hematocrit 26.7 % (41.0-53.0); Hemoglobin 8.8 g/dL (13.5-17.5)
[2021-04-15] MEDS: SODIUM CHLOR 0.9% PF (SALINE LOCK) 10ML VIAL/SYR IV SCH ×3 (05:31→21:42)
[2021-04-15] MEDS: SEVELAMER 800 MG TAB PO SCH ×3 (07:49→18:19)
[2021-04-15] MEDS: FAMOTIDINE (10MG/ML) 2ML VL IV SCH (09:59)
[2021-04-15] MEDS: LACTULOSE 20Gm/30ML SOLN PO SCH ×2 (09:59→21:42)
[2021-04-15] MEDS: MULTIPLE VITAMIN TAB PO SCH (10:00)
[2021-04-15] MEDS: ASCORBIC ACID 500 MG TAB PO SCH ×2 (10:00→21:41)
[2021-04-15] MEDS: ASPirin 81 mg TAB PO SCH (10:00)
[2021-04-15] MEDS: ZINC SULFATE 220mg CAP or TAB PO SCH (10:01)
[2021-04-15] MEDS: DOBUTamine 1000MCG/ML 250 ML IV SCH (11:49)
[2021-04-15] MEDS: TAMSULOSIN HYDROCHLORIDE 0.4 MG CAP PO SCH (18:19)
[2021-04-15] MEDS ORDERED: MAGNESIUM CITRATE SOLUTION 300 ML BTL PO ONE (18:30)
[2021-04-15] MEDS: SODIUM CHLORIDE 0.9% 1,000 ML IV SCH (19:49)
[2021-04-15] MEDS ORDERED: EPOETIN ALFA-EPBX 10,000 UNIT/1ML VIAL SC ONE (20:00)
[2021-04-15] MEDS: cefTRIAXone 1GM/50ML D5W 50 ML IV SCH (21:41)
[2021-04-16 05:00] VITALS: BP 108/68
[2021-04-16] MEDS: SODIUM CHLOR 0.9% PF (SALINE LOCK) 10ML VIAL/SYR IV SCH ×3 (05:44→21:54)
[2021-04-16 07:15] LABS: Basophils # (auto) 0 10 ^3/uL (0-0.2); Basophils % (auto) 0.6 % (0.0-2.0); Eosinophils # (auto) 0.1 10 ^3/uL (0-0.8); Eosinophils % (auto) 2.4 % (0.0-7.0); Hematocrit 29.3 % (41.0-53.0); Hemoglobin 9.3 g/dL (13.5-17.5); Lymphocytes # (auto) 0.4 10 ^3/uL (0.4-5.4); Lymphocytes % (auto) 10.1 % (10.0-50.0); Mean Corpuscular Hemoglobin 31.9 pg (28.0-32.0); Mean Corpuscular Hgb Conc. 31.6 g/dL (32.0-36.0); Mean Corpuscular Volume 101.1 fL (80.0-100.0); Monocytes # (auto) 0.3 10 ^3/uL (0-1.3); Monocytes % (auto) 8.3 % (0.0-12.0); Neutrophils # (auto) 3.3 10 ^3/uL (1.6-8.6); Neutrophils % (auto) 78.6 % (37.0-80.0); Nucleated Red Blood Cells % 0.1 %; Red Cell Distribution Width 18.8 % (11.8-14.3); White Blood Cell 4.2 10^3/uL (4.4-10.8)
[2021-04-16 07:22] LABS: BUN/Creatinine Ratio 14.1; Potassium 3.5 mmol/L (3.5-5.1)
[2021-04-16 07:23] LABS: Calcium 9.2 mg/dL (8.5-10.1)
[2021-04-16 08:00] VITALS: BP 117/64
[2021-04-16] MEDS: DOBUTamine 1000MCG/ML 250 ML IV SCH (08:23)
[2021-04-16] MEDS: SEVELAMER 800 MG TAB PO SCH ×3 (08:23→18:00)
[2021-04-16] MEDS: SODIUM CHLORIDE 0.9% 1,000 ML IV SCH ×2 (08:24→21:50)
[2021-04-16] MEDS: LACTULOSE 20Gm/30ML SOLN PO SCH ×2 (10:31→21:54)
[2021-04-16] MEDS: FAMOTIDINE (10MG/ML) 2ML VL IV SCH (10:31)
[2021-04-16] MEDS: ASPirin 81 mg TAB PO SCH (10:31)
[2021-04-16] MEDS: ASCORBIC ACID 500 MG TAB PO SCH ×2 (10:32→21:54)
[2021-04-16] MEDS: MULTIPLE VITAMIN TAB PO SCH (10:32)
[2021-04-16] MEDS: ZINC SULFATE 220mg CAP or TAB PO SCH (10:32)
[2021-04-16 12:00] VITALS: BP 100/66
[2021-04-16 16:00] VITALS: BP 109/69
[2021-04-16] MEDS: TAMSULOSIN HYDROCHLORIDE 0.4 MG CAP PO SCH (17:59)
[2021-04-16] MEDS: cefTRIAXone 1GM/50ML D5W 50 ML IV SCH (21:54)
[2021-04-16 22:00] VITALS: BP 109/60
[2021-04-17 05:00] VITALS: BP 90/52
[2021-04-17] MEDS: SODIUM CHLOR 0.9% PF (SALINE LOCK) 10ML VIAL/SYR IV SCH ×3 (06:00→21:43)
[2021-04-17 08:00] VITALS: BP 102/61
[2021-04-17] MEDS: SEVELAMER 800 MG TAB PO SCH ×3 (08:40→17:29)
[2021-04-17] MEDS: DOBUTamine 1000MCG/ML 250 ML IV SCH (08:54)
[2021-04-17] MEDS: ASPirin 81 mg TAB PO SCH (09:56)
[2021-04-17] MEDS: MULTIPLE VITAMIN TAB PO SCH (09:56)
[2021-04-17] MEDS: LACTULOSE 20Gm/30ML SOLN PO SCH ×3 (09:56→21:58)
[2021-04-17] MEDS: FAMOTIDINE (10MG/ML) 2ML VL IV SCH (09:56)
[2021-04-17] MEDS: ZINC SULFATE 220mg CAP or TAB PO SCH (09:56)
[2021-04-17] MEDS: ASCORBIC ACID 500 MG TAB PO SCH ×2 (09:57→21:43)
[2021-04-17] MEDS: SODIUM CHLORIDE 0.9% 1,000 ML IV SCH ×2 (10:45→17:12)
[2021-04-17 12:00] VITALS: BP 132/60
[2021-04-17 16:00] VITALS: BP 105/79
[2021-04-17] MEDS: TAMSULOSIN HYDROCHLORIDE 0.4 MG CAP PO SCH (17:29)
[2021-04-17 18:05] LABS: BUN/Creatinine Ratio 11.8; Calcium 8.6 mg/dL (8.5-10.1); Potassium 3.5 mmol/L (3.5-5.1)
[2021-04-17 18:19] VITALS: BP 105/79
[2021-04-17] MEDS: cefTRIAXone 1GM/50ML D5W 50 ML IV SCH (21:43)
[2021-04-17 22:00] VITALS: BP 95/65
[2021-04-18] MEDS: DOBUTamine 1000MCG/ML 250 ML IV SCH ×2 (04:59→12:09)
[2021-04-18 05:00] VITALS: BP 115/77
[2021-04-18 05:47] LABS: Potassium 3.3 mmol/L (3.5-5.1)
[2021-04-18 05:53] LABS: BUN/Creatinine Ratio 11.9; Calcium 7.7 mg/dL (8.5-10.1)
[2021-04-18] MEDS: SODIUM CHLOR 0.9% PF (SALINE LOCK) 10ML VIAL/SYR IV SCH ×3 (06:00→23:52)
[2021-04-18 08:00] VITALS: BP 112/74
[2021-04-18] MEDS: SEVELAMER 800 MG TAB PO SCH ×3 (08:27→18:01)
[2021-04-18] MEDS: ASPirin 81 mg TAB PO SCH (09:47)
[2021-04-18] MEDS: LACTULOSE 20Gm/30ML SOLN PO SCH ×2 (09:47→22:00)
[2021-04-18] MEDS: FAMOTIDINE (10MG/ML) 2ML VL IV SCH (09:47)
[2021-04-18] MEDS: MULTIPLE VITAMIN TAB PO SCH (09:48)
[2021-04-18] MEDS: ASCORBIC ACID 500 MG TAB PO SCH ×2 (09:48→23:53)
[2021-04-18] MEDS: ZINC SULFATE 220mg CAP or TAB PO SCH (09:48)
[2021-04-18 12:00] VITALS: BP 106/67
[2021-04-18 16:00] VITALS: BP 110/72
[2021-04-18] MEDS: SODIUM CHLORIDE 0.9% 1,000 ML IV SCH (18:00)
[2021-04-18] MEDS: TAMSULOSIN HYDROCHLORIDE 0.4 MG CAP PO SCH (18:01)
[2021-04-18 18:43] VITALS: BP 110/72
[2021-04-18 22:00] VITALS: BP 107/69
[2021-04-18] MEDS: cefTRIAXone 1GM/50ML D5W 50 ML IV SCH (23:51)
[2021-04-19 05:00] VITALS: BP 104/67
[2021-04-19] MEDS: SODIUM CHLOR 0.9% PF (SALINE LOCK) 10ML VIAL/SYR IV SCH (05:50)
[2021-04-19 08:00] VITALS: BP 99/66
[2021-04-19] MEDS ORDERED: POTASSIUM CHL 20 Meq TABLET PO ONE (08:30)
[2021-04-19] MEDS: SEVELAMER 800 MG TAB PO SCH (08:34)
[2021-04-19 09:00] VITALS: BP 99/66
== END 2021-04-19 10:20 | disposition home health service (06) | DRG 682 ==
LOC: EDBD 17:31 → ER 17:31 → TELE 21:38 → TELE-WESTW 23:39
PROVIDERS: ADMIT Internal Medicine Cardiovascular Disease; ATTEND Internal Medicine Cardiovascular Disease
PROC: 30233N1 Transfusion of Nonautologous Red Blood Cells into Peripheral Vein, Percutaneous Approach (ICD-10-PCS; principal; 2021-04-14)
DX: N17.9 Acute kidney failure, unspecified (principal); I50.23 Acute on chronic systolic (congestive) heart failure; I13.0 Hypertensive heart and chronic kidney disease with heart failure and stage 1 through stage 4 chronic kidney disease, or unspecified chronic kidney disease; D68.59 Other primary thrombophilia; R64 Cachexia; E44.0 Moderate protein-calorie malnutrition; Z20.822 Contact with and (suspected) exposure to COVID-19; I25.5 Ischemic cardiomyopathy; E78.5 Hyperlipidemia, unspecified; N18.32 Chronic kidney disease, stage 3b; E83.39 Other disorders of phosphorus metabolism; D69.6 Thrombocytopenia, unspecified; E83.42 Hypomagnesemia; E86.9 Volume depletion, unspecified; M19.90 Unspecified osteoarthritis, unspecified site; N40.0 Benign prostatic hyperplasia without lower urinary tract symptoms; D64.9 Anemia, unspecified; Z66 Do not resuscitate; Z80.0 Family history of malignant neoplasm of digestive organs; I25.2 Old myocardial infarction; Z80.1 Family history of malignant neoplasm of trachea, bronchus and lung; Z80.3 Family history of malignant neoplasm of breast; Z80.42 Family history of malignant neoplasm of prostate; Z80.8 Family history of malignant neoplasm of other organs or systems; Z81.8 Family history of other mental and behavioral disorders; Z82.0 Family history of epilepsy and other diseases of the nervous system; Z82.3 Family history of stroke; Z82.49 Family history of ischemic heart disease and other diseases of the circulatory system; Z82.5 Family history of asthma and other chronic lower respiratory diseases; Z82.62 Family history of osteoporosis; Z83.3 Family history of diabetes mellitus; Z91.041 Radiographic dye allergy status; Z68.23 Body mass index [BMI] 23.0-23.9, adult
CPT/HCPCS: 36415; 71045; 74176; 76775; 80048; 80053; 81001; 82570; 83735; 83880; 84100; 84156; 84300; 84484; 85014; 85018; 85025; 85610; 85730; 86850; 86900; 86901; 86920; 87086; 87426; 93005; 96365; 96367; 97110; 97116; 97530; G0378; J0696; J2405; J3490

== ENCOUNTER → 2021-04-28 | Outpatient (CLI) | payer MEDICARE, MEDICAID ==
[~2021-04-28] MED LIST changes: +ALLO300T2; -ALLO300T2 PO; +TAMS0.4C36 OR; -TAMS0.4C36 PO
[2021-04-28 15:29] LABS: BUN/Creatinine Ratio 16.1; Calcium 9.4 mg/dL (8.5-10.1); Potassium 4.7 mmol/L (3.5-5.1)
== END | disposition home or self-care (01) ==
LOC: Rad HDHVI 14:07
PROVIDERS: ATTEND Internal Medicine Cardiovascular Disease
DX: I11.9 Hypertensive heart disease without heart failure (principal); I70.0 Atherosclerosis of aorta; M47.814 Spondylosis without myelopathy or radiculopathy, thoracic region
CPT/HCPCS: 36415; 71046; 80048

== ENCOUNTER 2021-06-28 12:18 | Inpatient (IN) | payer MEDICARE, MEDICAID ==
[~2021-06-28] VITALS: Ht 170.2 cm; Wt 84.9 kg
[~2021-06-28 12:18] MED LIST changes: -ALLO300T2; +ALLO300T2 PO; -TAMS0.4C36 OR; +TAMS0.4C36 PO
[2021-06-28 12:58] LABS: Basophils # (auto) 0 10 ^3/uL (0-0.2); Basophils % (auto) 0.6 % (0.0-2.0); Eosinophils # (auto) 0 10 ^3/uL (0-0.8); Eosinophils % (auto) 0.2 % (0.0-7.0); Lymphocytes # (auto) 0.5 10 ^3/uL (0.4-5.4); Lymphocytes % (auto) 6.2 % (10.0-50.0); Mean Corpuscular Hemoglobin 33.3 pg (28.0-32.0); Mean Corpuscular Hgb Conc. 33.5 g/dL (32.0-36.0); Mean Corpuscular Volume 99.3 fL (80.0-100.0); Monocytes # (auto) 0.6 10 ^3/uL (0-1.3); Monocytes % (auto) 8.6 % (0.0-12.0); Neutrophils # (auto) 6.2 10 ^3/uL (1.6-8.6); Neutrophils % (auto) 84.4 % (37.0-80.0); Nucleated Red Blood Cells % 0.1 %; Red Blood Cells 2.72 10^6/uL (4.5-5.90); Red Cell Distribution Width 16.2 % (11.8-14.3); White Blood Cell 7.3 10^3/uL (4.4-10.8)
[2021-06-28] MEDS ORDERED: SODIUM CHLORIDE 0.9% 1,000 ML IV ONE (13:30)
[2021-06-28 13:46] LABS: Albumin 2.3 g/dL (3.4-5.0); Calcium 9.7 mg/dL (8.5-10.1); Potassium 3.5 mmol/L (3.5-5.1)
[2021-06-28 13:51] LABS: Bilirubin, Total 0.6 mg/dL (0.2-1.0); Total Protein 6.7 g/dL (6.4-8.2)
[2021-06-28] MEDS ORDERED: cefTRIAXone 1GM/50ML D5W 50 ML IV ONE (16:15)
[2021-06-28] MEDS ORDERED: MORPHINE SULFATE INJECTION 2 MG/ML SYRG IV PRN ×3 (16:30→18:15)
[2021-06-28] MEDS ORDERED: NITROGLYCERIN 0.4 MG SL TAB SL PRN ×2 (16:30→18:15)
[2021-06-28] MEDS ORDERED: B-CO-5 PO (16:39)
[2021-06-28] MEDS ORDERED: CHOL100029 PO (16:39)
[2021-06-28] MEDS ORDERED: BUME2TAB5 PO (16:39)
[2021-06-28] MEDS ORDERED: CITA-244 PO (16:39)
[2021-06-28] MEDS ORDERED: CYAN100088 PO (16:41)
[2021-06-28] MEDS ORDERED: ASCO100076 PO (16:45)
[2021-06-28] MEDS ORDERED: FER325T PO (16:45)
[2021-06-28] MEDS ORDERED: MAGN500T17 PO (16:45)
[2021-06-28] MEDS ORDERED: APIX2.5T PO (16:46)
[2021-06-28] MEDS ORDERED: POM (16:47)
[2021-06-28 16:53] LABS: Urine Bacteria MANY /hpf (None Seen); Urine Blood 3+ /uL (Negative); Urine Mucus FEW (None Seen); Urine WBC 2406 /hpf (0 - 3); Urine WBC Clumps PRESENT /hpf (None Seen)
[2021-06-28 17:44] LABS: INR 1.13 (0.9-1.15); Partial Thromboplastin Time 34.8 sec (23.6-33.0)
[2021-06-28 17:51] LABS: Magnesium 3.7 mg/dL (1.6-2.6); Phosphorus 4.7 mg/dL (2.5-4.90)
[2021-06-28] MEDS ORDERED: DOCUSATE SOD 100 MG CAP PO PRN (18:15)
[2021-06-28] MEDS ORDERED: METOCLOPRAMIDE HCL 5MG/ml INJ 2ml VIAL IV PRN (18:15)
[2021-06-28] MEDS ORDERED: CHOLECALCIFEROL (VITD3) 2,000 UNIT CAP/TAB PO ONE (18:15)
[2021-06-28] MEDS ORDERED: BUMETANIDE 1 MG TAB PO ONE (18:15)
[2021-06-28] MEDS ORDERED: B-COMPLEX W/ C & FOLIC ACID(NEPHROVITE TAB) PO ONE (18:15)
[2021-06-28] MEDS ORDERED: CYANOCOBALAMIN 500 MCG TAB PO ONE (18:15)
[2021-06-28] MEDS ORDERED: ACETAMINOPHEN 325 MG TAB PO PRN (18:15)
[2021-06-28] MEDS ORDERED: LORazepam 0.5 MG TAB PO PRN (18:15)
[2021-06-28] MEDS ORDERED: ASCORBIC ACID 500 MG TAB PO ONE (18:15)
[2021-06-28] MEDS ORDERED: ALUM & MAG HYDROX-SIMETH LIQ(MAALOX) 30 ML PO PRN (18:15)
[2021-06-28] MEDS ORDERED: HYDROcodone-ACET 5/325MG TAB PO PRN (18:15)
[2021-06-28 21:06] LABS: INR 1.14 (0.9-1.15)
[2021-06-28] MEDS ORDERED: SODIUM CHLORIDE 0.9% 250 ML IV ONE (21:45)
[2021-06-28 22:36] LABS: Basophils # (auto) 0 10 ^3/uL (0-0.2); Basophils % (auto) 0.4 % (0.0-2.0); Eosinophils # (auto) 0 10 ^3/uL (0-0.8); Eosinophils % (auto) 0.1 % (0.0-7.0); Hematocrit 26.5 % (41.0-53.0); Hemoglobin 8.8 g/dL (13.5-17.5); Lymphocytes # (auto) 0.4 10 ^3/uL (0.4-5.4); Lymphocytes % (auto) 5.4 % (10.0-50.0); Mean Corpuscular Hemoglobin 32.9 pg (28.0-32.0); Mean Corpuscular Hgb Conc. 33.3 g/dL (32.0-36.0); Mean Corpuscular Volume 98.7 fL (80.0-100.0); Monocytes # (auto) 0.7 10 ^3/uL (0-1.3); Monocytes % (auto) 9.2 % (0.0-12.0); Neutrophils # (auto) 6.1 10 ^3/uL (1.6-8.6); Neutrophils % (auto) 84.9 % (37.0-80.0); Nucleated Red Blood Cells % 0.2 %; Red Blood Cells 2.68 10^6/uL (4.5-5.90); Red Cell Distribution Width 15.7 % (11.8-14.3); White Blood Cell 7.2 10^3/uL (4.4-10.8)
[2021-06-28] MEDS: MAGNESIUM OXIDE 400 MG TAB PO SCH (23:34)
[2021-06-29] MEDS: DOBUTamine 1000MCG/ML 250 ML IV SCH ×3 (02:45→21:28)
[2021-06-29] MEDS ORDERED: BUMETANIDE 1 MG TAB PO SCH (06:00)
[2021-06-29 09:07] LABS: BUN/Creatinine Ratio 22.7; Calcium 9.4 mg/dL (8.5-10.1); Potassium 3.5 mmol/L (3.5-5.1)
[2021-06-29 09:15] LABS: Amphetamine Screen, Urine NEGATIVE (NEGATIVE); Barbiturate Scree,Urine NEGATIVE (NEGATIVE); Benzodiazephine Screen, Urine NEGATIVE (NEGATIVE); Cannabinoid Screen, Urine NEGATIVE (NEGATIVE); Cocaine Screen, Urine NEGATIVE (NEGATIVE); Opiate Scree,Urine NEGATIVE (NEGATIVE); Phencyclidine Screen, Urine NEGATIVE (NEGATIVE)
[2021-06-29] MEDS ORDERED: LACTATED RINGER'S 1,000 ML IV ONE (09:30)
[2021-06-29] MEDS ORDERED: ALBUMIN 25% 100 ML IV ONE (09:30)
[2021-06-29] MEDS: METOPROLOL SUCCINATE XL 50 MG TAB PO SCH (10:00)
[2021-06-29] MEDS: ALLOPURINOL 300 MG TAB PO SCH (10:14)
[2021-06-29] MEDS: ASCORBIC ACID 500 MG TAB PO SCH ×2 (10:14→21:42)
[2021-06-29] MEDS: CITALOPRAM HYDROBR 20 MG TAB PO SCH (10:15)
[2021-06-29] MEDS: B-COMPLEX W/ C & FOLIC ACID(NEPHROVITE TAB) PO SCH (10:15)
[2021-06-29] MEDS: CHOLECALCIFEROL (VITD3) 2,000 UNIT CAP/TAB PO SCH (10:15)
[2021-06-29] MEDS: CYANOCOBALAMIN 500 MCG TAB PO SCH (10:16)
[2021-06-29] MEDS: MAGNESIUM OXIDE 400 MG TAB PO SCH (10:16)
[2021-06-29] MEDS: cefTRIAXone 1GM/50ML D5W 50 ML IV SCH (10:29)
[2021-06-29] MEDS: TAMSULOSIN HYDROCHLORIDE 0.4 MG CAP PO SCH (18:33)
[2021-06-29] MEDS: SODIUM CHLORIDE 0.9% 1,000 ML IV SCH (20:32)
[2021-06-29] MEDS: DOCUSATE SOD 100 MG CAP PO SCH (21:42)
[2021-06-29 22:40] LABS: Basophils # (auto) 0 10 ^3/uL (0-0.2); Eosinophils # (auto) 0 10 ^3/uL (0-0.8); Lymphocytes # (auto) 0.2 10 ^3/uL (0.4-5.4); Mean Corpuscular Hemoglobin 32.7 pg (28.0-32.0); Monocytes # (auto) 0.5 10 ^3/uL (0-1.3); White Blood Cell 3.6 10^3/uL (4.4-10.8)
[2021-06-29 22:42] LABS: Basophils % (auto) 0.3 % (0.0-2.0); Eosinophils % (auto) 0.3 % (0.0-7.0); Hematocrit 24.6 % (41.0-53.0); Hemoglobin 8.1 g/dL (13.5-17.5); Lymphocytes % (auto) 6.8 % (10.0-50.0); Mean Corpuscular Hgb Conc. 33.2 g/dL (32.0-36.0); Mean Corpuscular Volume 98.7 fL (80.0-100.0); Monocytes % (auto) 13.8 % (0.0-12.0); Neutrophils # (auto) 2.9 10 ^3/uL (1.6-8.6); Neutrophils % (auto) 78.8 % (37.0-80.0); Nucleated Red Blood Cells % 0.1 %; Red Blood Cells 2.49 10^6/uL (4.5-5.90); Red Cell Distribution Width 15.7 % (11.8-14.3)
[2021-06-29] MEDS ORDERED: VANCOMYCIN PER PHARMACY 0 MG IV SCH (22:45)
[2021-06-29] MEDS ORDERED: VANCOMYCIN 1GM/250ML 250 ML IV ONE (23:00)
[2021-06-29 23:14] VITALS: BP 105/66
[2021-06-29 23:52] VITALS: BP 105/66
[2021-06-30 05:00] VITALS: BP 105/62
[2021-06-30 06:15] LABS: Mean Corpuscular Volume 99.3 fL (80.0-100.0)
[2021-06-30 06:26] LABS: Hematocrit 23.4 % (41.0-53.0); Hemoglobin 8.1 g/dL (13.5-17.5); Mean Corpuscular Hemoglobin 34.2 pg (28.0-32.0); Mean Corpuscular Hgb Conc. 34.4 g/dL (32.0-36.0); Red Blood Cells 2.36 10^6/uL (4.5-5.90); Red Cell Distribution Width 15.7 % (11.8-14.3)
[2021-06-30 06:36] LABS: Basophils % (manual) 0 (0.0-2.0); Blast Cells 0; Metamyelocytes % 0; Myelocytes % 0; Promyelocytes % 0; Reactive Lymphocytes 0
[2021-06-30 06:43] LABS: BUN/Creatinine Ratio 22.2; Calcium 9.4 mg/dL (8.5-10.1)
[2021-06-30] MEDS: DOBUTamine 1000MCG/ML 250 ML IV SCH (07:44)
[2021-06-30 08:15] VITALS: BP 106/65
[2021-06-30 08:16] LABS: Potassium 2.7 mmol/L (3.5-5.1)
[2021-06-30] MEDS: cefTRIAXone 1GM/50ML D5W 50 ML IV SCH (08:43)
[2021-06-30 09:00] VITALS: BP 106/65
[2021-06-30] MEDS ORDERED: POTASSIUM EFFERVESENT TAB 25 MEQ PO ONE (09:45)
[2021-06-30] MEDS: DOCUSATE SOD 100 MG CAP PO SCH ×2 (10:33→22:00)
[2021-06-30] MEDS: B-COMPLEX W/ C & FOLIC ACID(NEPHROVITE TAB) PO SCH (10:33)
[2021-06-30] MEDS: CITALOPRAM HYDROBR 20 MG TAB PO SCH (10:33)
[2021-06-30 10:34] LABS: Band Neutrophils % (manual) 3; Eosinophils % (manual) 2 (0-7); Lymphocytes % (manual) 6 (10.0-50.0); Monocytes % (manual) 12 (0-12)
[2021-06-30] MEDS: METOPROLOL SUCCINATE XL 50 MG TAB PO SCH (10:34)
[2021-06-30] MEDS: ASCORBIC ACID 500 MG TAB PO SCH ×2 (10:34→22:25)
[2021-06-30] MEDS: CYANOCOBALAMIN 500 MCG TAB PO SCH (10:34)
[2021-06-30] MEDS: CHOLECALCIFEROL (VITD3) 2,000 UNIT CAP/TAB PO SCH (10:35)
[2021-06-30] MEDS: ALLOPURINOL 300 MG TAB PO SCH (10:35)
[2021-06-30] MEDS: SODIUM CHLORIDE 0.9% 1,000 ML IV SCH (12:13)
[2021-06-30 13:00] VITALS: BP 91/58
[2021-06-30] MEDS: POTASSIUM CHL 20MEQ/50ML 50 ML IV SCH ×3 (15:38→19:30)
[2021-06-30 16:39] VITALS: BP 85/53
[2021-06-30] MEDS: TAMSULOSIN HYDROCHLORIDE 0.4 MG CAP PO SCH (19:31)
[2021-06-30 22:00] VITALS: BP 80/57
[2021-06-30] MEDS: MUPIROCIN 2% OINT 15gm or 22gm EACHNOSTRI SCH (23:00)
[2021-07-01] VITALS (13 sets, daily range): BP systolic 80–93; BP diastolic 48–67
[2021-07-01 05:16] LABS: Hemoglobin 7.4 g/dL (13.5-17.5); Mean Corpuscular Hemoglobin 32.9 pg (28.0-32.0); Mean Corpuscular Hgb Conc. 33.5 g/dL (32.0-36.0); Mean Corpuscular Volume 98.1 fL (80.0-100.0); Red Blood Cells 2.25 10^6/uL (4.5-5.90); Red Cell Distribution Width 15.8 % (11.8-14.3); White Blood Cell 3.6 10^3/uL (4.4-10.8)
[2021-07-01 05:21] LABS: Basophils % (manual) 0 (0.0-2.0); Blast Cells 0; Eosinophils % (manual) 0 (0-7); Promyelocytes % 0; Reactive Lymphocytes 0
[2021-07-01] MEDS: SODIUM CHLORIDE 0.9% 1,000 ML IV SCH ×2 (05:21→22:25)
[2021-07-01 05:29] LABS: BUN/Creatinine Ratio 23.6; Calcium 9.1 mg/dL (8.5-10.1); Potassium 4.4 mmol/L (3.5-5.1)
[2021-07-01 05:58] LABS: Band Neutrophils % (manual) 15; Lymphocytes % (manual) 11 (10.0-50.0); Metamyelocytes % 1; Monocytes % (manual) 4 (0-12); Myelocytes % 1
[2021-07-01] MEDS: METOPROLOL SUCCINATE XL 50 MG TAB PO SCH (10:00)
[2021-07-01] MEDS: cefTRIAXone 1GM/50ML D5W 50 ML IV SCH (10:00)
[2021-07-01] MEDS: DOCUSATE SOD 100 MG CAP PO SCH ×2 (10:00→22:00)
[2021-07-01] MEDS: CITALOPRAM HYDROBR 20 MG TAB PO SCH (10:55)
[2021-07-01] MEDS: MUPIROCIN 2% OINT 15gm or 22gm EACHNOSTRI SCH ×2 (10:55→22:31)
[2021-07-01] MEDS: B-COMPLEX W/ C & FOLIC ACID(NEPHROVITE TAB) PO SCH (10:58)
[2021-07-01] MEDS: ASCORBIC ACID 500 MG TAB PO SCH (10:59)
[2021-07-01] MEDS: CHOLECALCIFEROL (VITD3) 2,000 UNIT CAP/TAB PO SCH (10:59)
[2021-07-01] MEDS: CYANOCOBALAMIN 500 MCG TAB PO SCH (10:59)
[2021-07-01] MEDS: ALLOPURINOL 300 MG TAB PO SCH (10:59)
[2021-07-01] MEDS ORDERED: VANCOMYCIN 1GM/250ML 250 ML IV ONE (12:30)
[2021-07-01 16:55] LABS: % Iron Saturation 62.8 % (20-55)
[2021-07-01] MEDS: TAMSULOSIN HYDROCHLORIDE 0.4 MG CAP PO SCH (17:45)
[2021-07-01 20:18] LABS: Ferritin > 1650.0 ng/mL (10-322)
[2021-07-02 05:00] VITALS: BP 98/65
[2021-07-02 05:25] LABS: Basophils # (auto) 0 10 ^3/uL (0-0.2); Basophils % (auto) 0.6 % (0.0-2.0); Eosinophils # (auto) 0.1 10 ^3/uL (0-0.8); Monocytes # (auto) 0.5 10 ^3/uL (0-1.3); Neutrophils # (auto) 2.8 10 ^3/uL (1.6-8.6); White Blood Cell 3.8 10^3/uL (4.4-10.8)
[2021-07-02 05:27] LABS: Eosinophils % (auto) 1.5 % (0.0-7.0); Hematocrit 27.2 % (41.0-53.0); Hemoglobin 9.4 g/dL (13.5-17.5); Lymphocytes # (auto) 0.5 10 ^3/uL (0.4-5.4); Lymphocytes % (auto) 12.8 % (10.0-50.0); Mean Corpuscular Hemoglobin 31.6 pg (28.0-32.0); Mean Corpuscular Hgb Conc. 34.4 g/dL (32.0-36.0); Mean Corpuscular Volume 91.9 fL (80.0-100.0); Monocytes % (auto) 13.3 % (0.0-12.0); Neutrophils % (auto) 71.8 % (37.0-80.0); Red Blood Cells 2.96 10^6/uL (4.5-5.90)
[2021-07-02 05:55] LABS: Red Cell Distribution Width 20.1 % (11.8-14.3)
[2021-07-02 06:00] LABS: BUN/Creatinine Ratio 23.6; Potassium 4.1 mmol/L (3.5-5.1)
[2021-07-02 08:15] VITALS: BP 95/49
[2021-07-02 09:00] VITALS: BP 95/49
[2021-07-02] MEDS: CITALOPRAM HYDROBR 20 MG TAB PO SCH (10:09)
[2021-07-02] MEDS: B-COMPLEX W/ C & FOLIC ACID(NEPHROVITE TAB) PO SCH (10:09)
[2021-07-02] MEDS: MUPIROCIN 2% OINT 15gm or 22gm EACHNOSTRI SCH ×2 (10:09→21:36)
[2021-07-02] MEDS: DOCUSATE SOD 100 MG CAP PO SCH ×2 (10:09→21:36)
[2021-07-02] MEDS: CYANOCOBALAMIN 500 MCG TAB PO SCH (10:10)
[2021-07-02] MEDS: METOPROLOL SUCCINATE XL 50 MG TAB PO SCH (10:10)
[2021-07-02] MEDS: CHOLECALCIFEROL (VITD3) 2,000 UNIT CAP/TAB PO SCH (10:10)
[2021-07-02] MEDS: ALLOPURINOL 300 MG TAB PO SCH (10:10)
[2021-07-02 13:00] VITALS: BP 96/69
[2021-07-02] MEDS: SODIUM CHLORIDE 0.9% 1,000 ML IV SCH (14:58)
[2021-07-02 17:02] VITALS: BP 98/73
[2021-07-02] MEDS: TAMSULOSIN HYDROCHLORIDE 0.4 MG CAP PO SCH (17:55)
[2021-07-02 22:00] VITALS: BP 94/53
[2021-07-03 05:00] VITALS: BP 102/69
[2021-07-03 06:25] LABS: % Iron Saturation 43.2 % (20-55)
[2021-07-03 06:28] LABS: BUN/Creatinine Ratio 23.7; Calcium 8.7 mg/dL (8.5-10.1)
[2021-07-03] MEDS ORDERED: VANCOMYCIN 500 MG in D5W 5% 100 ML IV ONE (07:00)
[2021-07-03 09:00] VITALS: BP 89/56
[2021-07-03] MEDS: METOPROLOL SUCCINATE XL 50 MG TAB PO SCH (10:00)
[2021-07-03 10:06] LABS: Folate (Folic Acid) > 24.00 ng/mL (5.38-24)
[2021-07-03] MEDS: SODIUM CHLORIDE 0.9% 1,000 ML IV SCH (10:45)
[2021-07-03] MEDS: CYANOCOBALAMIN 500 MCG TAB PO SCH (10:46)
[2021-07-03] MEDS: DOCUSATE SOD 100 MG CAP PO SCH ×2 (10:46→22:00)
[2021-07-03] MEDS: ALLOPURINOL 300 MG TAB PO SCH (10:46)
[2021-07-03] MEDS: B-COMPLEX W/ C & FOLIC ACID(NEPHROVITE TAB) PO SCH (10:47)
[2021-07-03] MEDS: MUPIROCIN 2% OINT 15gm or 22gm EACHNOSTRI SCH ×2 (10:47→22:36)
[2021-07-03] MEDS: CITALOPRAM HYDROBR 20 MG TAB PO SCH (10:47)
[2021-07-03 13:17] VITALS: BP 88/67
[2021-07-03] MEDS: CHOLECALCIFEROL (VITD3) 2,000 UNIT CAP/TAB PO SCH (14:39)
[2021-07-03 17:23] VITALS: BP 99/66
[2021-07-03] MEDS: TAMSULOSIN HYDROCHLORIDE 0.4 MG CAP PO SCH (17:40)
[2021-07-03 22:00] VITALS: BP 110/68
[2021-07-04 05:00] VITALS: BP 123/73
[2021-07-04] MEDS: SODIUM CHLORIDE 0.9% 1,000 ML IV SCH (06:08)
[2021-07-04] MEDS: MUPIROCIN 2% OINT 15gm or 22gm EACHNOSTRI SCH ×2 (08:34→21:35)
[2021-07-04] MEDS: B-COMPLEX W/ C & FOLIC ACID(NEPHROVITE TAB) PO SCH (08:35)
[2021-07-04] MEDS: ALLOPURINOL 300 MG TAB PO SCH (08:35)
[2021-07-04] MEDS: DOCUSATE SOD 100 MG CAP PO SCH ×2 (08:35→21:36)
[2021-07-04] MEDS: CYANOCOBALAMIN 500 MCG TAB PO SCH (08:35)
[2021-07-04] MEDS: CHOLECALCIFEROL (VITD3) 2,000 UNIT CAP/TAB PO SCH (08:35)
[2021-07-04] MEDS: METOPROLOL SUCCINATE XL 50 MG TAB PO SCH (08:36)
[2021-07-04] MEDS: CITALOPRAM HYDROBR 20 MG TAB PO SCH (08:36)
[2021-07-04 08:49] VITALS: BP 108/67
[2021-07-04 12:47] LABS: BUN/Creatinine Ratio 22.6; Phosphorus 1.8 mg/dL (2.5-4.90); Potassium 4.2 mmol/L (3.5-5.1)
[2021-07-04 13:26] VITALS: BP 99/65
[2021-07-04] MEDS ORDERED: VANCOMYCIN 750mg/250ml 250 ML IV ONE (16:00)
[2021-07-04 16:30] VITALS: BP 100/66
[2021-07-04] MEDS: TAMSULOSIN HYDROCHLORIDE 0.4 MG CAP PO SCH (18:02)
[2021-07-04] MEDS: PANTOPRAZOLE 40 MG/10 ML VIAL INJ IV SCH (21:35)
[2021-07-04 22:00] VITALS: BP 96/63
[2021-07-05] VITALS (10 sets, daily range): BP systolic 92–104; BP diastolic 62–76
[2021-07-05] MEDS: SODIUM CHLORIDE 0.9% 1,000 ML IV SCH ×2 (03:00→08:50)
[2021-07-05 06:37] LABS: Basophils # (auto) 0 10 ^3/uL (0-0.2); Basophils % (auto) 0.6 % (0.0-2.0); Eosinophils # (auto) 0.1 10 ^3/uL (0-0.8); Eosinophils % (auto) 1.9 % (0.0-7.0); Hematocrit 25.9 % (41.0-53.0); Hemoglobin 8.8 g/dL (13.5-17.5); Lymphocytes # (auto) 0.7 10 ^3/uL (0.4-5.4); Lymphocytes % (auto) 12.9 % (10.0-50.0); Mean Corpuscular Hemoglobin 32.4 pg (28.0-32.0); Mean Corpuscular Volume 95.3 fL (80.0-100.0); Monocytes # (auto) 0.4 10 ^3/uL (0-1.3); Monocytes % (auto) 7.1 % (0.0-12.0); Neutrophils % (auto) 77.5 % (37.0-80.0); Nucleated Red Blood Cells % 0.1 %; Red Blood Cells 2.72 10^6/uL (4.5-5.90); White Blood Cell 5.2 10^3/uL (4.4-10.8)
[2021-07-05] MEDS: CITALOPRAM HYDROBR 20 MG TAB PO SCH (10:58)
[2021-07-05] MEDS: B-COMPLEX W/ C & FOLIC ACID(NEPHROVITE TAB) PO SCH (10:58)
[2021-07-05] MEDS: DOCUSATE SOD 100 MG CAP PO SCH ×2 (10:58→21:38)
[2021-07-05] MEDS: PANTOPRAZOLE 40 MG/10 ML VIAL INJ IV SCH ×2 (10:58→21:37)
[2021-07-05] MEDS: MUPIROCIN 2% OINT 15gm or 22gm EACHNOSTRI SCH ×2 (10:58→21:38)
[2021-07-05] MEDS: CYANOCOBALAMIN 500 MCG TAB PO SCH (11:01)
[2021-07-05] MEDS: CHOLECALCIFEROL (VITD3) 2,000 UNIT CAP/TAB PO SCH (11:02)
[2021-07-05] MEDS: ALLOPURINOL 300 MG TAB PO SCH (11:02)
[2021-07-05] MEDS: METOPROLOL SUCCINATE XL 50 MG TAB PO SCH (13:50)
[2021-07-05] MEDS ORDERED: PATIENTS OWN MEDICATION (EPOGEN 10,000 UNITS) SUBCUT ONE (17:00)
[2021-07-05] MEDS: TAMSULOSIN HYDROCHLORIDE 0.4 MG CAP PO SCH (17:48)
[2021-07-05] MEDS ORDERED: EPOETIN ALFA-EPBX 10,000 UNIT/1ML VIAL SC ONE (21:00)
[2021-07-06] MEDS: SODIUM CHLORIDE 0.9% 1,000 ML IV SCH ×2 (00:36→18:00)
[2021-07-06 05:00] VITALS: BP 88/59
[2021-07-06 07:22] LABS: Potassium 3.7 mmol/L (3.5-5.1)
[2021-07-06 07:36] LABS: BUN/Creatinine Ratio 17.9; Calcium 8.8 mg/dL (8.5-10.1)
[2021-07-06 09:00] VITALS: BP 113/75
[2021-07-06] MEDS: DOCUSATE SOD 100 MG CAP PO SCH ×2 (10:00→22:00)
[2021-07-06] MEDS: PANTOPRAZOLE 40 MG/10 ML VIAL INJ IV SCH ×2 (10:24→22:04)
[2021-07-06] MEDS: B-COMPLEX W/ C & FOLIC ACID(NEPHROVITE TAB) PO SCH (10:24)
[2021-07-06] MEDS: CHOLECALCIFEROL (VITD3) 2,000 UNIT CAP/TAB PO SCH (10:24)
[2021-07-06] MEDS: CITALOPRAM HYDROBR 20 MG TAB PO SCH (10:25)
[2021-07-06] MEDS: CYANOCOBALAMIN 500 MCG TAB PO SCH (10:25)
[2021-07-06] MEDS: ALLOPURINOL 300 MG TAB PO SCH (10:25)
[2021-07-06] MEDS: METOPROLOL SUCCINATE XL 50 MG TAB PO SCH (10:27)
[2021-07-06] MEDS: MUPIROCIN 2% OINT 15gm or 22gm EACHNOSTRI SCH ×2 (10:33→22:04)
[2021-07-06] MEDS ORDERED: VANCOMYCIN 500 MG in D5W 5% 100 ML IV ONE (11:00)
[2021-07-06 13:00] VITALS: BP 110/68
[2021-07-06 17:00] VITALS: BP 103/63
[2021-07-06] MEDS: TAMSULOSIN HYDROCHLORIDE 0.4 MG CAP PO SCH (17:59)
[2021-07-06 22:00] VITALS: BP 121/68
[2021-07-07 05:00] VITALS: BP 100/64
[2021-07-07 08:00] VITALS: BP 106/75
[2021-07-07] MEDS: DOCUSATE SOD 100 MG CAP PO SCH (10:00)
[2021-07-07] MEDS: CYANOCOBALAMIN 500 MCG TAB PO SCH (10:04)
[2021-07-07] MEDS: PANTOPRAZOLE 40 MG/10 ML VIAL INJ IV SCH (10:04)
[2021-07-07] MEDS: MUPIROCIN 2% OINT 15gm or 22gm EACHNOSTRI SCH (10:04)
[2021-07-07] MEDS: CITALOPRAM HYDROBR 20 MG TAB PO SCH (10:04)
[2021-07-07] MEDS: CHOLECALCIFEROL (VITD3) 2,000 UNIT CAP/TAB PO SCH (10:09)
[2021-07-07] MEDS: ALLOPURINOL 300 MG TAB PO SCH (10:09)
[2021-07-07] MEDS: B-COMPLEX W/ C & FOLIC ACID(NEPHROVITE TAB) PO SCH (10:10)
[2021-07-07] MEDS: METOPROLOL SUCCINATE XL 50 MG TAB PO SCH (10:10)
[2021-07-07] MEDS: SODIUM CHLORIDE 0.9% 1,000 ML IV SCH (10:50)
[2021-07-07 12:42] VITALS: BP 106/72
[2021-07-07 13:00] VITALS: BP 115/65
== END 2021-07-07 15:21 | disposition home health service (06) | DRG 871 ==
LOC: EDBD 12:18 → ER 12:18 → TELE 16:26 → TELE-CENTR 06-29 20:45
PROVIDERS: ADMIT Hospitalist; ATTEND Internal Medicine Cardiovascular Disease
PROC: 30233N1 Transfusion of Nonautologous Red Blood Cells into Peripheral Vein, Percutaneous Approach (ICD-10-PCS; principal; 2021-07-01)
DX: A41.1 Sepsis due to other specified staphylococcus (principal); E43 Unspecified severe protein-calorie malnutrition; R53.2 Functional quadriplegia; I50.23 Acute on chronic systolic (congestive) heart failure; N39.0 Urinary tract infection, site not specified; I48.19 Other persistent atrial fibrillation; D68.59 Other primary thrombophilia; J96.11 Chronic respiratory failure with hypoxia; E87.2 Acidosis; I13.0 Hypertensive heart and chronic kidney disease with heart failure and stage 1 through stage 4 chronic kidney disease, or unspecified chronic kidney disease; N13.8 Other obstructive and reflux uropathy; D62 Acute posthemorrhagic anemia; N17.9 Acute kidney failure, unspecified; Z20.822 Contact with and (suspected) exposure to COVID-19; D69.6 Thrombocytopenia, unspecified; I25.5 Ischemic cardiomyopathy; M15.9 Polyosteoarthritis, unspecified; J44.9 Chronic obstructive pulmonary disease, unspecified; R31.0 Gross hematuria; N40.1 Benign prostatic hyperplasia with lower urinary tract symptoms; E86.9 Volume depletion, unspecified; D63.8 Anemia in other chronic diseases classified elsewhere; E86.1 Hypovolemia; F10.10 Alcohol abuse, uncomplicated; E78.5 Hyperlipidemia, unspecified; I25.10 Atherosclerotic heart disease of native coronary artery without angina pectoris; E87.6 Hypokalemia; K80.20 Calculus of gallbladder without cholecystitis without obstruction; R33.8 Other retention of urine; R62.7 Adult failure to thrive; Z79.01 Long term (current) use of anticoagulants; Z79.899 Other long term (current) drug therapy; Z80.0 Family history of malignant neoplasm of digestive organs; Z80.1 Family history of malignant neoplasm of trachea, bronchus and lung; Z80.3 Family history of malignant neoplasm of breast; Z80.42 Family history of malignant neoplasm of prostate; Z80.8 Family history of malignant neoplasm of other organs or systems; Z81.8 Family history of other mental and behavioral disorders; Z82.0 Family history of epilepsy and other diseases of the nervous system; Z82.3 Family history of stroke; Z82.49 Family history of ischemic heart disease and other diseases of the circulatory system; Z82.5 Family history of asthma and other chronic lower respiratory diseases; Z82.62 Family history of osteoporosis; Z83.3 Family history of diabetes mellitus; Z87.891 Personal history of nicotine dependence; Z95.810 Presence of automatic (implantable) cardiac defibrillator; Z98.84 Bariatric surgery status; Z68.29 Body mass index [BMI] 29.0-29.9, adult; Z88.2 Allergy status to sulfonamides; Z88.8 Allergy status to other drugs, medicaments and biological substances; N18.32 Chronic kidney disease, stage 3b; Y90.0 Blood alcohol level of less than 20 mg/100 ml
CPT/HCPCS: 36415; 74176; 76775; 80048; 80053; 80202; 80307; 81001; 82270; 82306; 82565; 82607; 82728; 82746; 83036; 83540; 83550; 83605; 83735; 83880; 83970; 84100; 84443; 84484; 85007; 85025; 85027; 85045; 85610; 85730; 86850; 86900; 86901; 86920; 87040; 87077; 87081; 87086; 87186; 87426; 93005; 96365; 97110; 97163; 97530; C9113; G0378; J0696; J7060; P9047